=== PATIENT | male | born 1965 | race Hispanic/Latino ===

== ENCOUNTER 2016-11-08 12:32 | Emergency (ER) | payer OTHER ==
[~2016-11-08] VITALS: Ht 167.6 cm; Wt 117.9 kg
[~2016-11-08 12:32] MED LIST: GUAIFENESIN-COD10 ML PO; MEDROL4 M2 PO; PERCOCET 5-3251 EACH PO; TESSALON PERLE100 M1 PO; VENTOLIN HFA18 GM INH; ZITHROMAX500 M2 PO
[2016-11-08 13:07] VITALS: BP 185/110
--- NOTE | 2016-11-08 15:05 | ED NECK/BACK PAIN COMPLAINT ---
History of Present Illness General Chief Complaint: Low Back Pain/Injury Stated Complaint: LOW BACK PAIN Source: patient, family, old records Exam Limitations: no limitations Vital Signs & Intake/Output Vital Signs & Intake/Output Vital Signs Date Time Temp Pulse Resp B/P Pulse O2 O2 Flow FiO2 Ox Delivery Rate 11/08 1307 97.4 96 18 185/110 96 Room Air Allergies Coded Allergies: latex (BLISTERS 09/14/16) Reconcile Medications Albuterol Sulfate (Ventolin Hfa) 90 MCG HFA.AER.AD 2 PUF INH Q4-6 PRN PRN SHORNTESS OF BREATH Oxycodone HCl/Acetaminophen (Percocet 5-325 MG Tablet) 5 MG-325 MG TABLET 1 TAB PO Q6 PRN PAIN Triage Note: STATES THAT HE HAS HERNIATED DISK AND HE IS HAVING BACK PAIN, ALSO STATES THAT HE WAS IN THE HOSPITAL IN SEPTEMBER AND THAT HE HAD A COATES AND SINCE HE IS HAVING A LOT OF PENILE PAIN AND IT HURTS WHEN HE URINATES Triage Nurses Notes Reviewed? yes Onset: Abrupt Duration: week(s):, constant Timing: recent history Quality/Severity: moderate Location: lumbar spine Radiation: buttocks Method of Injury: unknown Loss of Consciousness: no loss of consciousness Modifying Factors: movement (CHANGE IN POSITION) Associated Symptoms: DYSURIA X 1 YEAR S/P COATES CATH PLACEMENT HPI: 51-year-old male with history of hypertension presents to emergency room complaining of bilateral lower back pain for the past 2 weeks. He denies any known specific injury or trauma hours states he's been told in the past that he is herniated disks. Pain intermittently radiates into his buttocks. He denies any numbness or tingling urinary or bowel incontinence abdominal pain hematuria fever chills. The patient is also complaining of a one year history of dysuria urgency frequency with urination after he had a Coates catheter placed at [facility] due to dysuria hematuria. He has not sought care for the symptoms until today. He has not been taking anything for his back pain there's been no recent trauma or fall. He denies any penile discharge or scrotal pain (CAROLANN HAYES) Past History Travel History Traveled to [place] past 21 day No Medical History Any Pertinent Medical History? see below for history Neurological: CVA EENT: NONE Cardiovascular: myocardial infarction Respiratory: NONE Gastrointestinal: NONE Hepatic: NONE Renal: NONE Musculoskeletal: NONE Psychiatric: NONE Endocrine: NONE Blood Disorders: NONE Cancer(s): NONE VIDEO SYSTEM REPAIRER/Reproductive: NONE History of CDIFF: No Surgical History Surgical History: non-contributory Psychosocial History What is your primary language Estonian Tobacco Use: Never used ETOH Use: denies use Illicit Drug Use: denies illicit drug use Family History Hx Contributory? No (CAROLANN HAYES) Review of Systems Review of Systems Constitutional: Reports: see HPI. All Other Systems: Reviewed and Negative Comments Review of systems: See HPI, All other systems negative. Constitutional, no chills no fever, no malaise HEENT: no sore throat no congestion, no ear pain Cardiovascular: No chest pain , no palpitation Skin, no jaundice no rashes, no change in skin Respiratory: No dyspnea no cough no sputum GI: No nausea no vomiting, no diarrhea, : dysuria No hematuria, frequency, no discharge Muscle skeletal: No joint pain, no back pain, no neck pain, Neurologic: No numbness no headache Psych: No stress . Heme/endocrine: No bruising no bleeding Immunology: No lymphadenopathy (CAROLANN HAYES) Physical Exam Physical Exam General Appearance: well developed/nourished, alert, awake Neck: normal inspection, supple, full range of motion, normal alignment Comments: Well-developed well-nourished person in no acute distress HEENT: Normal EENT exam; PERRL, EOMI. HEAD is atraumatic. moist mucous membranes. Neck: Supple, no lymphadenopathy, normal range of motion Back: Bilateral paralumbar muscle tenderness palpation no midline tenderness, no CVA tenderness. Full range of motion Cardiovascular: Regular rate and rhythms no murmurs rubs Respiratory: Chest nontender.There were no bony deformities, no asymmetry. No respiratory distress. Patient speaking in full complete sentences. Breath sounds clear to auscultation bilaterally: NO W/R/R Abdomen: Soft, nontender nondistended Extremity: No edema, straight-leg raise bilaterally full range of motion of extremities, normal and equal pulses bilaterally, 5 out of 5 strength noted to bilateral upper and lower extremities Neuro: Alert oriented x3, motor sensory normal, There were no obvious focal neurologic abnormalities. Skin: No appreciable rash on exposed skin, skin is warm and dry. Psych: Mood and affect is normal, memory and judgment is normal. (CAROLANN HAYES) Progress Differential Diagnosis: cauda equina syn, herniated disc, myofascial strain, pyelo/UTI, sciatica, spinal cord inj, thoracic outlet syn, T/L spine injury, ureterolithiasis Plan of Care: Orders Procedure Date/time Status Add-on Test (ER Only) 11/08 1414 Active CULTURE,URINE 11/08 1313 Active URINALYSIS 11/08 1312 Complete Laboratory Tests 11/08/16 1313: Urine Color YEL, Urine Clarity HAZY H, Urine pH 6.0, Ur Specific [place] >= 1.030, Urine Protein 100 H, Urine Ketones 15 H, Urine Nitrite NEG, Urine Bilirubin NEG@ICTO, Urine Urobilinogen 1.0, Ur Leukocyte Esterase NEG, Ur Microscopic SEDIMENT EXAMINED, Urine WBC 1-3 H, Ur Epithelial Cells FEW, Urine Mucus MANY H, Urine Hemoglobin NEG, Urine Glucose NEG Microbiology 11/08 1313 URINE ROUT: Urine Culture - RECD I discussed with the patient his urinalysis results NEED for close follow-up with urology regarding his dysuria that he has had for the past 1 year urine culture was sent. Patient denies any fall or recent trauma. Patient clinically looks well. Patient has no evidence of radiculopathy. No urinary bowel dysfunction. No numbness in the genital area. Strength intact. Gross sensation intact. Patient resting comfortably and in no apparent distress. Pain is worse with range of motion. Pain is reproducible IN back with no bruising or ecchymosis noted. . Patient is to follow-up with primary care doctor. May need MRI of the lower back at some point time. No concerns for cauda equina at this point time. I considered this diagnosis but patient does not have any symptoms consistent with cauda equina. Patient has no secondary causes of back pain. No cardiac, pulmonary, or abdominal complaints. No abdominal pain on exam. Cardiac pulmonary exam within normal limits. No rashes, afebrile, denies recent weight loss, dizziness, lightheadedness. Patient is ambulatory with steady gait clear for discharge (CAROLANN HAYES) Departure Departure Time of Disposition: 1518 Disposition: HOME OR SELF CARE Condition: Stable Clinical Impression Primary Impression: Acute exacerbation of chronic low back pain Secondary Impressions: Dysuria Referrals: GEE JUNIOR MD UNKNOWN (PCP/Family) Additional Instructions: rest, ice, ibuprofen 800mg every 8 hours for pain. percocet for right through pain use caution as this is a narcotic and will make you drowsy. No driving or drinking alcohol while taking Medrol Dosepak as directed. Follow-up with urologist Dr. Junior These prescriptions were sent to [facility] Departure Forms: Customer Survey General Discharge Information (JUSTIN REGAN,CAROLANN) PA/WIND TURBINE BLADE REPAIR TECHNICIAN Co-Sign Statement Statement: ED Attending supervision documentation- [] I saw and evaluated the patient. I have also reviewed all the pertinent lab results and diagnostic results. I agree with the findings and the plan of care as documented in the PA's/WIND TURBINE BLADE REPAIR TECHNICIAN's documentation. [X] I have reviewed the ED Record and agree with the PA's/WIND TURBINE BLADE REPAIR TECHNICIAN's documentation. [] Additions or exceptions (if any) to the PAs/WIND TURBINE BLADE REPAIR TECHNICIAN's note and plan are summarized below: [] (MAYNOR TEMPLE DO
[2016-11-08] MEDS ORDERED: IBUPROFEN800 M1 PO (15:21)
[2016-11-08] MEDS ORDERED: MEDROL4 M2 PO (15:21)
[2016-11-08] MEDS ORDERED: PERCOCET 5-3251 EACH PO (15:21)
== END 2016-11-08 15:25 ==
LOC: ERH 12:32
DX: M54.5 Low back pain (principal); R30.0 Dysuria
CPT/HCPCS: 81001; 87086

== ENCOUNTER 2016-11-25 08:11 | Emergency (ER) | payer OTHER ==
[~2016-11-25] VITALS: Ht 167.6 cm; Wt 117.9 kg
[~2016-11-25 08:11] MED LIST changes: +IBUPROFEN800 M1 PO
[2016-11-25 08:50] LABS: ABSOLUTE BASOPHIL COUNT 0 /CUMM (0.0-0.2); ABSOLUTE EOSINOPHIL COUNT 0.2 /CUMM (0.0-0.7); ABSOLUTE GRANULOCYTE CT 7.9 /CUMM (1.4-6.5); ABSOLUTE LYMPH COUNT 2.3 /CUMM (1.2-3.4); ABSOLUTE MONOCYTE COUNT 0.6 /CUMM (0.10-0.60); BASOPHIL % 0.4 % (0.0-2.0); EOSINOPHIL % 1.7 % (0-5); GRANULOCYTE % 72.1 % (42.2-75.2); MEAN CORPUSCULAR HGB 31.5 PG (27.0-31.0); MEAN CORPUSCULAR HGB CONC 34.4 G/DL (33.0-37.0); MEAN CORPUSCULAR VOLUME 91.6 FL (80.0-94.0); MEAN PLATELET VOLUME 8.8 FL (7.4-10.4); PLATELET COUNT 280 /CUMM (130-400); RBC DISTRIBUTION WIDTH 14.3 % (11.5-14.5); RED BLOOD CELL CT 5.13 /CUMM (4.70-6.10); WHITE BLOOD CELL COUNT 10.9 /CUMM (4.8-10.8)
--- NOTE | 2016-11-25 08:57 | ED GENERAL ADULT ---
History of Present Illness General Chief Complaint: Abdominal Pain/Flank Pain Stated Complaint: BIBA, ABD PAIN Source: patient, old records Exam Limitations: no limitations Allergies Coded Allergies: latex (BLISTERS 09/14/16) Reconcile Medications Cholesterol Control,High & Low (Accutrend Cholesterol Control) 1 EACH EACH CHOLESTEROL (Reported) UNKNOWN NAME OF MED/DOSE Ibuprofen 800 MG TABLET 1 TAB PO TID PAIN Metoprolol Succ XL (Toprol XL) 25 MG TAB HTN (Reported) PT UNSURE OF DOSE Ondansetron HCl (Zofran) 4 MG TABLET 1 TAB PO Q6 NAUSEA Triage Note: PT BIBA FROM HOME FOR C/O ABD PAIN AND PRE-SYNCOPE THIS AM. PT WAS AWAKENED BY EPIGASTRIC PAIN. PT AMBULATED TO BATHROOM, FELT NAUSEOUS AND LIKE HE WAS GOING TO PASS OUT. PT DID NOT PASS OUT. DENIES SOB, C/P. ARRIVES HYPERTENSIVE AT 218/118. PT IS COMPLIANT WITH [facility]. H/O MA LAST YEAR. DR CORCORAN IN FOR EVAL. Triage Nurses Notes Reviewed? yes HPI: 51-year-old man seen for evaluation of low back pain, abdominal pain, nausea, and dizziness. He reports waking up at 6 AM this morning and feeling very dizzy when he went to stand up and felt "not right". He sat on the bed feeling nauseated with associated abdominal pain and called his sister whom then subsequently called emergency medical services. He is currently complaining of lightheadedness, chills, dizziness, chest pain, shortness of breath, abdominal pain, low back pain, nausea and denies any blurred/double vision, confusion, fever, vomiting, numbness/tingling. His blood pressure was reportedly markedly elevated in the field and he reports taking his blood pressure medication last night and this morning. (JEWELL CATALAN,KARENA) Vital Signs & Intake/Output Vital Signs & Intake/Output Vital Signs Date Time Temp Pulse Resp B/P Pulse O2 O2 Flow FiO2 Ox Delivery Rate 11/25 1211 97.4 82 18 152/100 95 Room Air 11/25 1106 92 Room Air 11/25 1025 98.9 79 20 150/100 94 Room Air 11/25 0924 85 20 160/100 93 Room Air 11/25 0900 98 Nasal 2.0L Cannula 11/25 0821 100 20 96 Nasal 2.0L Cannula 11/25 0817 99.0 99 20 218/118 89 Room Air Past History Travel History Traveled to [place] past 21 day No Medical History Any Pertinent Medical History? see below for history Neurological: CVA EENT: NONE Cardiovascular: myocardial infarction Respiratory: NONE Gastrointestinal: NONE Hepatic: NONE Renal: NONE Musculoskeletal: NONE Psychiatric: NONE Endocrine: NONE Blood Disorders: NONE Cancer(s): NONE HEALTHCARE SCIENCE SPECIALIST/Reproductive: NONE History of CDIFF: No Surgical History Surgical History: non-contributory Psychosocial History What is your primary language Arabic Tobacco Use: Current Not Daily ETOH Use: denies use Illicit Drug Use: denies illicit drug use Family History Hx Contributory? No (KARENA CORCORAN MD) Review of Systems Review of Systems Constitutional: Reports: see HPI. (KARENA CORCORAN MD) Physical Exam Physical Exam General Appearance: well developed/nourished, mild distress Comments: General -well-developed, obese man in mild distress HEENT - NCAT, PERRL, EOMI, anicteric sclera Cardio - S1, S2 w/o murmurs/gallops/rubs Resp -bibasilar wheezing without any obvious crackles GI - soft, epigastric tenderness without guarding or rigidity, nondistended, bowel sounds present Neuro - Awake and alert, CN II - XII grossly intact Extremities - no edema, pulses intact Core Measures ACS in differential dx? No CVA/TIA Diagnosis: No Severe Sepsis Present: No Septic Shock Present: No (KARENA CORCORAN MD) Progress Differential Diagnoses I considered the following diagnoses in my evaluation of the patient: Gastroenteritis, influenza, pancreatitis Initial ED EKG: normal p-waves, normal sinus rhythm, abnormal Q waves, poor R- wave progression Comments: Given the acute onset of patient's complaints multiple lab studies were ordered to rule out diagnoses such as pancreatitis, infection, or cardiac issues. Complete blood count was within normal limits. Compensative metabolic panel demonstrated glucose of 294 with a normal lipase. Rapid flu was negative. Patient was given intravenous normal saline, Zofran, acetaminophen, and Percocet for pain. EKG was unremarkable demonstrating only old Q waves. Blood/urine cultures were obtained. Urinalysis was unremarkable. Patient was ordered a regular diet for lunch which he tolerated well. Patient is to be discharged to home with a prescription for Zofran and ibuprofen for pain with instruction to follow-up with his primary care provider for further evaluation. (KARENA CORCORAN MD) Plan of Care: Orders Procedure Date/time Status Regular Diet 11/25 L Active RAPID VIRAL INFLUENZA A 11/25 834 Complete CULTURE,URINE 11/25 834 Active BLOOD CULTURE 11/25 834 Active URINALYSIS 11/25 834 Complete LIPASE 11/25 834 Complete COMPREHENSIVE METABOLIC PANEL 11/25 834 Complete CBC WITHOUT DIFFERENTIAL 11/25 834 Complete EKG 11/25 821 Active Laboratory Tests 11/25/16 1030: Urinalysis LIGHT H, Urine Color YEL, Urine Clarity HAZY H, Urine pH 6.0, Ur Specific [place] 1.025, Urine Protein TRACE H, Urine Ketones NEG, Urine Nitrite NEG, Urine Bilirubin NEG, Urine Urobilinogen 0.2, Ur Leukocyte Esterase NEG, Ur Microscopic SEDIMENT EXAMINED, Urine RBC 1-3, Urine WBC 1-3 H, Ur Epithelial Cells MOD H, Hyaline Casts FEW H, Urine Mucus MANY H, Urine Hemoglobin NEG, Urine Glucose >=1000 H 11/25/16 0912: Anion Gap 8, Estimated GFR > 60, BUN/Creatinine Ratio 15.0, Glucose 294 H, Calcium 8.6, Total Bilirubin 0.4, AST 24, ALT 57, Alkaline Phosphatase 104, Total Protein 5.3 L, Albumin 3.1 L, Globulin 2.2, Albumin/Globulin Ratio 1.4, Lipase 73 11/25/16 0840: CBC w Diff NO MAN DIFF REQ, RBC 5.13, MCV 91.6, MCH 31.5 H, RDW 14.3, MPV 8.8, Gran % 72.1, Lymphocytes % 20.7, Monocytes % 5.1, Eosinophils % 1.7, Basophils % 0.4, Absolute Granulocytes 7.9 H, Absolute Lymphocytes 2.3, Absolute Monocytes 0.6, Absolute Eosinophils 0.2, Absolute Basophils 0, PUBS MCHC 34.4 Microbiology 11/25 1030 URINE ROUT: Urine Culture - RECD 11/25 911 BLOOD: Blood Culture - RECD 11/25 911 BLOOD: Blood Culture - RECD Departure Departure Disposition: HOME OR SELF CARE Condition: Stable Clinical Impression Primary Impression: Viral gastroenteritis Referrals: UNKNOWN Additional Instructions: Take Zofran and ibuprofen as directed for your symptoms of pain and nausea. Follow-up with your primary care provider after discharge. Call 911 or return to the ED should your symptoms worsen. Departure Forms: Customer Survey General Discharge Information Prescriptions: Current Visit Scripts Ondansetron HCl (Zofran) 1 TAB PO Q6 #20 TAB Ibuprofen 1 TAB PO TID #30 TAB (KARENA CORCORAN MD) Resident Co-Sign Statement Statement: ED Attending supervision documentation- [x] I saw and evaluated the patient. I have also reviewed all the pertinent lab results and diagnostic results. I agree with the findings and the plan of care as documented in the Resident's documentation. [] I have reviewed the ED Record and agree with the Resident's documentation. [] Additions or exceptions (if any) to the Resident's note and plan are summarized below: [] (LUCY CATALAN,MAYNOR Berry) Critical Care Note Critical Care Note Critical Care Time: non-applicable (KARENA CORCORAN MD)
[2016-11-25] MEDS ORDERED: ACCUTREND CHOL1 EAC1 (09:02)
[2016-11-25] MEDS ORDERED: TOPROL XL25 M1 PO (09:02)
--- NOTE | 2016-11-25 09:11 | RADIOLOGY REPORT ---
EXAMINATION: XR PORTABLE CHEST CLINICAL INFORMATION: Pneumonia COMPARISON: None TECHNIQUE: Portable AP semiupright 55 degrees view of the chest was obtained. FINDINGS: Lung volumes are low likely due to suboptimal inspiration. Minimal linear opacity at the left base likely discoid atelectasis. Lungs otherwise clear. The cardiac silhouette mediastinum and pulmonary vascularity are normal. IMPRESSION: Low lung volumes likely due to suboptimal inspiration. Minimal linear opacity at the left base likely discoid atelectasis No radiographic signs specific or suggestive of pneumonia
[2016-11-25] MEDS ORDERED: ZOFRAN4 M2 PO (12:03)
[2016-11-25] MEDS ORDERED: IBUPROFEN800 M1 PO (12:03)
[2016-11-25 12:11] VITALS: BP 152/100
== END 2016-11-25 12:39 ==
LOC: ERH 08:11
PROVIDERS: Emergency Medicine
DX: A08.4 Viral intestinal infection, unspecified (principal); R42 Dizziness and giddiness; R07.9 Chest pain, unspecified; R06.02 Shortness of breath; M54.5 Low back pain
CPT/HCPCS: 81001; 87040; 87086; 87804; 87804-59; 93005; 93010; 96361; 96374; 96375; J0131; J2405

== ENCOUNTER 2017-01-05 17:41 | Observation (INO) | payer OTHER ==
[~2017-01-05] VITALS: Ht 167.6 cm; Wt 117.9 kg
[~2017-01-05 17:41] MED LIST changes: +ACCUTREND CHOL1 EAC1; +TOPROL XL25 M1 PO; +ZOFRAN4 M2 PO
--- NOTE | 2017-01-05 17:45 | NUR ---
PT STATES HE HAD A STROKE AND AN ME LAST YEAR. PT STATES LAST NIGHT HE WAS ASLEEP AND HAD TO GO TO THE BATHROOM AND STATES HE HAD A DIFFICULTY GETTING OUT OF BED SO HE TOOK A NITRO PILL. PT STATES TODAY HIS IS HAVING NUMBNESS AND PAIN IN THE RIGHT SIDE OF HIS HEAD.
--- NOTE | 2017-01-05 19:59 | NUR ---
PT TO ROOM 7, AMB WITH NO DIFFICULTY, AWAITING EVAL AT THIS TIME
--- NOTE | 2017-01-05 20:16 | ED NEURO DEFICIT/STROKE ---
History of Present Illness General Chief Complaint: General Adult Stated Complaint: FACIAL PAIN/NUMB SHOULDER Source: patient, old records Exam Limitations: no limitations Vital Signs & Intake/Output Vital Signs & Intake/Output Vital Signs Date Time Temp Pulse Resp B/P Pulse O2 O2 Flow FiO2 Ox Delivery Rate 01/05 2206 99 Room Air 01/05 2041 151/84 01/05 1744 97.7 114 16 167/109 98 Room Air Allergies Coded Allergies: latex (BLISTERS 09/14/16) Reconcile Medications Cholesterol Control,High & Low (Accutrend Cholesterol Control) 1 EACH EACH CHOLESTEROL (Reported) UNKNOWN NAME OF MED/DOSE Ibuprofen 800 MG TABLET 1 TAB PO TID PAIN Metoprolol Succ XL (Toprol XL) 25 MG TAB HTN (Reported) PT UNSURE OF DOSE Ondansetron HCl (Zofran) 4 MG TABLET 1 TAB PO Q6 NAUSEA Triage Note: PT STATES HE HAD A STROKE AND AN [place] LAST YEAR. PT STATES LAST NIGHT HE WAS ASLEEP AND HAD TO GO TO THE BATHROOM AND STATES HE HAD A DIFFICULTY GETTING OUT OF BED SO HE TOOK A NITRO PILL. PT STATES TODAY HIS IS HAVING NUMBNESS AND PAIN IN THE RIGHT SIDE OF HIS HEAD. Triage Nurses Notes Reviewed? yes Onset: Abrupt Duration: day(s): (5), constant, continues in ED Timing: recent history Severity: moderate, severe Altered Sensations: RUE, RLE, right facial Glaucoma? No HPI: [id number] male comes in to emergency room complaining of right-sided numbness through his entire body. Patient reports that he feels like his eye is out of the right side. Patient has been experiencing pain in the right side of his face. Denies any slurred speech. Denies any vomiting or vision loss. Patient reports that he has a history of previous stroke and heart attack. He has a history of hypertension as well. Denies any anticoagulants. Symptoms began about 5 days ago on Tuesday. Patient reports he does not know why he took so long to come in. (AYANNA VAZQUEZ) Past History Travel History Traveled to [place] past 21 day No Medical History Any Pertinent Medical History? 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 No (AYANNA VAZQUEZ) Review of Systems Review of Systems Constitutional: Reports: no symptoms. EENTM: Reports: no symptoms. Respiratory: Reports: no symptoms. Cardiovascular: Reports: no symptoms. GI: Reports: no symptoms. Genitourinary: Reports: no symptoms. Musculoskeletal: Reports: no symptoms. Skin: Reports: no symptoms. Neurological/Psychological: Reports: see HPI. Hematologic/Endocrine: Reports: no symptoms. Immunologic/Allergic: Reports: no symptoms. All Other Systems: Reviewed and Negative (AYANNA VAZQUEZ) Physical Exam Physical Exam General Appearance: well developed/nourished, no apparent distress, alert Head: atraumatic, normal appearance Eyes: Bilateral: normal appearance, PERRL, EOMI. Ears, Nose, Throat: normal ENT inspection, moist mucous membrane Neck: normal inspection, supple, full range of motion Respiratory: normal breath sounds, no respiratory distress Cardiovascular: regular rate/rhythm Gastrointestinal: soft Back: normal inspection Extremities: normal range of motion Psychiatric: awake, alert, oriented x 3 Cranial Nerves: normal hearing, normal speech, PERRL Coordination/Gait: normal gait Motor/Sensory: no motor/sensory deficits, decreased sensation right side of body Skin: intact, normal color Core Measures CVA/TIA Diagnosis: Yes Severe Sepsis Present: No Septic Shock Present: No (AYANNA VAZQUEZ) Progress Differential Diagnosis: acute glaucoma, Berg's Palsy, drug intoxication, electrolyte imbalance, encephalitis, hypoglycemia, intracranial Hem., intracranial mass/tumor, meningitis, migraine STEVEN, seizure disorder, stroke, subarachnoid Hem., vertebrobasilar insuff. Plan of Care: Orders Procedure Date/time Status Patient Data 01/[address] in observation 01/05 2154 Active TROPONIN LEVEL 01/06 2016 Complete COMPREHENSIVE METABOLIC PANEL 01/06 2016 Complete CBC WITHOUT DIFFERENTIAL 01/06 2016 Complete EKG 01/06 2016 Active Laboratory Tests 01/05/172027: Anion Gap 6, Estimated GFR > 60, BUN/Creatinine Ratio 25.0, Glucose 299 H, Calcium 9.3, Total Bilirubin 0.4, AST 22, ALT 52, Alkaline Phosphatase 143 H, Troponin I < 0.01, Total Protein 5.8 L, Albumin 3.5, Globulin 2.3, Albumin/ Globulin Ratio 1.5, CBC w Diff NO MAN DIFF REQ, RBC 5.01, MCV 91.8, MCH 30.9, RDW 14.0, MPV 8.1, Gran % 70.5, Lymphocytes % 21.8, Monocytes % 5.7, Eosinophils % 1.6, Basophils % 0.4, Absolute Granulocytes 9.2 H, Absolute Lymphocytes 2.8, Absolute Monocytes 0.7 H, Absolute Eosinophils 0.2, Absolute Basophils 0.1, PUBS MCHC 33.7 Diagnostic Imaging: Viewed by Me: CT Scan. Discussed w/RAD: CT Scan. Radiology Impression: EXAM TYPE: CAT - CT HEAD WO IV CONTRAST EXAMINATION: CT HEAD WITHOUT CONTRAST CLINICAL INFORMATION: 51-year-old man with right sided numbness. COMPARISON: None TECHNIQUE: Contiguous axial imaging was performed from the skull base to vertex without intravenous administration of contrast. DLP: 601 mGy-cm FINDINGS: There is no evidence of acute intracranial hemorrhage or territorial infarction. No abnormal mass effect or midline shift is seen. Spears to white matter differentiation is well preserved. No extra-axial fluid collections are identified. The ventricles are normal in size. There is no abnormal attenuation within the brain parenchyma. The osseous structures and soft tissues are normal. The mastoid air cells and visualized portions of the paranasal sinuses are well aerated. IMPRESSION: No acute intracranial pathology. DICTATED BY: BEATA VILLALBA MD DATE/TIME DICTATED:01/05/172053 POINTER HELPER: JONATHAN DATE/TIME TRANSCRIBED:01/05/172053 Initial ED EKG: normal intervals, normal p-waves, normal QRS complex, normal sinus rhythm, rate (95) Prior EKG: unchanged (AYANNA VAZQUEZ) Departure Departure Disposition: STILL A PATIENT Condition: Stable Clinical Impression Primary Impression: Lacunar infarct, acute Referrals: HAVEN CATALAN,DAISY Fowler (PCP/Family) Departure Forms: Customer Survey General Discharge Information Observation Note Spoke With: TANISHA HENDRICKSON MD Physician Advisor Notified: RICHARD CATALAN,CORTEZ [address] Patient In: Non-ED OBS Care Area Rationale for Observation: My rational for observation is as follows . Patient will require neurology consultation. MRI. Carotid artery Dopplers. Echocardiogram. Blood pressure management. (RANDOLPH REGAN,AYANNA) PA/OFFICE ADMINISTRATOR Co-Sign Statement Statement: ED Attending supervision documentation- [] I saw and evaluated the patient. I have also reviewed all the pertinent lab results and diagnostic results. I agree with the findings and the plan of care as documented in the PA's/OFFICE ADMINISTRATOR's documentation. [X] I have reviewed the ED Record and agree with the PA's/OFFICE ADMINISTRATOR's documentation. [] Additions or exceptions (if any) to the PAs/OFFICE ADMINISTRATOR's note and plan are summarized below: [] (RICHARD CATALAN,CORTEZ [place])
[2017-01-05 20:45] LABS: ABSOLUTE BASOPHIL COUNT 0.1 /CUMM (0.0-0.2); ABSOLUTE EOSINOPHIL COUNT 0.2 /CUMM (0.0-0.7); ABSOLUTE GRANULOCYTE CT 9.2 /CUMM (1.4-6.5); ABSOLUTE LYMPH COUNT 2.8 /CUMM (1.2-3.4); ABSOLUTE MONOCYTE COUNT 0.7 /CUMM (0.10-0.60); BASOPHIL % 0.4 % (0.0-2.0); EOSINOPHIL % 1.6 % (0-5); GRANULOCYTE % 70.5 % (42.2-75.2); MEAN CORPUSCULAR HGB 30.9 PG (27.0-31.0); MEAN CORPUSCULAR HGB CONC 33.7 G/DL (33.0-37.0); MEAN CORPUSCULAR VOLUME 91.8 FL (80.0-94.0); MEAN PLATELET VOLUME 8.1 FL (7.4-10.4); PLATELET COUNT 297 /CUMM (130-400); RED BLOOD CELL CT 5.01 /CUMM (4.70-6.10); WHITE BLOOD CELL COUNT 13.1 /CUMM (4.8-10.8)
--- NOTE | 2017-01-05 20:49 | NUR ---
PT C/O "A REALLY BAD HEADACHE" AND REQUESTING THIS RN TO TURN VOLUME ON TV UP, WILL NOTIFY PROVIDER.
--- NOTE | 2017-01-05 21:02 | CT SCAN REPORT ---
EXAMINATION: CT HEAD WITHOUT CONTRAST CLINICAL INFORMATION: 51-year-old man with right sided numbness. COMPARISON: None TECHNIQUE: Contiguous axial imaging was performed from the skull base to vertex without intravenous administration of contrast. DLP: 601 mGy-cm FINDINGS: There is no evidence of acute intracranial hemorrhage or territorial infarction. No abnormal mass effect or midline shift is seen. Spears to white matter differentiation is well preserved. No extra-axial fluid collections are identified. The ventricles are normal in size. There is no abnormal attenuation within the brain parenchyma. The osseous structures and soft tissues are normal. The mastoid air cells and visualized portions of the paranasal sinuses are well aerated. IMPRESSION: No acute intracranial pathology.
--- NOTE | 2017-01-05 22:04 | NUR ---
IV ESTABLISHED, PT CONTINUES TO COMPLAIN OF SEVERE R SIDED HEAD PAIN, REPORTING NO RELIEF WITH PERCOCET, MEDICATED WITH ASA PER EMAR. ALL NEUROS GROSSLY IN CHECK, REQUESTING TV VOLUME TURNED UP AND TEXTING ON CELL PHONE.
--- NOTE | 2017-01-05 22:12 | NUR ---
PLEASE CALL SON WITH ANY QUESTIONS OR CONCERNS: NIGHAT MAIN [phone]
--- NOTE | 2017-01-05 22:34 | NUR ---
PT MEDICATED WITH MORPHINE PER EMAR
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
--- NOTE | 2017-01-05 23:04 | NUR ---
HOUSE STAFF TO BEDSIDE
[2017-01-05] MEDS ORDERED: ATORVASTATIN CA40 M1 PO (23:11)
--- NOTE | 2017-01-05 23:48 | NUR ---
PT GOING TO ROOM 179-2
--- NOTE | 2017-01-05 23:59 | NUR ---
MEDICATED WITH TYLENOL FOR C/O HEADACHE
[2017-01-06 01:34] VITALS: BP 150/80
--- NOTE | 2017-01-06 03:35 | NUR ---
PT ARRIVED TO FLOOR APPX 0130 WITH MONITOR AND ER NURSE AND MST. PT CALM AND COOPERATIVE, A&0 X 3, NSR ON MONITOR, 94% ON RA, ABDOMEN DISTENDED MILDLY FIRM, BOWEL SOUNDS POSITIVE, 10/10 PAIN HEADACHE. LUNG SOUNDS CLEAR. PT REQUESTED FOOD AND WAS GIVEN CEREAL AND MILK. PAIN MEDICATION ADMINISTERED APPX 0300, PT RESTING COMFORTABLY. WILL CONTINUE TO MONITOR
[2017-01-06 08:04] VITALS: BP 152/82
[2017-01-06 08:32] LABS: ABSOLUTE BASOPHIL COUNT 0 /CUMM (0.0-0.2); ABSOLUTE EOSINOPHIL COUNT 0.3 /CUMM (0.0-0.7); ABSOLUTE GRANULOCYTE CT 6.1 /CUMM (1.4-6.5); ABSOLUTE LYMPH COUNT 3.4 /CUMM (1.2-3.4); ABSOLUTE MONOCYTE COUNT 0.8 /CUMM (0.10-0.60); BASOPHIL % 0.4 % (0.0-2.0); EOSINOPHIL % 2.6 % (0-5); GRANULOCYTE % 57.7 % (42.2-75.2); HEMATOCRIT 48.8 % (42-52); MEAN CORPUSCULAR HGB 31.1 PG (27.0-31.0); MEAN CORPUSCULAR HGB CONC 33.5 G/DL (33.0-37.0); MEAN CORPUSCULAR VOLUME 92.8 FL (80.0-94.0); MEAN PLATELET VOLUME 8.2 FL (7.4-10.4); PLATELET COUNT 291 /CUMM (130-400); RBC DISTRIBUTION WIDTH 14.3 % (11.5-14.5); RED BLOOD CELL CT 5.26 /CUMM (4.70-6.10); WHITE BLOOD CELL COUNT 10.6 /CUMM (4.8-10.8)
--- NOTE | 2017-01-06 08:54 | PN- Housestaff ---
JUNAID DORSEY 01/06/17 0854: Subjective Follow-up For: Right-sided numbness, speech difficulty Right-sided headache Complaints: no complaints Tele-Events Since Last Visit: Normal sinus rhythm, heart rate 70-84. No overnight events. Subjective: Patient was comfortable this morning. Did not have any complaints. Took a detailed history, and examining him. As per the patient, he has been compliant with his medications. As per patient, he had similar complaints in the past with tingling numbness sensation in right upper and lower extremities. He also had numbness on the same side of the face, and tremors on the right side of right upper extremity. Did not have any loss of bladder/bowel function. No clear history of seizures. Current smoker, and has not been adherent with good dietary habits. Seemed concerned about his elevated HbA1c. Discussed with him about weight loss, and adherence to medications. Review of Systems Constitutional: Reports: see HPI. Objective Last 24 Hrs of Vital Signs/I&O Vital Signs Date Time Temp Pulse Resp B/P Pulse O2 O2 Flow FiO2 Ox Delivery Rate 01/06 0804 97.9 88 20 152/82 93 Room Air 01/06 0134 97.5 86 20 150/80 94 Room Air 01/05 2253 98.3 84 14 155/94 100 Room Air 01/05 2206 99 Room Air 01/05 2041 151/84 01/05 1744 97.7 114 16 167/109 98 Room Air Intake & Output 01/06 1600 01/06 0800 01/06 0000 Intake Total 370 Output Total 300 Balance 70 Intake, IV 50 Intake, Oral 320 Output, Urine 300 Patient 260 lb 260 lb Weight Physical Exam General Appearance: No Acute Distress Other Physical Findings: General Exam: AAOx3, No acute distress, Skin: No rashes, no breakdown HEENT: PERRLA, EOMI Neck: Supple, No JVD No cervical lymphadenopathy CVS: Reg Rate, Normal S1,S2, No MGR Resp: Normal air entry, no ronchi/rales Abdomen: Soft, No tenderness, Normal Bowel Sounds Neuro: Normal Speech, Strength 5/5 b/l x 4 extremities, Sensation intact, CN III -XII NL, Reflexes 2+, no focal neurological deficits noted. Extremities: No cyanosis, pedal edema, tremors on the right upper extremity ( intentional) Current Medications: Current Medications Sig/Glenda Start time Last Medication Dose Route Stop Time Status Admin Acetaminophen 0 .STK-MED ONE 01/057 DC PO Acetaminophen 650 MG Q6P PRN 01/05 2315 AC 01/06 PO 0000 Aspirin 81 MG ONCE ONE 01/05 2200 DC 01/05 PO 01/05 Aspirin 0 .STK-MED ONE 01/05 2159 DC PO Aspirin Buffered 81 MG DAILY 01/06 1000 AC PO Atorvastatin Calcium 40 MG 1700 01/06 170 AC PO Enoxaparin Sodium 40 MG DAILY 01/06 1000 AC SC Ibuprofen 600 MG Q6P PRN 01/05 2315 AC PO Morphine Sulfate 0 .STK-MED ONE 01/05 2226 DC .ROUTE Morphine Sulfate 4 MG ONCE ONE 01/05 2200 DC 01/05 IV 01/05 Oxycodone/ 2 TAB Q6P PRN 01/05 2315 AC 01/06 Acetaminophen PO 0703 Oxycodone/ 1 TAB ONCE ONE 01/05 2200 DC 01/05 Acetaminophen PO 01/05 Oxycodone/ 0 .STK-MED ONE 01/05 2117 DC Acetaminophen PO Last 24 Hrs of Lab/Jose Results Last 24 Hrs of Labs/Mics: Laboratory Tests 01/06/17 0635: Anion Gap 8, Estimated GFR Pending, BUN/Creatinine Ratio 26.7 H, Triglycerides 118, Cholesterol 144, LDL Cholesterol, Calc 69, HDL Cholesterol 52, Cholesterol/ HDL Ratio 3, CBC w Diff NO MAN DIFF REQ, RBC 5.26, MCV 92.8, MCH 31.1 H, RDW 14.3, MPV 8.2, Gran % 57.7, Lymphocytes % 32.0, Monocytes % 7.3, Eosinophils % 2.6, Basophils % 0.4, Absolute Granulocytes 6.1, Absolute Lymphocytes 3.4, Absolute Monocytes 0.8 H, Absolute Eosinophils 0.3, Absolute Basophils 0, PUBS MCHC 33.5 01/05/172027: Anion Gap 6, Estimated GFR > 60, BUN/Creatinine Ratio 25.0, Glucose 299 H, Hemoglobin A1c Pending, Calcium 9.3, Total Bilirubin 0.4, AST 22, ALT 52, Alkaline Phosphatase 143 H, Troponin I < 0.01, Total Protein 5.8 L, Albumin 3.5, Globulin 2.3, Albumin/Globulin Ratio 1.5, TSH 0.906, Free T4 1.21, CBC w Diff NO MAN DIFF REQ, RBC 5.01, MCV 91.8, MCH 30.9, RDW 14.0, MPV 8.1, Gran % 70.5, Lymphocytes % 21.8, Monocytes % 5.7, Eosinophils % 1.6, Basophils % 0.4, Absolute Granulocytes 9.2 H, Absolute Lymphocytes 2.8, Absolute Monocytes 0.7 H, Absolute Eosinophils 0.2, Absolute Basophils 0.1, PUBS MCHC 33.7 Assessment/Plan Assessment: Mr. Haq is a 51-year-old man with a past history of hypertension, hyperlipidemia, coronary artery disease, history of DVT (prolonged), previous symptoms of neurological deficits is being evaluated for right-sided facial and upper and lower extremity numbness/pain in sensation 3 days. At the time of admission, vitals-temperature 97.7, pulse rate 84, respiration 16 , blood pressure 155/94, pulse ox 99% on room air. Findings indicated WBC 13.1, hemoglobin 15.5, platelets 297, sodium 132, potassium 4.3, BUN 15, serum creatinine 0.6. Alkaline phosphatase 143, with normal AST and ALT. Cardiac enzymes-negative. Neurological findings-CT head did not reveal any acute process. Admission diagnosis: #1 to rule out CVA #2 seizure #3 conversion disorder Below is the problem list and plan: #1 tingling, numbness sensation on the right side of the body-likely due to CVA. CT head was unremarkable for any acute intracranial bleed/infarct. Patient declines MRI, for further evaluation. Reports claustrophobia. TSH within normal limits. Seizure precaution. Neuro checks. Permissive hypertension at least for the next 24 hours. Resume antihypertensives in the a.m. Aspirin and high-dose statin. #2 hypertension-continue antihypertensives, at home dose. Start in a.m. Start lisinopril 10 mg by mouth daily. Shown to have beneficial effects CVA. #3 diabetes-HbA1c 9.9. Insulin sliding scale low-dose. Start long-acting insulin in the a.m. May benefit from DPP 4 inhibitor. #4 pain management-currently on oxycodone. Start gabapentin for neuropathic pain, has these symptoms could likely be from complications of diabetes. #5 DVT prophylaxis-mechanical. May start heparin subcutaneous in a.m. given history of strokes. Continue to monitor on telemetry for any arrhythmias. Problem List: 1. HLD (hyperlipidemia) 2. HTN (hypertension) 3. History of DC (myocardial infarction) 4. Acute exacerbation of chronic low back pain Pain Ratin Pain Location: Low back Pain Goal: Pain 4 or less Pain Plan: Oxycodone Ibuprofen Tomorrow's Labs & Rationales: No labs necessary. Current labs stable. TIESHA HAIDER MD 01/06/17 1143: Attending MD Review Statement Attending Statement Attending MD Statement: examined this patient, discuss w/resident/PA/JACQUARD LACE WEAVER, agreed w/resident/PA/JACQUARD LACE WEAVER, reviewed EMR data (avail) Attending Assessment/Plan: Patient with right sided tingling and mild weakness. CT head negative. No telemetry events. Labs reviewed. Will obtain MRI head, neurology consult, echocardiogram. Endocrine consult for HbA1c 9.9%, currently on sliding scale. Anticipated discharge later today or tomorrow morning pending further workup. Will continue ASA and high dose statin for now, PT evaluation. Passed swallow eval.
--- NOTE | 2017-01-06 10:23 | ULTRASOUND REPORT ---
EXAMINATION: US DUPLEX CAROTID AND VERTEBRAL CLINICAL INFORMATION: 51-year-old male with TIA/CVA, weakness and headache. COMPARISON: None TECHNIQUE: Real-time ultrasound and Doppler techniques (integrating B-mode 2D vascular images, Doppler spectral analysis and color flow Doppler imaging) were utilized to interrogate the extracranial carotid and vertebral arteries bilaterally. The degree of stenosis determined by criteria similar to NASCET. FINDINGS: Patient's body habitus and respirations limits the exam quality. 1. On the right: No plaque is present at the carotid bifurcation and all velocity measurements are normal and do not suggest a stenosis of greater than 50% diameter reduction in the right ICA. The vertebral artery is patent demonstrating antegrade flow. The common carotid artery velocity is 67 cm/s. The internal carotid artery velocities are 61 cm/s systolic and 30 cm/s diastolic. The external carotid artery velocity is 93 cm/s. 2. On the left: Small amount of calcified plaque is present at the carotid bifurcation but velocity measurements are normal and do not suggest a stenosis of greater than 50% diameter reduction in the left ICA. The vertebral artery is patent demonstrating antegrade flow. The common carotid artery velocity is 87 cm/s. The internal carotid artery velocities are 78 cm/s systolic and 34 cm/s diastolic. The external carotid artery velocity is 93 cm/s. IMPRESSION: There is a small amount of calcified plaque present in the left internal carotid artery with normal velocities consistent with a minimal 0-49% stenosis. The right side is normal with no plaque seen.
--- NOTE | 2017-01-06 13:13 | NUR ---
PHYSICAL THERAPY. RECEIVED PT CONSULT AND REVIEWED Pt'S CHART. PT OBSERVED Pt AMBULATING AROUND ROOM INDEPENDENTLY AND W/O DIFFICULTY. Pt REPORTS 2 PHIL HOME. Pt STATES THAT HE IS CONFIDENT IN HIS ABILITY TO PERFORM STAIRS. NO FURTHER SKILLED PT INDICATED AT THIS TIME.
[2017-01-06 16:40] VITALS: BP 126/84
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
[2017-01-06 22:00] VITALS: BP 148/80
--- NOTE | 2017-01-07 05:49 | PN- Housestaff ---
JUNAID DORSEY 01/07/17 0548: Subjective Follow-up For: Stroke New onset diabetes Complaints: no complaints Tele-Events Since Last Visit: Normal sinus rhythm, heart rate 67-91. Subjective: The patient was comfortable this morning. Did not have any complaints. He feels improved compared to yesterday. Review of Systems Constitutional: Reports: see HPI. Objective Last 24 Hrs of Vital Signs/I&O Vital Signs Date Time Temp Pulse Resp B/P Pulse O2 O2 Flow FiO2 Ox Delivery Rate 01/06 1640 98.4 76 20 126/84 95 Room Air 01/06 1048 Room Air 01/06 0804 97.9 88 20 152/82 93 Room Air Intake & Output 01/07 0800 01/07 0000 01/06 1600 Intake Total 600 Output Total Balance 600 Intake, Oral 600 Physical Exam General Appearance: No Acute Distress Other Physical Findings: General Exam: AAOx3, No acute distress, Skin: No rashes, no breakdown HEENT: PERRLA, EOMI Neck: Supple, No JVD No cervical lymphadenopathy CVS: Reg Rate, Normal S1,S2, No MGR Resp: Normal air entry, no ronchi/rales Abdomen: Soft, No tenderness, Normal Bowel Sounds Neuro: Normal Speech, Strength 5/5 b/l x 4 extremities, Sensation intact, CN III -XII NL, Reflexes 2+ Extremities: No cyanosis, pedal edema Current Medications: Current Medications Sig/Glenda Start time Last Medication Dose Route Stop Time Status Admin Acetaminophen 650 MG Q6P PRN 01/05 2315 AC 01/06 PO 0000 Aspirin Buffered 81 MG DAILY 01/06 1000 DC 01/06 PO 0915 Atorvastatin Calcium 80 MG 1700 01/07 1700 AC PO Atorvastatin Calcium 40 MG 1700 01/06 1700 DC 01/06 PO 1702 Clopidogrel Bisulfate 75 MG DAILY 01/07 1000 AC PO Enoxaparin Sodium 40 MG DAILY 01/06 1000 AC 01/06 SC 0916 Gabapentin 300 MG Q8 01/06 2200 AC 01/07 PO 0523 Ibuprofen 600 MG Q6P PRN 01/05 2315 AC PO Insulin Aspart 0 TIDAC 01/06 1200 AC 01/06 SC 1702 Lisinopril 10 MG DAILY 01/07 1000 AC PO Lorazepam 0.25 MG ONE ONE 01/06 1930 DC 01/06 PO 03/30 1931 2133 Metformin HCl 500 MG 0800,1700 01/07 0800 AC PO Oxycodone/ 2 TAB Q6P PRN 01/05 2315 AC 01/07 Acetaminophen PO 0212 Patient Medication 1 ED .STK-MED ONE 01/06 1356 CO Teaching ED 01/06 1357 Sitagliptin Phosphate 100 MG DAILY 01/06 2200 AC 01/06 PO 2300 Last 24 Hrs of Lab/Jose Results Last 24 Hrs of Labs/Mics: Laboratory Tests 01/06/17 0635: Anion Gap 8, Estimated GFR > 60, BUN/Creatinine Ratio 26.7 H, Triglycerides 118 , Cholesterol 144, LDL Cholesterol, Calc 69, HDL Cholesterol 52, Cholesterol/HDL Ratio 3, CBC w Diff NO MAN DIFF REQ, RBC 5.26, MCV 92.8, MCH 31.1 H, RDW 14.3, MPV 8.2, Gran % 57.7, Lymphocytes % 32.0, Monocytes % 7.3, Eosinophils % 2.6, Basophils % 0.4, Absolute Granulocytes 6.1, Absolute Lymphocytes 3.4, Absolute Monocytes 0.8 H, Absolute Eosinophils 0.3, Absolute Basophils 0, PUBS MCHC 33.5 Assessment/Plan Assessment: Mr. Haq is a 51-year-old man with a past history of hypertension, hyperlipidemia, coronary artery disease, history of DVT (prolonged), previous symptoms of neurological deficits is being evaluated for right-sided facial and upper and lower extremity numbness/pain in sensation 3 days. Neurological findings-CT head did not reveal any acute process. Admission diagnosis: #1 to rule out CVA #2 seizure #3 conversion disorder Below is the problem list and plan: #1 tingling, numbness sensation on the right side of the body-likely due to CVA. CT head was unremarkable for any acute intracranial bleed/infarct. Patient declines MRI, for further evaluation. Reports claustrophobia. TSH within normal limits. Seizure precaution. Neuro checks. Aspirin and high-dose statin. #2 hypertension-continue antihypertensives, at home dose. Start lisinopril 10 mg by mouth daily. Shown to have beneficial effects CVA. #3 diabetes-HbA1c 9.9. Insulin sliding scale low-dose. Start metformin and Januvia. #4 pain management-currently on oxycodone. Start gabapentin for neuropathic pain, has these symptoms could likely be from complications of diabetes. #5 DVT prophylaxis-mechanical. Problem List: 1. HLD (hyperlipidemia) 2. HTN (hypertension) 3. History of [place] (myocardial infarction) 4. Lacunar infarct, acute Pain Ratin Pain Location: Back pain Pain Goal: Pain 4 or less Pain Plan: Tylenol when necessary Tomorrow's Labs & Rationales: No labs necessary, patient discharged. TIESHA HAIDER MD 01/07/17 1209: Attending MD Review Statement Attending Statement Attending MD Statement: examined this patient, discuss w/resident/PA/[employer], agreed w/resident/PA/[employer], reviewed EMR data (avail) Attending Assessment/Plan: Symptoms improved today. Patient revealed he has a history of stroke s/p tPA several years ago. Patient was unable to tolerate MRI due to claustrophobia. Plan - Stable for discharge home - Discontinue ASA, start Plavix - Continue high dose statin - Start Metformin and Januvia per endocrine recommendations - Outpatient neurology and endocrine referrals - Continue home medications - Encourage weight loss - Diabetic diet education
--- NOTE | 2017-01-07 07:47 | PN- Diabetes ---
Assessment/Plan Assessment: This patient has type 2 diabetes mellitus associated with morbid obesity. He states he was not aware that he had diabetes prior to admission. The patient states he feels improved. His speech is normal and he has no further numbness The patient's blood sugar is not yet done this morning. He will begin metformin today along with Januvia. Plan: Suggest begin metformin and Januvia today as previously recommended. The patient needs to be instructed on a diabetic diet by the dietitian before he leaves the hospital. He must lose weight. As an outpatient we can use other medications such as a GLP-1 analogue. Subjective Subjective: Feels improved Review of Systems Constitutional: Denies: chills, fever. Cardiovascular: Denies: chest pain. Respiratory: Denies: cough, short of breath. Gastrointestinal: Denies: abdominal pain. Skin: Reports: no symptoms. Objective Last 24 Hrs of Vital Signs/I&O Vital Signs Date Time Temp Pulse Resp B/P Pulse O2 O2 Flow FiO2 Ox Delivery Rate 01/06 1640 98.4 76 20 126/84 95 Room Air 01/06 1048 Room Air 01/06 0804 97.9 88 20 152/82 93 Room Air Intake & Output 01/07 0800 01/07 0000 01/06 1600 Intake Total 600 Output Total Balance 600 Intake, Oral 600 Vital Signs Date Time Temp Pulse Resp B/P Pulse O2 O2 Flow FiO2 Ox Delivery Rate 01/06 1640 98.4 76 20 126/84 95 Room Air 01/06 1048 Room Air 01/06 0804 97.9 88 20 152/82 93 Room Air Intake & Output 01/07 0800 01/07 0000 01/06 1600 Intake Total 600 Output Total Balance 600 Intake, Oral 600 Physical Exam General Appearance: alert, awake, comfortable, obese Head: normal appearance Respiratory: normal breath sounds Cardiovascular: regular rate/rhythm Abdomen: normal bowel sounds, obese Extremities: normal inspection Skin: intact Current Medications: Current Medications Sig/Glenda Start time Last Medication Dose Route Stop Time Status Admin Acetaminophen 650 MG Q6P PRN 01/05 2315 AC 01/06 PO 0000 Aspirin Buffered 81 MG DAILY 01/06 1000 DC 01/06 PO 0915 Atorvastatin Calcium 80 MG 1700 01/07 1700 AC PO Atorvastatin Calcium 40 MG 1700 01/06 1700 DC 01/06 PO 1702 Clopidogrel Bisulfate 75 MG DAILY 01/07 1000 AC PO Enoxaparin Sodium 40 MG DAILY 01/06 1000 AC 01/06 SC 0916 Gabapentin 300 MG Q8 01/06 2200 AC 01/07 PO 0523 Ibuprofen 600 MG Q6P PRN 01/05 2315 AC PO Insulin Aspart 0 TIDAC 01/06 1200 AC 01/06 SC 1702 Lisinopril 10 MG DAILY 01/07 1000 AC PO Lorazepam 0.25 MG ONE ONE 01/06 1930 DC 01/06 PO 01/06 1931 2133 Metformin HCl 500 MG 0800,1700 01/07 0800 AC PO Oxycodone/ 2 TAB Q6P PRN 01/05 2315 AC 01/07 Acetaminophen PO 0212 Patient Medication 1 ED .STK-MED ONE 01/06 1356 DC Teaching ED 01/06 1357 Sitagliptin Phosphate 100 MG DAILY 01/060 AC 01/06 PO 2300
[2017-01-07] MEDS ORDERED: PLAVIX75 M1 PO (09:09)
[2017-01-07 09:13] VITALS: BP 128/84
[2017-01-07] MEDS ORDERED: LISINOPRIL10 M1 PO (09:13)
[2017-01-07] MEDS ORDERED: GABAPENTIN300 M2 PO (09:15)
[2017-01-07] MEDS ORDERED: JANUVIA100 M1 PO (09:16)
[2017-01-07] MEDS ORDERED: GLUCOPHAGE500 M1 PO (09:16)
--- NOTE | 2017-01-07 09:21 | Patient Discharge Instructions ---
Discharge Instructions General Discharge Information You were seen/treated for: Stroke Diabetes Watch for these problems: #1 chest pain, shortness of breath #2 weakness, tingling numbness sensation, slurred speech . Special Instructions: #1 please follow-up with your primary care doctor within 1-2 weeks of discharge. #2 please follow-up with your neurologist within 1-2 weeks of discharge. #3 please take your medications as prescribed. Diet Continue normal diet: No Recommended Diet: Diabetic Activity Full Activity/No Limits: Yes Activity Self Limited: No Acute Coronary Syndrome Inclusion Criteria At DC or during hospital stay patient has or had the following: ACS DIAGNOSIS No Discharge Core Measures Meds if any: Prescribed or Continued at Discharge Meds if any: NOT Prescribed or Continued at Discharge Congestive Heart Failure Inclusion Criteria At DC or during hospital stay patient has or had the following: CHF DIAGNOSIS No Discharge Core Measures Meds if any: Prescribed or Continued at Discharge Meds if any: NOT Prescribed or Continued at Discharge Cerebrovascular accident Inclusion Criteria At DC or during hospital stay patient has or had the following: CVA/TIA Diagnosis Yes Discharge Core Measures Meds if any: Prescribed or Continued at Discharge Antithrombotic No Statin (required if LDL =>70) No Anticoagulant No (pt started on antiplatelet) Meds if any: NOT Prescribed or Continued at Discharge Venous thromboembolism Inclusion Criteria VTE Diagnosis No VTE Type NONE VTE Confirmed by (Test) NONE Discharge Core Measures - Per Current guidelines, there needs to be overlap - treatment for the first 5 days of Warfarin therapy. - If discharged on Warfarin prior to 5 days of - overlap therapy, the patient will need to be - assessed for post discharge needs including - *Post discharge parental anticoagulation - *Warfarin and/or parental anticoagulation education - *Follow up date to check INR post discharge At least 5 days overlap therapy as Inpatient No Meds if any: Prescribed or Continued at Discharge Note: Overlap Therapy is Warfarin and Anticoagulant Meds if any: NOT Prescribed or Continued at Discharge
[2017-01-07 09:44] VITALS: BP 128/84
[2017-01-07] MEDS ORDERED: ATORVASTATIN CA80 M1 PO (11:29)
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
--- NOTE | 2017-01-07 13:49 | ECHOCARDIOGRAM REPORT ---
ERIKA KATE Age: 51 : 1965 Gender: M Exam Date: 01/06/2017 19:59 Exam Location: [address] Ht (in): 66 Wt (lb): 260 BSA: 2.40 BP: 152 / 82 Ordering Physician: LAILA ZUNIGA MD Referring Physician: LAILA ZUNIGA MD Technologist: Tiara Daniel [facility] Room Number: 179-02 Indications: TIA Rhythm: Sinus Technical Quality: Fair FINDINGS Left Ventricle Normal size left ventricle. Severe concentric left ventricular hypertrophy. No obvious regional wall motion abnormalities. Normal left ventricular ejection fraction visually estimated at >65%. Left ventricle not well visualized. "pseudonormal" filling pattern of the left ventricle for age (stage 2 diastolic dysfunction). Right Ventricle Normal right ventricular size and function. Right Atrium Normal right atrial size. Left Atrium Normal left atrial size. Mitral Valve Structurally normal mitral valve. Trace mitral regurgitation. Aortic Valve Structurally normal trileaflet aortic valve. No aortic valve stenosis or regurgitation. Tricuspid Valve Structurally normal tricuspid valve. No tricuspid regurgitation. Unable to estimate the right ventricular systolic pressure. Pulmonic Valve Pulmonic valve not well visualized. No pulmonic regurgitation. Pericardium No pericardial effusion. Great Vessels Normal size aortic root. CONCLUSIONS Normal size left ventricle. Severe concentric left ventricular hypertrophy. No obvious regional wall motion abnormalities. Normal left ventricular ejection fraction visually estimated at > 65%. "pseudonormal" filling pattern of the left ventricle for age (stage 2 diastolic dysfunction). Normal right ventricular size and function. Normal atrial size. Trace mitral regurgitation. Nico Allen M.D. (Electronically Signed) Final Date: 07 January 2017 13:48 MEASUREMENTS (Male / Female) Normal Values 2D ECHO LV Diastolic Diameter PLAX 4.6 cm 4.2 - 5.9 / 3.9 - 5.3 cm LV Systolic Diameter PLAX 2.6 cm 2.1 - 4.0 cm LV Fractional Shortening PLAX 43.5 % 25 - 46 % LV Ejection Fraction 2D Teich 74.7 % IVS Diastolic Thickness 2.0 cm LVPW Diastolic Thickness 1.8 cm LV Relative Wall Thickness 0.8 RV Internal Dim ED PLAX 2.8 cm 1.9 - 3.8 cm LVOT Diameter 2.2 cm Aortic Root Diameter 3.0 cm LA Systolic Diameter LX 3.8 cm 3.0 - 4.0 / 2.7 - 3.8 cm LA Volume 47.0 cm 18 - 58 / 22 - 52 cm Ascending Aorta Diameter 3.2 cm DOPPLER AV Peak Velocity 159.0 cm/s AV Peak Gradient 10.1 mmHg AV Mean Velocity 115.0 cm/s AV Mean Gradient 6.0 mmHg AV Velocity Time Integral 33.9 cm LVOT Peak Velocity 125.0 cm/s LVOT Peak Gradient 6.3 mmHg LVOT Mean Velocity 77.8 cm/s LVOT Mean Gradient 3.0 mmHg LVOT Velocity Time Integral 25.7 cm LVOT Stroke Volume 97.7 cm AV Area Cont Eq vti 2.9 cm AV Area Cont Eq pk 3.0 cm MV Peak Velocity 99.2 cm/s MV Peak Gradient 3.9 mmHg MV Mean Velocity 69.1 cm/s MV Mean Gradient 2.0 mmHg Mitral E Point Velocity 107.0 cm/s Mitral A Point Velocity 105.0 cm/s Mitral E to A Ratio 1.0 MV PHT Velocity 109.0 cm/s MV Deceleration Charles Mix 469.0 cm/s MV Pressure Half Time 69.7 ms MV Area PHT 3.2 cm MV Deceleration Time 224.0 ms PV Peak Velocity 100.0 cm/s PV Peak Gradient 4.0 mmHg PV Mean Velocity 65.6 cm/s PV Mean Gradient 2.0 mmHg PV Velocity Time Integral 16.9 cm LV E' Lateral Velocity 8.9 cm/s Mitral E to LV E' Lateral Ratio 12.0 LV E' Septal Velocity 6.5 cm/s Mitral E to LV E' Septal Ratio 16.4
--- NOTE | 2017-01-07 16:13 | Discharge Summary ---
Hospital Course Allergies: Coded Allergies: latex (BLISTERS 09/14/16) Discharge Instructions Medications at Discharge Discharge Medications: Stop taking the following medications: Cholesterol Control,High & Low (Accutrend Cholesterol Control) 1 EACH EACH Ibuprofen (Ibuprofen) 800 MG TABLET ORAL THREE TIMES DAILY Qty = 30 Atorvastatin Calcium (Atorvastatin Calcium) 40 MG TABLET ORAL DAILY Days = 30 Continue taking these medications: Metoprolol Succ XL (Toprol XL) 25 MG TAB 1 Tablet ORAL DAILY Instructions: PT UNSURE OF DOSE Comments: NOT GIVEN IN HOSPITAL Ondansetron HCl (Zofran) 4 MG TABLET 1 Tablet ORAL EVERY SIX HOURS Qty = 20 Comments: NOT GIVEN IN HOSPITAL Start taking the following new medications: Gabapentin (Gabapentin) 300 MG CAPSULE 300 Milligram ORAL EVERY 8 HOURS Qty = 30 No Refills Comments: Last Taken: 01/07/17 Time: 5:30 AM Metformin Hydochloride (Glucophage) 500 MG TABLET 500 Milligram ORAL 0800,1700 Qty = 30 Refills = 1 Comments: Last Taken: 01/07/17 Time: 8:30 AM Sitagliptin Phosphate (Januvia) 100 MG TABLET 100 Milligram ORAL DAILY Qty = 30 No Refills Comments: Last Taken: 01/07/17 Time: 9:45 AM Atorvastatin Calcium (Atorvastatin Calcium) 80 MG TABLET 80 Milligram ORAL 5 PM Qty = 30 No Refills Comments: Last Taken: 01/06/17 Time: 5:00 PM 40 MG GIVEN Clopidogrel Bisulfate (Plavix) 75 MG TABLET 1 Tablet ORAL DAILY Qty = 30 No Refills Comments: Last Taken: 01/07/17 Time: 9:45 AM Lisinopril (Lisinopril) 10 MG TABLET 1 Tablet ORAL DAILY Qty = 30 No Refills Comments: Last Taken: 01/07/17 Time: 9:45 AM
--- NOTE | 2017-01-13 18:54 | Discharge Summary ---
Visit Information Visit Dates Admission Date: 01/05/17 Discharge Date: 01/07/17 Hospital Course Course Attending Physician: TIESHA HAIDER MD Primary Care Physician: HAVEN CATALAN,DAISY Fowler Hospital Course: Mr. Haq is a 51-year-old man with multiple cardiovascuar risk factors , hypertension, hyperlipidemia, smoking, and history of coronary artery disease( catheterization w/ no stents ), history of DVT (provoked), previous symptoms of neurological deficits( stroke requring tpa at [facility]), was evaluated for right-sided facial and upper and lower extremity numbness/pain in sensation 3 days prior to admission. At the time of admission, vitals-temperature 97.7, pulse rate 84, respiration 16 , blood pressure 155/94, pulse ox 99% on room air. Findings indicated WBC 13.1, hemoglobin 15.5, platelets 297, sodium 132, potassium 4.3, BUN 15, serum creatinine 0.6. Alkaline phosphatase 143, with normal AST and ALT. Cardiac enzymes-negative. HbA1c 9.9. No telemetry events were noted. Neurological findings-CT head did not reveal any acute process. Differential diagnosis: #1 CVA #2 New onset Diabetes Below is the problem list and plan: #1 tingling, numbness sensation on the right side of the body-likely due to CVA. CT head was unremarkable for any acute intracranial bleed/infarct. Patient declined MRI, for further neurological evaluation. Reported claustrophobia. TSH within normal limits. Unsure of the previous post-stroke medication compliance, changed aspirin to plavix, changed to a high dose statin, and received lisionopril( studies show synergistic beneficial effects in the context of stroke, as per the neurologist ). Discussed about post-stroke care. Dr Cassidy was consuted for advice. #2 hypertension-continued on antihypertensives, at home dose. BP was adequatedly controlled. #3 diabetes-HbA1c 9.9. Discussed about weight loss, adherence to medication, lifestyle changes that would affect the group home complicaitons of diabetes. Discharged the pt on Metformin and sitagliptin. Dr. Reynolds was consuted for advice. #4 pain management-Started the pt on gabapentin for neuropathic pain, has these symptoms could likely be from complications of diabetes. Allergies: Coded Allergies: latex (BLISTERS 09/14/16) Pertinent Lab Results: CT head: There is no evidence of acute intracranial hemorrhage or territorial infarction. No abnormal mass effect or midline shift is seen. Spears to white matter differentiation is well preserved. No extra-axial fluid collections are identified. The ventricles are normal in size. There is no abnormal attenuation within the brain parenchyma. The osseous structures and soft tissues are normal. The mastoid air cells and visualized portions of the paranasal sinuses are well aerated. IMPRESSION: No acute intracranial pathology. US - [id number] DOPPLER There is a small amount of calcified plaque present in the left internal carotid artery with normal velocities consistent with a minimal 0-49% stenosis. The right side is normal with no plaque seen. ECHOCARDIOGRAM Normal size left ventricle. Severe concentric left ventricular hypertrophy. No obvious regional wall motion abnormalities. Normal left ventricular ejection fraction visually estimated at > 65%. "pseudonormal" filling pattern of the left ventricle for age (stage 2 diastolic dysfunction). Normal right ventricular size and function. Normal atrial size. Trace mitral regurgitation. Disposition Summary Disposition Principal Diagnosis: stroke, cva Additional Diagnosis: New onset diabetes Discharge Disposition: home or self care Discharge Instructions General Discharge Information Code Status: Full Code Patient's Diet: diabetic diet Patient's Activity: as tolerated Follow-Up Instructions/Appts: #1 please follow-up with your primary care doctor within 1-2 weeks of discharge. #2 please follow-up with your neurologist within 1-2 weeks of discharge. #3 please take your medications as prescribed. Medications at Discharge Discharge Medications: Stop taking the following medications: Cholesterol Control,High & Low (Accutrend Cholesterol Control) 1 EACH EACH Ibuprofen (Ibuprofen) 800 MG TABLET ORAL THREE TIMES DAILY Qty = 30 Atorvastatin Calcium (Atorvastatin Calcium) 40 MG TABLET ORAL DAILY Days = 30 Continue taking these medications: Metoprolol Succ XL (Toprol XL) 25 MG TAB 1 Tablet ORAL DAILY Instructions: PT UNSURE OF DOSE Comments: NOT GIVEN IN HOSPITAL Ondansetron HCl (Zofran) 4 MG TABLET 1 Tablet ORAL EVERY SIX HOURS Qty = 20 Comments: NOT GIVEN IN HOSPITAL Start taking the following new medications: Gabapentin (Gabapentin) 300 MG CAPSULE 300 Milligram ORAL EVERY 8 HOURS Qty = 30 No Refills Comments: Last Taken: 01/07/17 Time: 5:30 AM Metformin Hydochloride (Glucophage) 500 MG TABLET 500 Milligram ORAL 0800,1700 Qty = 30 Refills = 1 Comments: Last Taken: 01/07/17 Time: 8:30 AM Sitagliptin Phosphate (Januvia) 100 MG TABLET 100 Milligram ORAL DAILY Qty = 30 No Refills Comments: Last Taken: 01/07/17 Time: 9:45 AM Atorvastatin Calcium (Atorvastatin Calcium) 80 MG TABLET 80 Milligram ORAL 5 PM Qty = 30 No Refills Comments: Last Taken: 01/06/17 Time: 5:00 PM 40 MG GIVEN Clopidogrel Bisulfate (Plavix) 75 MG TABLET 1 Tablet ORAL DAILY Qty = 30 No Refills Comments: Last Taken: 01/07/17 Time: 9:45 AM Lisinopril (Lisinopril) 10 MG TABLET 1 Tablet ORAL DAILY Qty = 30 No Refills Comments: Last Taken: 01/07/17 Time: 9:45 AM Copies To: HAVEN CATALAN,DAISY Barrett MD Review Statement Documenting Attending: TIESHA HAIDER MD
== END 2017-01-07 12:55 ==
LOC: ENRESERVTM → ENRESERVDT → ERH 17:41 → ERHI 21:54 → 1NO 21:54 → ENPENDDIS 21:54 → 1NO 01-06 01:28
PROVIDERS: Internal Medicine Hematology & Oncology; Physician Assistant Medical; ADMIT Internal Medicine
DX: I63.9 Cerebral infarction, unspecified (principal); I10 Essential (primary) hypertension; E78.5 Hyperlipidemia, unspecified; I25.10 Atherosclerotic heart disease of native coronary artery without angina pectoris; Z86.718 Personal history of other venous thrombosis and embolism; I25.2 Old myocardial infarction; E66.01 Morbid (severe) obesity due to excess calories; Z86.73 Personal history of transient ischemic attack (TIA), and cerebral infarction without residual deficits; F17.200 Nicotine dependence, unspecified, uncomplicated; E11.65 Type 2 diabetes mellitus with hyperglycemia
CPT/HCPCS: 36415; 82436; 93005; 93010; 93306; 96372; 96374; 99232; G0378; J1650; J3490

== ENCOUNTER 2017-02-16 12:33 | Emergency (ER) | payer OTHER ==
[~2017-02-16] VITALS: Ht 167.6 cm; Wt 120.2 kg
[~2017-02-16 12:33] MED LIST changes: +ATORVASTATIN CA40 M1 PO; +ATORVASTATIN CA80 M1 PO; +GABAPENTIN300 M2 PO; +GLUCOPHAGE500 M1 PO; +JANUVIA100 M1 PO; +LISINOPRIL10 M1 PO; +PLAVIX75 M1 PO
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
[2017-02-16 13:36] LABS: ABSOLUTE BASOPHIL COUNT 0 /CUMM (0.0-0.2); ABSOLUTE EOSINOPHIL COUNT 0 /CUMM (0.0-0.7); ABSOLUTE GRANULOCYTE CT 11.4 /CUMM (1.4-6.5); ABSOLUTE LYMPH COUNT 1.2 /CUMM (1.2-3.4); ABSOLUTE MONOCYTE COUNT 0.1 /CUMM (0.10-0.60); BASOPHIL % 0 % (0.0-2.0); EOSINOPHIL % 0.1 % (0-5); HEMATOCRIT 44.7 % (42-52); MEAN CORPUSCULAR HGB 31.4 PG (27.0-31.0); MEAN CORPUSCULAR HGB CONC 34.5 G/DL (33.0-37.0); MEAN PLATELET VOLUME 8.1 FL (7.4-10.4); PLATELET COUNT 303 /CUMM (130-400); RBC DISTRIBUTION WIDTH 13.9 % (11.5-14.5); RED BLOOD CELL CT 4.91 /CUMM (4.70-6.10); WHITE BLOOD CELL COUNT 12.7 /CUMM (4.8-10.8)
[2017-02-16 13:42] LABS: GRANULOCYTE % 89.3 % (42.2-75.2)
--- NOTE | 2017-02-16 14:06 | RADIOLOGY REPORT ---
EXAMINATION: CHEST 2 VIEWS CLINICAL INFORMATION: Cough, weakness. COMPARISON: 11/25/2016. TECHNIQUE: PA and lateral views of the chest were obtained. FINDINGS: The cardiac silhouette is not enlarged. The mediastinal and hilar contours are unremarkable. There are neither pleural effusions nor pneumothoraces. There are no consolidations. The osseous structures are unremarkable. IMPRESSION: No evidence for acute disease.
--- NOTE | 2017-02-16 14:08 | CT SCAN REPORT ---
EXAMINATION: CT HEAD WITHOUT CONTRAST CLINICAL INFORMATION: Right-sided numbness and weakness. COMPARISON: 01/05/2017. TECHNIQUE: Contiguous axial images of the brain were obtained without IV contrast. DLP: 620 mGy-cm. FINDINGS: There are no pathologic extra-axial fluid collections. The lateral, third, fourth ventricles are nondilated and concordant with the appearance of the sulci. There is no evidence for acute intraparenchymal hemorrhage or infarct. There is neither mass nor mass effect. There is no shift of midline structures. The paranasal sinuses and mastoid air cells are clear. There are no osseous lesions. IMPRESSION: No evidence for acute intracranial injury.
[2017-02-16] MEDS ORDERED: PROAIR HFA8.5 GM INH (14:51)
[2017-02-16] MEDS ORDERED: ASPIRIN325 M2 PO (14:51)
[2017-02-16] MEDS ORDERED: ZITHROMAX250 M2 PO (14:51)
[2017-02-16] MEDS ORDERED: TESSALON PERLE100 M1 PO (14:51)
[2017-02-16 15:11] VITALS: BP 162/90
== END 2017-02-16 15:12 ==
LOC: ERH 12:33
PROVIDERS: Emergency Medicine
DX: G45.9 Transient cerebral ischemic attack, unspecified (principal); J40 Bronchitis, not specified as acute or chronic; F17.210 Nicotine dependence, cigarettes, uncomplicated
CPT/HCPCS: 1263; 93005; 93010; 96374; J0131

== ENCOUNTER 2017-03-01 07:59 | Emergency (ER) | payer OTHER ==
[~2017-03-01] VITALS: Ht 167.6 cm; Wt 98.0 kg
[~2017-03-01 07:59] MED LIST changes: +ASPIRIN325 M2 PO; +PROAIR HFA8.5 GM INH; +ZITHROMAX250 M2 PO
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
[2017-03-01 08:23] LABS: ABSOLUTE BASOPHIL COUNT 0.1 /CUMM (0.0-0.2); ABSOLUTE EOSINOPHIL COUNT 0.2 /CUMM (0.0-0.7); ABSOLUTE GRANULOCYTE CT 6.8 /CUMM (1.4-6.5); ABSOLUTE LYMPH COUNT 2.6 /CUMM (1.2-3.4); ABSOLUTE MONOCYTE COUNT 0.6 /CUMM (0.10-0.60); BASOPHIL % 0.6 % (0.0-2.0); EOSINOPHIL % 1.9 % (0-5); GRANULOCYTE % 66.2 % (42.2-75.2); HEMATOCRIT 44.2 % (42-52); MEAN CORPUSCULAR HGB 31.2 PG (27.0-31.0); MEAN CORPUSCULAR HGB CONC 34.6 G/DL (33.0-37.0); MEAN CORPUSCULAR VOLUME 90.2 FL (80.0-94.0); MEAN PLATELET VOLUME 8.6 FL (7.4-10.4); PLATELET COUNT 266 /CUMM (130-400); WHITE BLOOD CELL COUNT 10.3 /CUMM (4.8-10.8)
[2017-03-01] MEDS ORDERED: LITE COAT ASPI325 MG PO (08:36)
[2017-03-01] MEDS ORDERED: ATORVASTATIN CA40 M1 PO (08:37)
[2017-03-01] MEDS ORDERED: AZOR 5-40 MG T1 EACH PO (08:38)
--- NOTE | 2017-03-01 08:45 | RADIOLOGY REPORT ---
EXAMINATION: XR PORTABLE CHEST CLINICAL INFORMATION: 51-year-old male patient with wheezing and chest pain. COMPARISON: PA and lateral erect views of the chest on 02/16/2017. (No acute). TECHNIQUE: Portable AP semierect view of the chest was obtained. FINDINGS: The heart remains normal in size. The lungs are clear. Hazy opacity in the lower left hemithorax is attributed to overlying soft tissues. There is no focal air trapping. Pulmonary vascularity is normal. IMPRESSION: No evidence of pneumonia or edema.
[2017-03-01 08:53] LABS: PT 9.4 SEC (9.4-12.5); PTT 30 SEC (25-37)
[2017-03-01 12:37] VITALS: BP 168/82
[2017-03-01] MEDS ORDERED: PERCOCET 5-3251 EACH PO (12:46)
== END 2017-03-01 12:57 ==
LOC: ERH 07:59
PROVIDERS: Emergency Medicine
DX: R07.9 Chest pain, unspecified (principal); I10 Essential (primary) hypertension; Z72.0 Tobacco use
CPT/HCPCS: 93005; 93010; 96374; 96375; J0131

== ENCOUNTER 2017-03-10 19:58 | Emergency (ER) | payer OTHER ==
[~2017-03-10 19:58] MED LIST changes: +AZOR 5-40 MG T1 EACH PO; +LITE COAT ASPI325 MG PO
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
--- NOTE | 2017-03-10 21:55 | RADIOLOGY REPORT ---
EXAMINATION: XR HAND, RIGHT CLINICAL INFORMATION: Pain. Sprain. COMPARISON: None TECHNIQUE: AP, lateral, and oblique views of the right hand. FINDINGS: No fracture. No dislocation. No acute abnormality of the bone or joint. Joint spaces are maintained. No significant arthropathy. IMPRESSION: Normal right hand.
[2017-03-10] MEDS ORDERED: PERCOCET 5-3251 EACH PO (22:02)
[2017-03-10 22:21] VITALS: BP 128/76
== END 2017-03-10 22:23 ==
LOC: ERH 19:58
DX: S60.021A Contusion of right index finger without damage to nail, initial encounter (principal); S60.031A Contusion of right middle finger without damage to nail, initial encounter; S60.041A Contusion of right ring finger without damage to nail, initial encounter; S60.051A Contusion of right little finger without damage to nail, initial encounter; W23.0XXA Caught, crushed, jammed, or pinched between moving objects, initial encounter
CPT/HCPCS: 73130-RT

== ENCOUNTER 2017-03-16 20:24 | Observation (INO) | payer OTHER ==
[~2017-03-16] VITALS: Ht 167.6 cm; Wt 117.9 kg
--- NOTE | 2017-03-16 20:42 | NUR ---
ATTEMPTED TO DO EKG. PT NOT IN WAITING ROOM
--- NOTE | 2017-03-16 20:54 | NUR ---
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 REPORTS HX MS W/ CARDIAC CATH, NO STENTS. PATIENT REPORTS PAIN 05/19 1/ INTERMITTENT SOB, SPEECH CLEAR. PATIENT REPORTING PAIN TO R SIDE HEAD, "MY R SIDE HEAD FEELS NUMB." NEUROS INTACT, ALERT AND ORIENTED X3.
[2017-03-16 21:04] LABS: ABSOLUTE BASOPHIL COUNT 0 /CUMM (0.0-0.2); ABSOLUTE EOSINOPHIL COUNT 0.1 /CUMM (0.0-0.7); ABSOLUTE GRANULOCYTE CT 9.2 /CUMM (1.4-6.5); ABSOLUTE LYMPH COUNT 1.6 /CUMM (1.2-3.4); ABSOLUTE MONOCYTE COUNT 0.7 /CUMM (0.10-0.60); BASOPHIL % 0.1 % (0.0-2.0); EOSINOPHIL % 0.5 % (0-5); GRANULOCYTE % 79.1 % (42.2-75.2); HEMATOCRIT 43.6 % (42-52); MEAN CORPUSCULAR HGB 30.9 PG (27.0-31.0); MEAN CORPUSCULAR HGB CONC 33.9 G/DL (33.0-37.0); MEAN CORPUSCULAR VOLUME 91.2 FL (80.0-94.0); PLATELET COUNT 269 /CUMM (130-400); RBC DISTRIBUTION WIDTH 14.4 % (11.5-14.5); RED BLOOD CELL CT 4.78 /CUMM (4.70-6.10); WHITE BLOOD CELL COUNT 11.6 /CUMM (4.8-10.8)
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
[2017-03-16] MEDS ORDERED: PROAIR HFA8.5 GM INH (22:41)
--- NOTE | 2017-03-16 23:07 | RADIOLOGY REPORT ---
EXAMINATION: XR PORTABLE CHEST CLINICAL INFORMATION: Chest pain. COMPARISON: Portable chest x-ray 03/01/2017. TECHNIQUE: Portable frontal view of the chest was obtained. FINDINGS: Significantly limited exam secondary to patient body habitus and low lung volumes. There are subtle patchy infiltrates within the left lung base, which are entirely nonspecific and may reflect atelectasis although superimposed infection cannot be excluded. The right lung appears to be grossly clear. Cardiomediastinal contours are stable. No pleural effusions or pneumothoraces are identified. Soft tissues appear unremarkable. No acute osseous abnormality. IMPRESSION: Significantly limited exam secondary to patient body habitus and low lung volumes. Subtle patchy airspace opacities within the left lung base. This is entirely nonspecific and may reflect atelectasis given low lung volumes. Superimposed infection or aspiration pneumonitis cannot be excluded in the appropriate clinical setting.
--- NOTE | 2017-03-16 23:12 | CT SCAN REPORT ---
EXAMINATION: CT HEAD WITHOUT CONTRAST CLINICAL INFORMATION: Right-sided weakness, now resolved. COMPARISON: Noncontrast head CT 02/16/2017. TECHNIQUE: Contiguous axial imaging was performed from the skull base to vertex without intravenous administration of contrast. DLP: 622 mGy-cm FINDINGS: No acute intracranial abnormality. No acute intracranial hemorrhage, mass or mass effect or abnormal extra-axial fluid collections. The density within the dural venous sinuses is within normal limits. The ventricles are normal in size, without hydrocephalus. There are no focal areas of hypoattenuation within a vascular distribution to suggest acute transcortical ischemia. The basilar cisterns are patent. No acute calvarial abnormality is identified. Soft tissues appear unremarkable. The imaged paranasal sinuses and mastoid air cells are well aerated. IMPRESSION: No acute intracranial pathology.
--- NOTE | 2017-03-16 23:54 | NUR ---
CONT TO COUGH, NONSTOP, WHICH INCREASES PAIN IN CHEST, NO SPUTUM PRODUCTION, PLACED ON MONITOR, SINUS RATE 70'S. ALSO SIGNIFICANT NASAL CONGESTION, REQUESTS FOOD AND NARCOTIC PAIN RELIEVER. PT PER DR. DHILLON AWAITS HOUSESTAFF.
--- NOTE | 2017-03-17 01:30 | NUR ---
PT HAD BEEN SETTLED TO SLEEP, 2ND GROUP OF HOUSESTAFF IN TO SEE PT. PT COUGH MUCH LESS SINCE RESP RX. SLEEPING IN SHORT NAPS MONITOR SINUS NO ECTOPY
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
--- NOTE | 2017-03-17 02:45 | NUR ---
LOU PAGED 072 PT REQUESTS PERCOCET FOR CHRONIC BACK PAIN
--- NOTE | 2017-03-17 03:44 | NUR ---
PATIENT SLEEPING, HR: 74 ON MONITOR, NSR W/ NO ECTOPY. REGULAR RESPIRATIONS NOTED. AWAITING AM LABS/ EKG.
--- NOTE | 2017-03-17 04:58 | NUR ---
AWOKE PATIENT FROM SLEEP TO OBTAIN VS, AM LABS AND EKG. PATIENT DENIES ANY CP/ SOB. NS INITIATED AT 75ML/HR PER EMAR. TOLERATING WELL. FINGERSTICK:216.
--- NOTE | 2017-03-17 05:16 | NUR ---
BLOODWORK OBTAINED AND SENT TO LAB (LAV, SST X2, BLUE). PATIENT REQUESTING FOOD; SETSWANA TOAST AND HAM OMLETTE. PATIENT INFORMED OF DIET ORDER FOR DIABETIC DIET, REQUESTING DEBBY CRACKERS AND COFFEE AT THIS TIME. PATIENT ALSO REPORTS "I FEEL LIKE I NEED ANOTHER PERCOCET FOR MY BACK PAIN. CAN YOU CALL THE DOCTORS AND ASK THEM FOR ONE?"
[2017-03-17 05:29] LABS: ABSOLUTE BASOPHIL COUNT 0 /CUMM (0.0-0.2); ABSOLUTE EOSINOPHIL COUNT 0 /CUMM (0.0-0.7); ABSOLUTE GRANULOCYTE CT 7.9 /CUMM (1.4-6.5); ABSOLUTE LYMPH COUNT 1.7 /CUMM (1.2-3.4); ABSOLUTE MONOCYTE COUNT 0.6 /CUMM (0.10-0.60); BASOPHIL % 0.3 % (0.0-2.0); EOSINOPHIL % 0.1 % (0-5); GRANULOCYTE % 77.3 % (42.2-75.2); HEMATOCRIT 42.5 % (42-52); MEAN CORPUSCULAR HGB 30.9 PG (27.0-31.0); MEAN CORPUSCULAR HGB CONC 33.4 G/DL (33.0-37.0); MEAN CORPUSCULAR VOLUME 92.4 FL (80.0-94.0); MEAN PLATELET VOLUME 8.1 FL (7.4-10.4); PLATELET COUNT 268 /CUMM (130-400); RBC DISTRIBUTION WIDTH 14.3 % (11.5-14.5); WHITE BLOOD CELL COUNT 10.2 /CUMM (4.8-10.8)
--- NOTE | 2017-03-17 06:00 | NUR ---
AWOKE PATIENT FROM SLEEP TO PROVIDE COFFEE AND DEBBY CRACKERS PER REQUEST, PATIENT REQUESTING "I NEED PERCOCET FOR MY BACK PAIN I THINK, I KNOW I'LL BE GETTING TESTS AND STUFF TODAY AND IT WILL TAKE ALOT OF ME." PATIENT NOTED W/ EXERTIONAL SOB, OFFERED PRN BREATHING TX AND PATIENT DECLINES. PATIENT STATES "I'LL TELL YOU WHEN I FEEL LIKE I NEED THE BREATHING TX."
--- NOTE | 2017-03-17 06:10 | NUR ---
PATIENT SLEEPING AT THIS TIME, SNORING. PATIENT COFFEE AND DEBBY CRACKERS PROVIDED AND PLACED ON BEDSIDE TABLE IN REACH. REMAINS ON SOLAR SYSTEM DESIGNER, NSR.
--- NOTE | 2017-03-17 06:15 | NUR ---
IPOC CONTINUED AND UTD.
--- NOTE | 2017-03-17 06:40 | NUR ---
PATIENT NOW AWAKE, PRESSED CALL AYALA. THIS RN TO BEDSIDE, PATIENT NOW YELLING AT RN STATING "I JUST CALLED MY DOCTOR AT HOME AND TOLD HIM HOW I AM BEING MISTREATED HERE AND HAVEN'T EATEN IN 2 DAYS AND THAT I HAVE BEEN HERE ON THIS ER STRETCHER FOR 3 DAYS NOW. I TOLD HIM THAT YOU GUYS HAVN'T GIVEN ME ANYTHING FOR PAIN IN 2 DAYS." PATIENT REMOVED SELF FROM ASSEMBLER ARRANGER, BP CUFF, O2 PROBE, AND REMOVED HIS OWN IV TUBING, THREW AT NURSING STAFF. PATIENT THEN WALKED OUT OF ROOM AND INTO BATHROOM REQUESTING TO SIGN OUT AMA. PATIENT INFORMED HAS BEEN IN A HOSPITAL BED OVERNIGHT, NOT AN ER STRETCHER. ALSO INFORMED SIGNED IN TO ER LAST NIGHT, HAS NOT BEEN HERE FOR 3 DAYS. PATIENT INFORMED THAT HE WAS PROVIDED COFFEE AND DEBBY CRACKERS REQUESTED AND INFORMED WAITING FOR BREAKFAST TRAY THAT WAS ORDERED FOR PATIENT AT 0600. PATIENT INFORMED WAS MEDICATED W/ PERCOCET LAST NIGHT AND MEDICATED W/ GABAPENTIN THIS AM. HOUSE STAFF PAGED TO COME TO BEDSIDE AT THIS TIME AND SPEAK W/ PATIENT, AWARE OF CURRENT AGITATION AND CONDITION WELL REQUEST TO SIGN OUT AMA.
--- NOTE | 2017-03-17 07:01 | NUR ---
HOUSE STAFF SPOKE W/ PATIENT AND ORDERED PERCOCET PER PATIENT DEMANDS. PATIENT MEDICATED W/ PERCOCET PER EMAR. TOLERATED WELL. PATIENT NOW APOLOGETIC TO RN S/P MED ADMINISTRATION.
--- NOTE | 2017-03-17 07:14 | NUR ---
PT READY FOR MRI, PT REPORTS HE TOLD HOUSESTAFF HE IS CLAUSTROPHBIC AND NEEDS SOMETHING, BEEPER 072 PAGED. RETURNED CALL WILL PLACE ORDER.
--- NOTE | 2017-03-17 07:28 | NUR ---
TO MRI VIA WHEEL CHAIR.
--- NOTE | 2017-03-17 08:05 | NUR ---
PT RETURNED FROM MRI, UNABLE OT COMPLETE TEST.
--- NOTE | 2017-03-17 08:17 | NUR ---
DR. NOLAN CALLED ABOUT MRI, XOCHITL RESIDENT RETURNED HIS PAGE AWARE OF SAME.
--- NOTE | 2017-03-17 09:54 | NUR ---
DR. NAVARRO AND TEAM IN TO REASSESSPT.
--- NOTE | 2017-03-17 10:13 | PN- Student ---
Subjective Subjective: Source: Patient, Self CC: "I blacked out." HPI Pt is a 51 yo male current smoker with hypertension, hyperlipidemia, DM, history of CAD, DVT, and head trauma as an adolescent requiring 2 mo hospitalization, who presents to the ER with two episodes of "blacking out." Pt reports that on Tuesday he was in the kitchen when he started shaking all over and lost consciousness. His son rushed over and also noticed that his eyes rolled back. When the pt regained consciousness he experienced some confusion and retrograde amnesia. He denies any preceding aura or urinary/bowel incontinence. Yesterday, the pt reports another episode of "blacking out" as he was walking down the stairs to grab dinner. He states that he fell down and "blacked out" for an undetermined amount of time and was confused once he regained consciousness. He also reports feeling substernal chest pain, but denies shortness of breath, nausea, or palpitations. His family found him down and was able to help him to the hospital. Pt was recently seen at [facility] 2 mo ago for complaints of right-sided upper and lower extremity weakness, numbness, and pain which was thought to be due to a left hemispheric stroke. He was also diagnosed with DM at the time and reports being compliant with his hypoglycemic medications. Today he was premedicated for MRI but could not complete imaging due to claustrophobia. Family History Mother - myocardial infarction Sister - stroke Social History Pt reports sleeping well and denies nighttime awakenings, snoring, or morning headaches. He reports walking everyday for exercise and eating home-cooked meals. He smokes 3/4 ppd and drinks rarely. Review of Systems Constitutional: Denies fever, chills, unintentional weight loss/gain, or diaphoresis HEENT: Reports history of head trauma. Reports URI symptoms for the past week including nasal congestion and sore throat. Denies changes in vision or hearing. Neuro: Reports headache, loss of consciousness, and poor memory. Denies dizziness. Cardiac: Reports substernal chest pain with his second episode of loss of consciousness. Denies palpitations, lower extremity swelling, orthopnea, or shortness of breath. Pulm: Reports productive cough with white sputum. Denies wheezing or pleuritic pain. GI: Reports nausea with oral hypoglycemic medication. Denies vomitting, diarrhea , or other changes in bowel movements. MSK: Reports lower back pain. Denies joint pain or muscle ache. Objective Objective: Current Medications Sig/Glenda Start time Last Medication Dose Route Stop Time Status Admin Albuterol Sulfate 2 PUF Q4-6 PRN PRN 03/17 1000 AC INH Albuterol Sulfate 3 ML ONCE ONE 03/16 2345 DC 03/17 INH 03/16 2346 0019 Amlodipine Besylate 5 MG DAILY 03/17 1000 AC 03/17 PO 1032 Aspirin 81 MG DAILY 03/17 1000 AC 03/17 PO 1032 Aspirin 325 MG DAILY PRN 03/17 0245 DC PO Aspirin 0 .STK-MED ONE 03/16 2231 DC PO Aspirin 325 MG ONCE ONE 03/16 2230 DC 03/16 PO 03/16 2231 2228 Atorvastatin Calcium 40 MG DAILY 03/17 1000 AC 03/17 PO 1032 Clopidogrel Bisulfate 75 MG DAILY 03/17 1000 AC 03/17 PO 1032 Cyclobenzaprine HCl 0 .STK-MED ONE 03/17 1405 DC PO Cyclobenzaprine HCl 5 MG TID 03/17 1133 AC 03/17 PO 1357 Diazepam 2 MG ONCE ONE 03/17 0730 DC / PO 03/17 0731 0719 Diazepam 0 .STK-MED ONE 03/17 0723 DC PO Diphenhydramine HCl 25 MG Q6P PRN 03/17 0245 AC PO Enoxaparin Sodium 40 MG DAILY 03/17 1000 AC 03/17 SC 1032 Gabapentin 0 .STK-MED ONE 03/17 0608 DC PO Gabapentin 300 MG Q8 03/17 0600 AC 03/17 PO 1405 Guaifenesin/ 10 ML Q6P PRN 03/17 0245 AC Dextromethorphan PO Ibuprofen 600 MG Q6P PRN 03/17 0245 AC PO Insulin Aspart 0 TIDAC 03/17 0800 AC 03/17 SC 0808 Ipratropium [place] 2.5 ML ONCE ONE 03/16 2345 DC 03/17 INH 03/16 2346 0018 Ketorolac 30 MG .[NOW]] PRN 03/17 1100 AC 03/17 Tromethamine IV 1058 Ketorolac 0 .STK-MED ONE 03/17 1100 DC Tromethamine .ROUTE Ketorolac 15 MG BID PRN 03/17 1000 DC Tromethamine IV Lisinopril 10 MG DAILY 03/17 1000 CAN PO Losartan Potassium 50 MG DAILY 03/17 1000 AC 03/17 PO 1032 Metformin HCl 500 MG 0800,1700 08 0800 CAN PO Metoprolol Succinate 25 MG DAILY 03/17 1000 AC 03/17 PO 1032 Oxycodone/ 1 TAB ONCE ONE 03/17 0700 DC 03/17 Acetaminophen PO 03/17 0701 0701 Oxycodone/ 0 .STK-MED ONE 03/17 0700 DC Acetaminophen PO Oxycodone/ 1 TAB ONCE ONE 03/17 0300 DC 03/17 Acetaminophen PO 03/17 0301 0250 Oxycodone/ 0 .STK-MED ONE 03/17 0253 DC Acetaminophen PO Sitagliptin Phosphate 100 MG DAILY 03/17 1000 CAN PO Sodium Chloride 1,000 ML Q13H 03/17 0245 AC 03/17 IV 03/17 1544 0458 Vital Signs Date Time Temp Pulse Resp B/P B/P Pulse O2 O2 Flow FiO2 Mean Ox Delivery Rate 03/17 1425 98.4 84 20 151/94 95 Room Air 03/17 1034 97.7 83 20 160/100 97 Room Air 03/17 1032 97.7 83 20 160/100 03/17 1032 97.7 83 20 160/100 / 1032 97.7 83 20 160/100 / 0508 152/98 03/17 0503 97.4 70 18 167/106 92 Room Air /08 0019 94 03/16 2057 95.5 85 18 162/108 94 Room Air Last 24 Hours I&Os 03/17 1600 08 0800 03/17 0000 Intake Total Output Total 380 Balance -380 Output, Urine 380 Patient 260 lb 260 lb Weight Weight Reported by Patient Measurement Method Physical Exam General: Obese and lying in bed. Appeared to be uncomfortable due to back pain. HEENT: NCAT. Clear conjunctiva. Gross hearing intact. Nasal passages clear. Mild pharyngeal erythema. Large neck and lymphadenopathy difficult to assess. Neuro: A&Ox4. Immediate and delayed recall intact. Eyelids were drooping during exam. PERRLA and EOMI. CN II-XII intact. Decreased sensation to light touch on the right side. 5/5 strength on left upper/lower extremities and 4/5 strength on the right. 1+ reflexes. No facial droop or slurring of speech. [place]: Distant heart sounds. Normal S1S2. No mrg. No JVD/HJR. 1+DP/PT pulses. No carotid bruits. Pulm: Wheezing across all lung herrera. Poor chest expansion. Abd: NABS. No ttp, rebound, or guarding. Extremities: No peripheral edema. No clubbing or cyanosis. Results Results: Laboratory Tests 03/17/17 1110: Troponin I < 0.01 03/17/17 0514: Troponin I < 0.01 03/17/17 0514: Anion Gap 7, Estimated GFR > 60, BUN/Creatinine Ratio 24.0, Triglycerides 97, Cholesterol 161, LDL Cholesterol, Calc 82, HDL Cholesterol 60, Cholesterol/HDL Ratio 3, CBC w Diff NO MAN DIFF REQ, RBC 4.60 L, MCV 92.4, MCH 30.9, RDW 14.3, MPV 8.1, Gran % 77.3 H, Lymphocytes % 16.2 L, Monocytes % 6.1, Eosinophils % 0.1, Basophils % 0.3, Absolute Granulocytes 7.9 H, Absolute Lymphocytes 1.7, Absolute Monocytes 0.6, Absolute Eosinophils 0, Absolute Basophils 0, PUBS MCHC 33.4 03/16/177: Anion Gap 10, Estimated GFR > 60, BUN/Creatinine Ratio 20.0, Glucose 285 H, Calcium 9.3, Total Bilirubin 0.3, AST 25, ALT 50, Alkaline Phosphatase 137 H, Troponin I 0.01, Total Protein 5.8 L, Albumin 3.5, Globulin 2.3, Albumin/ Globulin Ratio 1.5, Prolactin 9.0, D-Dimer High Sensitivty < 200, CBC w Diff NO MAN DIFF REQ, RBC 4.78, MCV 91.2, MCH 30.9, RDW 14.4, MPV 8.0, Gran % 79.1 H, Lymphocytes % 14.1 L, Monocytes % 6.2, Eosinophils % 0.5, Basophils % 0.1, Absolute Granulocytes 9.2 H, Absolute Lymphocytes 1.6, Absolute Monocytes 0.7 H, Absolute Eosinophils 0.1, Absolute Basophils 0, PUBS MCHC 33.9 Assessment/Plan Assessment: Vitals stable except hypertension troponins: negative D-dimer: negative EKG: NSR CXR: Limited exam due to body habitus but nonspecific patchy opacities in the lower left lobe. Head CT: No acute intracranial damage. Lumbar Spine XR: severe osteoarthritis of the right hip MRI: cancelled due to pt claustrophobia Assessment Pt is a 51 yo male with hypertension, hyperlipidemia, DM, history of CAD, DVT, childhood head trauma, presenting to the ER with 2 separate episodes of loss of consciousness the past week in the setting of symptoms of a URI. He reported associated substernal chest pain during his most recent "blackout" but EKG showed NSR and initial troponins and d-dimers were negative making ACS less likely. He reported generalized weakness and the absence of urinary/bowel incontinence, preceding aura, or jerky movements suggesting a syncopal episode over a seizure. Pt has right-sighted weakness on exam but it is hard to say whether this is a new presentation or residual weakness from his prior stroke. MRI could not be performed to help rule out TIA/stroke, but there was no evidence of intracranial bleed on Head CT. Plan: #1 loss of consciousness Pt's most recent "blackout" presented with generalized weakness in the absence of preceding aura, urinary/bowel incontinence, or jerky movments which is more suggestive of a syncopal episode over a seizure. However, seizure is still in the differential considering pt's significant head trauma as a child and recent history of stroke. -EEG results pending -check orthostats -UTox #2 right-sided weakness Pt's right-sided weakness is concerning for a TIA/stroke. Head CT did not show any evidence of intracranial hemorrhage but MRI is more sensitive for detecting infarcts. Unfortuneately pt could not complete MRI today due to anxiety despite premedication with valium. -attempt MRI with premedication -neurology consult appreciated #3 substernal chest pain ACS unlikey given normal EKGs, stable vitals, and negative troponins. -serial troponins and EKGs -continue plavix, statin, and ASA -smoking cessation counseling #4 DM Blood glucose is 285 and DM not well controlled. Pt reports nausea on one of his oral hypoglycemics. -confirm medication compliance and follow up with career development counselor -maintain diabetic diet -recommend good foot hygeine and care -continue antihypertensive medications -continue monitoring BUN/Cr -smoking cessation counseling #5 lower back pain severe osteoarthritis found in the right hip. Pt reports ongoing back pain not well controlled with percocet. He reported anxiety with administration of ketorolac. -continue percocet and muscle relaxant -assess for pain regularly #6 productive cough Pt presents with URI symptoms of productive cough and congestion, but no fever. Granulocytosis was noted on labs. CXR showed nonspecific opacities which could be suggestive of consolidation. Recent course of Zpak completed. -continue DXM -if fever presents, manage with tylenol -sputum culture if symptoms persist
--- NOTE | 2017-03-17 10:45 | NUR ---
PHARMACY CONTACTED ABOUT PLAVIX, ASA AND LOVENOX ORDERS PER SHAINA MACARIO TO GIVE. PT DOES NOT WANT TORADOL REPORTS IT DOES NOT WORK, DR. GRIMALDO CALLED "WILL LOOK INTO IT" NO CURRENT PERCOCET ORDER.
--- NOTE | 2017-03-17 10:56 | RADIOLOGY REPORT ---
EXAMINATION: XR LUMBOSACRAL SPINE CLINICAL INFORMATION: Low back pain. COMPARISON: None TECHNIQUE: Lumbosacral spine, 4 views FINDINGS: There is transitional lumbosacral anatomy with Castellvi type 2a configuration on the left and diffusely narrowed disc space at the lumbosacral junction. The lumbar vertebra have normal height and alignment. No evidence of vertebral compression fracture, spondylolysis or spondylolisthesis. Mild disc space narrowing and osteophyte formation is seen throughout the lower thoracic and lumbar spine. No focal lytic or osteoblastic lesions. There is mild osteoarthritis of the sacroiliac joints. Severe osteoarthritis of the right hip as manifest by marked loss of superolateral joint space, subarticular sclerosis and osteophyte formation. The visualized components of the left hip arthroplasty are intact. IMPRESSION: 1. No evidence of fracture or malalignment within the mildly degenerated lumbar spine. 2. Transitional lumbosacral anatomy. 3. Severe osteoarthritis of the right hip.
--- NOTE | 2017-03-17 10:57 | NUR ---
DR. GRIMALDO DOWN TO SEE PT. WILL TRY 1 TIME ORDER OF TORADOL.
--- NOTE | 2017-03-17 10:58 | NUR ---
PT CONT TO DENY EVER STRIKING HEAD WITH FALL.
--- NOTE | 2017-03-17 11:14 | NUR ---
REPEAT TROP DRAWN AND SENT TO THE LAB
--- NOTE | 2017-03-17 11:22 | PN- Att Addend ---
Attending Addendum Attending Brief Note Patient seen and examined. Sleepy but arousable. Denies chest pain or shortness of breath. Denies palpitations. Admits to daytime somnolence. Complains of low back pain following fall several days ago. Denies cough or shortness of breath at present. Vital Signs Date Time Temp Pulse Resp B/P B/P Pulse O2 O2 Flow FiO2 Mean Ox Delivery Rate 03/17 1034 97.7 83 20 160/100 97 Room Air 03/17 1032 97.7 83 20 160/100 /08 1032 97.7 83 20 160/100 /08 1032 97.7 83 20 160/100 /08 0508 152/98 / 0503 97.4 70 18 167/106 92 Room Air 03/17 0019 94 03/16 2057 95.5 85 18 162/108 94 Room Air Gen. appearance: Obese, not in acute distress Heart: S1-S2 regular Lungs: Good entry bilaterally, clear to auscultation Abdomen: Soft, nontender with normal bowel sounds Extremities: No edema Skin: Intact with no rashes. Laboratory Tests 03/17/17 1110: Troponin I Pending 03/17/1714: Troponin I < 0.01 03/17/17 0514: Anion Gap 7, Estimated GFR > 60, BUN/Creatinine Ratio 24.0, Triglycerides 97, Cholesterol 161, LDL Cholesterol, Calc 82, HDL Cholesterol 60, Cholesterol/HDL Ratio 3, CBC w Diff NO MAN DIFF REQ, RBC 4.60 L, MCV 92.4, MCH 30.9, RDW 14.3, MPV 8.1, Gran % 77.3 H, Lymphocytes % 16.2 L, Monocytes % 6.1, Eosinophils % 0.1, Basophils % 0.3, Absolute Granulocytes 7.9 H, Absolute Lymphocytes 1.7, Absolute Monocytes 0.6, Absolute Eosinophils 0, Absolute Basophils 0, PUBS MCHC 33.4 03/16/172056: Anion Gap 10, Estimated GFR > 60, BUN/Creatinine Ratio 20.0, Glucose 285 H, Calcium 9.3, Total Bilirubin 0.3, AST 25, ALT 50, Alkaline Phosphatase 137 H, Troponin I 0.01, Total Protein 5.8 L, Albumin 3.5, Globulin 2.3, Albumin/ Globulin Ratio 1.5, Prolactin 9.0, D-Dimer High Sensitivty < 200, CBC w Diff NO MAN DIFF REQ, RBC 4.78, MCV 91.2, MCH 30.9, RDW 14.4, MPV 8.0, Gran % 79.1 H, Lymphocytes % 14.1 L, Monocytes % 6.2, Eosinophils % 0.5, Basophils % 0.1, Absolute Granulocytes 9.2 H, Absolute Lymphocytes 1.6, Absolute Monocytes 0.7 H, Absolute Eosinophils 0.1, Absolute Basophils 0, PUBS MCHC 33.9 Problems: 1. Rule out seizure. 2. High risk for obstructive sleep apnea. 3. Coronary artery disease. Plan: -Obtain EEG. Continue neuro checks. Follow-up neurology consultation. -Upon discharge refer patient to the sleep center for sleep study. -X-ray shows no acute fracture. She was extensive osteoarthritis right hip. -Pain management with Toradol, muscle relaxant therapy with flexaril. Avoid sedating medications.
--- NOTE | 2017-03-17 11:33 | NUR ---
ASSUMED CARE OF PT, PT CURRENTLY LAYING IN BED SLEEPING/SNORING. NO ACUTE DISTRESS NOTED, SR ON MONITOR.
--- NOTE | 2017-03-17 11:47 | NUR ---
PER PT, THE"MEDICATION THEY GAVE ME THROUGH THE IV HAS GIVEN ME ANXIETY, I'M NOT GONNA TAKE IT ANYMORE". BEEPED THE RESIDENT AT 211 AND RELAYED THE INFO, RESIDENT AWARE [facility] WILL REVIEW LABS PRIOR TO ANY MEDICATION CHANGES. CALLED TURF KEEPER FOR TRAY AND WAS TOLD THAT THE ROOM SHOWS UP EMPTY, RE-REQUESTED A TRAY. INFORMED PT.
--- NOTE | 2017-03-17 12:51 | NUR ---
PT TO EEG
--- NOTE | 2017-03-17 13:09 | NUR ---
PT ADMITTED TO ROOM 185-2
--- NOTE | 2017-03-17 13:52 | NUR ---
PT RETURNED FROM EEG
--- NOTE | 2017-03-17 14:09 | NUR ---
REPORT CALLED TO FLOOR.
--- NOTE | 2017-03-17 14:51 | NUR ---
Physical Therapy: Consult received and chart reviewed. Per ED nursing notes, pt ambulating to and from bathroom I. At this time acute skilled PT is not indicated. Thank you.
[2017-03-17 15:00] VITALS: BP 170/102
--- NOTE | 2017-03-17 15:30 | NUR ---
PATIENT ARRIVED TO UNIT VIA STRETCHER FROM ER. ADMITTED WITH TIA. S/P SYNCOPAL EPISODE AND FELL AT HOME. PATIENT ALERT AND ORIENTATED X3. DENIES DIZZINESS. DENIES HEADACHE. AUDIBLE INSPIRATORY AND EXPIRATORY WHEEZES HEARD THROUGHOUT ALL LUNG NAZARIO. SOB WITH EXERTION. TELE MONITOR APPLIED TO CHEST. NSR NOTED. PATINT C/O LOWER BACK PAIN FROM HX OF HERNIATED DISC. PERCACET ORDERED. ORIENTATED TO ROOM AND CALL LIGHT. WILL FOLLOW PLAN OF CARE.
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
--- NOTE | 2017-03-17 16:44 | ELECTROENCEPHALOGRAM REPORT ---
Electroencephalogram Report Electroencephalogram Results Date of service: 03/17/17 Attending MD: JAIR NAVARRO M.D Aircraft Electronics Technical Officer: Rosanna Moore EEG Number: [id number] Test Utilizes: 10-20 system, 21 lead 18 channel digital recording Pertinent Hx/Physical/Neuro Findings/Clin Diagnosis: syncope r/o seizure Inpatient Medications: Current Medications Sig/Glenda Start time Last Medication Dose Route Stop Time Status Admin Albuterol Sulfate 2 PUF Q4-6 PRN PRN 03/17 1000 AC INH Albuterol Sulfate 3 ML ONCE ONE 03/16 2345 DC 03/17 INH 03/16 2346 0019 Amlodipine Besylate 5 MG DAILY 03/17 1000 AC 03/17 PO 1032 Aspirin 81 MG DAILY 03/17 1000 AC 03/17 PO 1032 Aspirin 325 MG DAILY PRN 03/17 0245 DC PO Aspirin 0 .STK-MED ONE 03/16 2231 DC PO Aspirin 325 MG ONCE ONE 03/16 2230 DC 03/16 PO 03/16 2231 2228 Atorvastatin Calcium 40 MG DAILY 03/17 1000 AC 03/17 PO 1032 Clopidogrel Bisulfate 75 MG DAILY 03/17 1000 AC 03/17 PO 1032 Cyclobenzaprine HCl 0 .STK-MED ONE 03/17 1405 DC PO Cyclobenzaprine HCl 5 MG TID 03/17 1133 AC 03/17 PO 1628 Diazepam 2 MG ONCE ONE 03/17 0730 DC 03/17 PO 03/17 0731 0719 Diazepam 0 .STK-MED ONE 03/17 0723 DC PO Diphenhydramine HCl 25 MG Q6P PRN 03/17 0245 AC PO Enoxaparin Sodium 40 MG DAILY 03/17 1000 AC 03/17 SC 1032 Gabapentin 0 .STK-MED ONE 03/17 0608 DC PO Gabapentin 300 MG Q8 03/17 0600 AC 03/17 PO 1405 Guaifenesin/ 10 ML Q6P PRN 03/17 0245 AC Dextromethorphan PO Ibuprofen 600 MG Q6P PRN 03/17 0245 AC PO Insulin Aspart 0 TIDAC 03/17 0800 AC 03/17 SC 0808 Ipratropium [place] 2.5 ML ONCE ONE 03/16 2345 DC 03/17 INH 03/16 2346 0018 Ketorolac 30 MG .[NOW]] PRN 03/17 1100 AC 03/17 Tromethamine IV 1058 Ketorolac 0 .STK-MED ONE 03/17 1100 DC Tromethamine .ROUTE Ketorolac 15 MG BID PRN 03/17 1000 DC Tromethamine IV Lisinopril 10 MG DAILY 03/17 1000 CAN PO Losartan Potassium 50 MG DAILY 03/17 1000 AC 03/17 PO 1032 Metformin HCl 500 MG 0800,1700 08 0800 CAN PO Metoprolol Succinate 25 MG DAILY 03/17 1000 AC 03/17 PO 1032 Oxycodone/ 1 TAB Q8P PRN 03/17 1545 AC 03/17 Acetaminophen PO 1628 Oxycodone/ 1 TAB ONCE ONE 03/17 0700 DC 03/17 Acetaminophen PO 03/17 0701 0701 Oxycodone/ 0 .STK-MED ONE 03/17 0700 DC Acetaminophen PO Oxycodone/ 1 TAB ONCE ONE 03/17 0300 DC 03/17 Acetaminophen PO 03/17 0301 0250 Oxycodone/ 0 .STK-MED ONE 03/17 0253 DC Acetaminophen PO Sitagliptin Phosphate 100 MG DAILY 03/17 1000 CAN PO Sodium Chloride 1,000 ML Q13H 03/17 0245 DC 03/17 IV 03/17 1544 0458 Interpretation: This EEG is obtained in the awake and drowsy states During wakefulness background is medium voltage 8-9 activity In drowsiness the back was also medium voltage 5-7 cps activity No focal or epileptiform activities are seen throughout the recording Photic stimulation induced no abnormalities Impression: Normal EEG in awake and drowsy states
[2017-03-18 01:07] VITALS: BP 168/100
--- NOTE | 2017-03-18 07:08 | PN- Housestaff ---
KARENA CORCORAN MD 03/18/17 0708: Subjective Follow-up For: Syncope Tele-Events Since Last Visit: NSR/SB 40s-60's Subjective: Patient seen and examined. He is seen sitting upright in his chair at bedside resting comfortably. He appears to be in no acute distress. He reports feeling tired, stating that he did not sleep well last night. Otherwise he denies any further episodes of lightheadedness/dizziness or losing consciousness. Additionally he denies any blurred/double vision, headache, fever, chills, chest pain, palpitations, shortness of breath, nausea, vomiting, diarrhea. No overnight events reported. Review of Systems Constitutional: Reports: see HPI. Objective Last 24 Hrs of Vital Signs/I&O Vital Signs Date Time Temp Pulse Resp B/P B/P Pulse O2 O2 Flow FiO2 Mean Ox Delivery Rate 03/18 1514 178/100 03/18 1407 79 160/88 03/18 1407 98.1 79 24 160/88 03/18 1246 98.1 79 24 168/98 93 Room Air 03/18 1038 94 Room Air 03/18 0920 98.7 69 18 180/90 03/18 0920 98.7 69 18 180/90 03/18 0920 69 180/90 03/18 0800 95 Room Air Room Air 03/18 0200 96 Nasal 3.0L Cannula 03/18 0107 98.7 69 18 168/100 03/18 0000 97 Nasal 3.0L Cannula Intake & Output 03/18 1600 03/18 0800 03/18 0000 Intake Total 500 100 200 Output Total Balance 500 100 200 Intake, Oral 500 100 200 Physical Exam General Appearance: Alert, Oriented X3, Cooperative, No Acute Distress Other Physical Findings: General- well developed, well nourished moribdly obese middled aged man appearing tired, but in no acute distress HEENT- NCAT, PERRL, EOMI, anicteric sclera, moust mucous membranes Chest- S1, S2 w/o m/g/r Lung- CTA bilaterally, decreased bibasillar airflow Abdomen- soft, nontender, nondistended, bowel sounds intact Neuro- Awake but somnolent, CN II - XII grossly intact Ext- normal pulses, no cyanosis/clubbing/edema Current Medications: Current Medications Sig/Glenda Start time Last Medication Dose Route Stop Time Status Admin Albuterol Sulfate 3 ML TID 03/17 2200 DCD 03/18 INH 1324 Albuterol Sulfate 2 PUF Q4-6 PRN PRN 03/17 1000 DCD INH Amlodipine Besylate 10 MG DAILY 03/18 1000 DCD 03/18 PO 0920 Amlodipine Besylate 5 MG DAILY 03/17 1000 DC 03/17 PO 1032 Aspirin 81 MG DAILY 03/17 1000 DCD 03/18 PO 0920 Atorvastatin Calcium 40 MG DAILY 03/17 1000 DCD 03/18 PO 0920 Clopidogrel Bisulfate 75 MG DAILY 03/17 1000 DCD 03/18 PO 0920 Cyclobenzaprine HCl 5 MG TID 03/17 1133 DCD 03/18 PO 0920 Diphenhydramine HCl 25 MG Q6P PRN 03/17 0245 DCD PO Enoxaparin Sodium 40 MG DAILY 03/17 1000 DCD 03/18 SC 0920 Gabapentin 300 MG Q8 03/17 0600 DCD 03/18 PO 1407 Guaifenesin 10 ML .STK-MED ONE 03/18 0822 DC PO 03/18 0823 Guaifenesin/ 10 ML Q6P PRN 03/17 0245 DCD Dextromethorphan PO Ibuprofen 600 MG Q6P PRN 03/17 0245 DCD PO Insulin Aspart 0 TIDAC 03/17 0800 DCD 03/18 SC 1230 Ketorolac 30 MG .[NOW]] PRN 03/17 1100 DCD 03/17 Tromethamine IV 1058 Lisinopril 10 MG ONCE ONE 03/18 1245 DC 03/18 PO 03/18 1246 1407 Losartan Potassium 50 MG ONCE ONE 03/18 1245 DC 03/18 PO 03/18 1246 1407 Losartan Potassium 50 MG DAILY 03/17 1000 DCD 03/18 PO 0920 Metoprolol Succinate 25 MG DAILY 03/17 1000 DCD 03/18 PO 0920 Oxycodone/ 1 TAB Q8P PRN 03/17 1545 DCD 03/18 Acetaminophen PO 0823 Patient Medication 1 ED .STK-MED ONE 03/18 1424 DC Teaching ED 03/18 1425 Assessment/Plan Assessment: Patient was seen and evaluation by neurology yesterday whom felt patients drop attacks may have been due to a cardiac arrhythmia, orthostatic hypotension, or seizure. EEG was obtianed and was unremarkable. Patient was unable to tolerate the MRI examination despite being premedicated, so it was deferred. Orthostatic vitals were negative. Patient was complaining of low back pain, which is reportedly baseline for which a lumbar film was obtained that identified severe osteoarthritis of the right hip. He is to be provided with a short prescription for percocet on discharge with instruction to follow up with his PCP for further management, CT FINANCE CLERK checked. Patients symptoms seem to be due to his weight, and apparent undiagnosed sleep apnea. He is to followup with his primary care provider for further evaluation of this. Problem List: -Drop attacks -Back/hip pain/Severe osteoarthritis -Hypertension -Probable sleep apnea Plan: -DC to home -10 tablets of percocet for pain provided, CT FINANCE CLERK checked -Continue all other home medications -Outpatient sleep study Problem List: 1. Syncope Pain Ratin Pain Location: Low back Pain Goal: Pain 4 or less Pain Plan: See assessment Tomorrow's Labs & Rationales: None JAIR NAVARRO MD 03/18/17 1200: Attending MD Review Statement Attending Statement Attending MD Statement: examined this patient, discuss w/resident/PA/GLUTEN SETTLING TENDER, agreed w/resident/PA/GLUTEN SETTLING TENDER, reviewed EMR data (avail), discussed with nursing, discussed with case mgmt, amended to note Attending Assessment/Plan: Patient seen and examined. Resting comfortably and not in any acute distress. No events overnight on telemetry. Alert and oriented 3. Reports similar feeling of tremulousness this morning after immediately waking up on his way to the bathroom. Reports that episode resolved after sitting down. He remains without any focal neurologic deficits. Neurology consultation appreciated. Outpatient tilt table test recommended. It is possible that his symptoms may be secondary to transient cerebral hypoxia brought up by sleep apnea. He is willing to undergo a sleep study as an outpatient. EEG showed no evidence of seizures. Problems: -Drop attacks. -Hypertension -Patient syndrome; secondary to osteoarthritis. Recommendations: -Patient doesn't have orthostatic blood pressure changes. -His blood pressure has been on the high side. At-home patient is on Dominga ( Amlodipine/Olesartan), Toprol Xl and Lisinopril. He was started on amlodipine, Losartan, Toprol-XL but not lisinopril. Due to his elevated blood pressure he was given a dose of lisinopril, he also received an additional dose of losartan in order to match his home dose of Olesartan. His blood pressure did improve but became elevated again when rechecked. Patient is very anxious about going home. He reports his blood pressure is controlled at home, he reports checking his blood pressure regularly. He has been advised to resume his home regimen at home and to follow-up with his primary care provider next week. I have also advised him to maintain a log of his blood pressure at home. -After this he may be discharged home with referral for tilt table testing and sleep study. -Provided with a 3 day supply of Percocet for pain control after which he is to follow-up with his primary care provider
--- NOTE | 2017-03-18 08:33 | Patient Discharge Instructions ---
Discharge Instructions General Discharge Information Special Instructions: Continue all your previous home medicaitons, dose not miss a dose. Speak to your primary care provider about obtaining a sleep study for evaluation of sleep apnea. Schedule an appointment with Dr. Allred for further evaluation of your ' Syncope'. Acute Coronary Syndrome Inclusion Criteria At DC or during hospital stay patient has or had the following: ACS DIAGNOSIS No Discharge Core Measures Meds if any: Prescribed or Continued at Discharge Meds if any: NOT Prescribed or Continued at Discharge Congestive Heart Failure Inclusion Criteria At DC or during hospital stay patient has or had the following: CHF DIAGNOSIS No Discharge Core Measures Meds if any: Prescribed or Continued at Discharge Meds if any: NOT Prescribed or Continued at Discharge Cerebrovascular accident Inclusion Criteria At DC or during hospital stay patient has or had the following: CVA/TIA Diagnosis No Discharge Core Measures Meds if any: Prescribed or Continued at Discharge Meds if any: NOT Prescribed or Continued at Discharge Venous thromboembolism Inclusion Criteria VTE Diagnosis No VTE Type NONE VTE Confirmed by (Test) NONE Discharge Core Measures - Per Current guidelines, there needs to be overlap - treatment for the first 5 days of Warfarin therapy. - If discharged on Warfarin prior to 5 days of - overlap therapy, the patient will need to be - assessed for post discharge needs including - *Post discharge parental anticoagulation - *Warfarin and/or parental anticoagulation education - *Follow up date to check INR post discharge At least 5 days overlap therapy as Inpatient No Meds if any: Prescribed or Continued at Discharge Note: Overlap Therapy is Warfarin and Anticoagulant Meds if any: NOT Prescribed or Continued at Discharge
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
[2017-03-18 12:46] VITALS: BP 168/98
[2017-03-18] MEDS ORDERED: PERCOCET 5-3251 EACH PO (14:47)
--- NOTE | 2017-03-18 15:00 | NUR ---
PATIENT BLOOD PRESSURE ELEVATED. RESULT DOCUMENTED IN IPOC. DR NAVARRO AWARE. PATIENT GIVEN ADDITIONAL DOSE OF 50MG PO LOSARTAN AND LISINOPRIL 10MG BY MOUTH. REASSEMENT OF BLOOD PRESSURE NOTED TO BE 178/100. DR NAVARRO AWARE AND WENT TO DISCUSS RESULT WITH PATIENT. PATIENT WANTED TO BE DISCHARGE REGARDLESS AND TO FOLLOWUP WITH PRIMARY CARE PROVIDER AND NEUROLOGIST. DISCHARGE INSTRUCTIONS REVIEWED WITH PATIENT WITH EMPHASIS PLACE ON HE FOLLOWUP WITH HIS DOCTOR. PATIENT VERBALIZED UNDERSTANDING AND STATED HE WILL FOLLOWUP RECCOMMENDED. PATIENT LEFT HOSPITAL ALERT AND ORIENTATED AND ASYMPTOMATIC.
[2017-03-18 15:14] VITALS: BP 178/100
== END 2017-03-18 15:30 ==
LOC: ERH 20:24 → ERHI 03-17 00:53 → 1NO 03-17 00:53 → ERHI 03-17 00:53 → EDBEDREQ 03-17 01:26 → ENRESERV 03-17 02:34 → ERHI 03-17 07:11 → ENRESERV 03-17 13:09 → ENTRNSPT 03-17 14:59 → EDTRNSPT 03-17 15:03 → EDTRNSPTTYP 03-17 15:03 → CMPTRNSPT 03-17 15:11 → 1NO 03-17 15:12 → ERHI 03-17 15:22 → 1NO 03-17 15:23 → ENPENDDIS 03-18 11:37 → 1NO 03-18 15:30
PROVIDERS: Emergency Medicine; Internal Medicine Hematology & Oncology; ADMIT Student in an Organized Health Care Education/Training Program
DX: R55 Syncope and collapse (principal); I10 Essential (primary) hypertension; E78.5 Hyperlipidemia, unspecified; I25.10 Atherosclerotic heart disease of native coronary artery without angina pectoris; Z86.718 Personal history of other venous thrombosis and embolism; E11.8 Type 2 diabetes mellitus with unspecified complications; Z79.84 Long term (current) use of oral hypoglycemic drugs; E66.01 Morbid (severe) obesity due to excess calories; Z68.41 Body mass index [BMI] 40.0-44.9, adult; M19.90 Unspecified osteoarthritis, unspecified site; I25.2 Old myocardial infarction; I69.351 Hemiplegia and hemiparesis following cerebral infarction affecting right dominant side; F17.200 Nicotine dependence, unspecified, uncomplicated
CPT/HCPCS: 1255; 1263; 1328; 1395; 1748; 72110; 80307; 82436; 93005; 93010; 95816; 96372; 96374; G0378; J1650; J1885; J3490

== ENCOUNTER 2017-04-02 20:01 | Emergency (ER) | payer OTHER ==
[~2017-04-02] VITALS: Ht 167.6 cm; Wt 117.9 kg
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
--- NOTE | 2017-04-02 21:47 | CT SCAN REPORT ---
EXAMINATIONS: CT HEAD WITHOUT CONTRAST AND CT CERVICAL SPINE WITHOUT CONTRAST CLINICAL INFORMATION: Status post fall, head injury, on Plavix. Neck pain. COMPARISON: CT of the head 03/16/2017 TECHNIQUE: Contiguous helical images of the brain were obtained without IV contrast. Contiguous helical images of the cervical spine were obtained without IV contrast. Multiplanar reconstructions were performed. DLP: 1070.9 mGy-cm FINDINGS: There are no pathologic extra-axial fluid collections. The lateral, third, fourth ventricles are nondilated and concordant with the appearance of the sulci. There is no evidence for acute intraparenchymal hemorrhage or infarct. There is neither mass nor mass effect. There is no shift of midline structures. The paranasal sinuses and mastoid air cells are clear. Right frontal sinus is not pneumatized. There are no osseous lesions. There is no prevertebral soft tissue swelling. There is near fusion of the C2 and C3 vertebral body with near complete loss of intervertebral disc space. The vertebral body heights of the cervical spine are maintained. The remaining intervertebral disc spaces are within normal range aside from minimal narrowing at the C7-T1 level. Images are of the lower cervical spine are somewhat limited secondary to artifact related to the patient's shoulders. No definite fracture is visualized. There is reversal of the normal cervical lordosis. The relationship between the lateral masses of C1 and the odontoid process of C2 are maintained. The visualized lung apices are clear. IMPRESSION: 1. No acute intracranial hemorrhage. 2. Mildly limited evaluation of the inferior cervical spine secondary to artifact as described. No convincing evidence for acute fracture or subluxation of the cervical spine. 3. Bony fusion of the C2-C3 level. Mild multilevel spondylosis. 4. Reversal of the normal cervical lordosis is most likely positional or related to underlying muscle spasm.
--- NOTE | 2017-04-02 22:34 | RADIOLOGY REPORT ---
EXAMINATION: XR HIP, LEFT XR ANKLE, RIGHT CLINICAL INFORMATION: Left hip and right ankle pain following a fall. COMPARISON: Left hip radiographs dated 06/10/2013. TECHNIQUE: AP and frog-leg lateral views of the left hip as well as AP, mortise, and lateral views of the left ankle were obtained. FINDINGS: LEFT HIP: Total left hip arthroplasty in unchanged position. No perihardware lucency to suggest loosening or infection. No acute osseous or hardware fracture. RIGHT ANKLE: No fracture. The ankle mortise is well-maintained. Small tibiotalar marginal osteophytes. No osseous erosion. Dorsal calcaneal spur. Mild circumferential soft tissue swelling. IMPRESSION: LEFT HIP: Total left hip arthroplasty without evidence of complication. RIGHT ANKLE: Mild tibiotalar osteoarthritis. Mild circumferential soft tissue swelling.
[2017-04-02] MEDS ORDERED: PERCOCET 5-3251 EACH PO (22:39)
[2017-04-02 22:47] VITALS: BP 166/78
== END 2017-04-02 22:47 ==
LOC: ERH 20:01
DX: S93.401A Sprain of unspecified ligament of right ankle, initial encounter (principal); S70.02XA Contusion of left hip, initial encounter; S09.90XA Unspecified injury of head, initial encounter; W10.9XXA Fall (on) (from) unspecified stairs and steps, initial encounter; Y92.9 Unspecified place or not applicable; Y93.9 Activity, unspecified
CPT/HCPCS: 73502-LT; 73610-RT

== ENCOUNTER 2017-04-13 15:59 | Emergency (ER) | payer OTHER ==
[~2017-04-13] VITALS: Ht 167.6 cm; Wt 117.9 kg
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
[2017-04-13] MEDS ORDERED: KEFLEX500 M1 PO (17:48)
[2017-04-13] MEDS ORDERED: BACTRIM DS TAB1 EACH PO (17:48)
[2017-04-13] MEDS ORDERED: PERCOCET 5-3251 EACH PO (17:48)
[2017-04-13 17:59] VITALS: BP 142/80
== END 2017-04-13 18:00 ==
LOC: ERH 15:59
DX: L02.412 Cutaneous abscess of left axilla (principal)
CPT/HCPCS: 87184; 87070; 87147

== ENCOUNTER 2017-11-30 09:49 | Emergency (ER) | payer OTHER ==
[~2017-11-30] VITALS: Ht 167.6 cm; Wt 117.9 kg
[~2017-11-30 09:49] MED LIST changes: +AMOX-CLAV 875-1 EACH PO; +AMOXICILLIN875 M1 PO; +AUGMENTIN 875-1 EACH PO; +AZITHROMYCIN250 M1 PO; +BACTRIM DS TAB1 EACH PO; +BENZONATATE200 M1 PO; +CIPRO500 M1 PO; +CLOTRIMAZOLE15 GM TOP; +FAMOTIDINE40 M1 PO; +GUAIFENESIN ER600 MG PO; +HYDRALAZINE HCL10 M1 PO; +KEFLEX500 M1 PO; +LASIX20 M1 PO; +LASIX40 M1 PO; +LEVAQUIN500 M1 PO; +LEVAQUIN750 M1 PO; +METOPROLOL TART50 M1 PO; +MOBIC15 M1 PO; +NOVOLOG100 UNIT/2 SC; +NYSTATIN100000 UNI PO; +NYSTATIN15 G1 TOP; +OMEPRAZOLE40 M1 PO; +PREDNISONE20 M1 PO; +PROVENTIL HFA6.7 GM INH; +ZOFRAN ODT4 M1 SL
[2017-11-30 10:23] VITALS: BP 144/90
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
[2017-11-30 11:05] LABS: ABSOLUTE BASOPHIL COUNT 0.1 /CUMM (0.0-0.2); ABSOLUTE EOSINOPHIL COUNT 0.2 /CUMM (0.0-0.7); ABSOLUTE GRANULOCYTE CT 7.3 /CUMM (1.4-6.5); ABSOLUTE LYMPH COUNT 2.9 /CUMM (1.2-3.4); ABSOLUTE MONOCYTE COUNT 0.7 /CUMM (0.10-0.60); BASOPHIL % 0.7 % (0.0-2.0); EOSINOPHIL % 1.9 % (0-5); GRANULOCYTE % 64.8 % (42.2-75.2); HEMATOCRIT 43.6 % (42-52); MEAN CORPUSCULAR HGB 31.4 PG (27.0-31.0); MEAN CORPUSCULAR HGB CONC 34.7 G/DL (33.0-37.0); MEAN CORPUSCULAR VOLUME 90.7 FL (80.0-94.0); MEAN PLATELET VOLUME 8.1 FL (7.4-10.4); PLATELET COUNT 303 /CUMM (130-400); RBC DISTRIBUTION WIDTH 13.8 % (11.5-14.5); RED BLOOD CELL CT 4.81 /CUMM (4.70-6.10); WHITE BLOOD CELL COUNT 11.3 /CUMM (4.8-10.8)
--- NOTE | 2017-11-30 11:39 | CT SCAN REPORT ---
EXAMINATION: CT HEAD WITHOUT CONTRAST CLINICAL INFORMATION: Right leg weakness. COMPARISON: Head CT 11/18/2017. TECHNIQUE: Contiguous axial imaging was performed from the skull base to vertex without intravenous administration of contrast. DLP: 689 mGy-cm. FINDINGS: There is no intracranial hemorrhage, large infarction, or mass lesion. There is no extra-axial collection. There is redemonstration of a chronic lacunar infarct within the right caudate head. There is mild scattered hypoattenuation in the bilateral cerebral white matter, which is nonspecific but likely reflects small vessel disease. The ventricles are normal in size without evidence of hydrocephalus. The paranasal sinuses are clear. There is chronic deformity of the nasal septum which is deviated to the left. The mastoids and middle ear cavities are clear. IMPRESSION: No acute intracranial abnormality identified.
== END 2017-11-30 12:21 ==
LOC: ERH 09:49
PROVIDERS: Emergency Medicine
DX: R51 Headache (principal); R07.9 Chest pain, unspecified
CPT/HCPCS: 80307; 93005; 93010; 96374; J1885

== ENCOUNTER 2018-01-13 20:47 | Inpatient (IN) | payer OTHER ==
[~2018-01-13] VITALS: Ht 167.6 cm; Wt 120.3 kg
[~2018-01-13 20:47] MED LIST changes: +LEVSIN-SL0.125 MG SL
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
--- NOTE | 2018-01-13 21:40 | RADIOLOGY REPORT ---
EXAMINATION: XR CHEST CLINICAL INFORMATION: Dyspnea COMPARISON: 10/29/2017 TECHNIQUE: 2 views of the chest were obtained. FINDINGS: The lungs are well expanded. There is no focal consolidation, edema, or effusion. Mild bronchial wall thickening noted. No pneumothorax. The cardiomediastinal silhouette is within normal limits. No acute osseous abnormality. IMPRESSION: No consolidation. Bronchial wall thickening can be seen with a small airways process such as asthma or atypical/viral infection.
--- NOTE | 2018-01-13 21:58 | CT SCAN REPORT ---
EXAMINATION: CT HEAD WITHOUT CONTRAST CLINICAL INFORMATION: Headache. COMPARISON: 11/30/2017 TECHNIQUE: Contiguous axial imaging was performed from the skull base to vertex without intravenous administration of contrast. DLP: 619 mGy-cm FINDINGS: There is no evidence of acute intracranial hemorrhage or territorial infarction. No abnormal mass effect or midline shift is seen. Spears to white matter differentiation is well preserved. No extra-axial fluid collections are identified. The ventricles, sulci, and extra-axial series of spaces are normal in caliber and configuration. There is a tiny cavum septum pellucidum, unchanged. Faint hypoattenuation in the bifrontal white matter is stable. A punctate chronic lacunar infarct is visualized in the right caudate head, unchanged. Otherwise attenuation within the brain is unremarkable. No acute osseous abnormality. There is a tiny osteoma measuring 5 mm arising off of the right parietal outer table, unchanged. The imaged paranasal sinuses are clear apart from mild mucosal thickening and small retention cysts in the maxillary sinuses. The mastoid air cells and middle ear cavities are clear. No acute osseous abnormality. IMPRESSION: No acute intracranial pathology.
[2018-01-13 22:21] LABS: ABSOLUTE BASOPHIL COUNT 0.1 /CUMM (0.0-0.2); ABSOLUTE EOSINOPHIL COUNT 0.2 /CUMM (0.0-0.7); ABSOLUTE GRANULOCYTE CT 8.6 /CUMM (1.4-6.5); ABSOLUTE LYMPH COUNT 2.4 /CUMM (1.2-3.4); ABSOLUTE MONOCYTE COUNT 0.8 /CUMM (0.10-0.60); BASOPHIL % 0.5 % (0.0-2.0); EOSINOPHIL % 1.8 % (0-5); GRANULOCYTE % 71.3 % (42.2-75.2); MEAN CORPUSCULAR HGB 30.5 PG (27.0-31.0); MEAN CORPUSCULAR HGB CONC 33.8 G/DL (33.0-37.0); MEAN CORPUSCULAR VOLUME 90.3 FL (80.0-94.0); MEAN PLATELET VOLUME 8.6 FL (7.4-10.4); PLATELET COUNT 296 /CUMM (130-400); RBC DISTRIBUTION WIDTH 14.1 % (11.5-14.5); RED BLOOD CELL CT 4.87 /CUMM (4.70-6.10); WHITE BLOOD CELL COUNT 12.1 /CUMM (4.8-10.8)
[2018-01-13 22:31] LABS: PT 9.5 SEC (9.4-12.5); PTT 26 SEC (25-37)
[2018-01-13] MEDS ORDERED: NOVOLOG100 UNIT/2 SC (22:52)
[2018-01-13] MEDS ORDERED: HUMULIN 70100 UNIT/1 SC (22:53)
[2018-01-13] MEDS ORDERED: NICOTINE PATCH1 EAC2 TOP (22:53)
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
[2018-01-14 03:14] VITALS: BP 146/86
[2018-01-14 06:52] VITALS: BP 142/70
--- NOTE | 2018-01-14 07:08 | Admission Certification ---
Admission Certification Certification Statement - As attending physician, I certify that at the time of - admission, based on clinical presentation, severity of - symptoms, need for further diagnostic testing and - therapeutic interventions, and risk of adverse outcomes - without in-hospital treatment, in my clinical assessment, - this patient requires an acute hospital stay for a minimum - of two nights or longer. I have also considered psychsocial - factors such as support system, advanced age, financial - issues, cognitive issues, and failed out-patient treatments, - past re-admission history, safety of patient, and lack of - compliance as applicable. Specific rationale supporting this admission is: Chest pain rule out ACS, bronchitis
--- NOTE | 2018-01-14 08:43 | PN- Housestaff ---
SeamusKalyani Wilbur Figueroa 01/14/18 0843: Subjective Follow-up For: Per Problem list in AP Tele-Events Since Last Visit: NSR 70-80s Subjective: no overnight event. Patient was ambulating in room. He said he felt some cold and headache and would request some tylenol. No CP/SOB/Ab pain overnight since admission. No other specific complaint. Review of Systems Constitutional: Reports: see HPI. Objective Last 24 Hrs of Vital Signs/I&O Vital Signs Date Time Temp Pulse Resp B/P B/P Pulse O2 O2 Flow FiO2 Mean Ox Delivery Rate 01/15 652 98.3 82 20 142/70 91 Room Air 01/14 0314 97.9 74 20 146/86 93 Room Air 01/14 0215 85 18 153/77 97 Room Air 01/14 0050 81 18 159/74 96 Room Air 01/13 2327 88 18 164/77 95 Room Air 01/13 2207 100 18 165/85 100 Room Air 01/13 2112 98.2 96 24 167/95 96 Intake & Output 01/14 1600 01/14 0800 01/14 0000 Intake Total 500 0 Output Total 300 Balance 200 0 Intake, Oral 500 0 Output, Urine 300 Patient 117.934 kg 120.202 kg Weight Weight Reported by Patient Measurement Method Physical Exam General Appearance: Alert, Oriented X3, Cooperative, No Acute Distress Cardiovascular: Regular Rate Lungs: Clear to Auscultation, Normal Air Movement Abdomen: Soft, No Tenderness Neurological: Normal Gait, Normal Speech, Strength at 5/5 X4 Ext Current Medications: Current Medications Sig/Glenda Start time Last Medication Dose Route Stop Time Status Admin Acetaminophen 325 MG Q6P PRN 01/14 0345 AC PO Aspirin 81 MG DAILY 01/14 1000 AC 01/14 PO 0843 Aspirin 325 MG ONCE ONE 01/13 2145 DC 01/13 PO 01/13 Aspirin 0 .STK-MED ONE 01/13 2145 DC PO Atorvastatin Calcium 40 MG DAILY 01/14 1000 AC 01/14 PO 0843 Azithromycin 500 MG 0500 01/14 0315 AC 01/14 Dextrose/Water 250 ML IV 0602 Heparin Sodium 5,000 UNIT Q8 01/14 06 AC 01/14 (Porcine) SC 0526 Insulin Aspart 0 TIDAC 01/14 08 AC 01/14 SC 0843 Insulin Detemir 8 UNITS BID 01/14 2200 [facility] Insulin Detemir 8 UNITS ONCE ONE 01/14 315 DC 01/14 AK 01/15 316 0336 Insulin Human Regular 5 UNITS STAT STA 01/14 50 DC 01/14 AK 01/14 51 010 Nitroglycerin 0 .STK-MED ONE 01/14 54 DC TOP Nitroglycerin 0 .STK-MED ONE 01/14 50 DC TOP Nitroglycerin 1 GM ONCE ONE 01/14 45 DC 01/14 TOP 01/14 46 004 Nitroglycerin 0.4 MG ONCE ONE 01/13 2145 DC 01/13 01/13 Nitroglycerin 0 .STK-MED ONE 01/13 2145 [facility] Oxycodone/ 1 TAB Q6P PRN 01/14 345 AC 01/14 Acetaminophen PO 0858 Oxycodone/ 0 .STK-MED ONE 01/14 50 DC Acetaminophen PO Oxycodone/ 1 TAB ONCE ONE 01/14 45 DC 01/14 Acetaminophen PO 01/14 46 004 Tramadol HCl 50 MG Q6 PRN 01/14 345 AC PO Last 24 Hrs of Lab/Jose Results Last 24 Hrs of Labs/Mics: Laboratory Tests 01/14/18 0555: Troponin I < 0.01, Triglycerides 232 H, Cholesterol 167, LDL Cholesterol, Calc 81, HDL Cholesterol 40, Cholesterol/HDL Ratio 4 01/13/187: Anion Gap 8, Estimated GFR > 60, BUN/Creatinine Ratio 24.0, Glucose 344 H, Hemoglobin A1c Pending, Calcium 8.6, Total Bilirubin 0.4, Direct Bilirubin 0.4, AST 19, ALT 36, Alkaline Phosphatase 151 H, Troponin I < 0.01, Total Protein 5.2 L, Albumin 3.0 L, Amylase < 30 L, Lipase 91 01/13/182199: PT 9.5, INR 0.87 L, APTT 26, D-Dimer High Sensitivty < 200, CBC w Diff NO MAN DIFF REQ, RBC 4.87, MCV 90.3, MCH 30.5, MCHC 33.8, RDW 14.1, MPV 8.6, Gran % 71.3, Lymphocytes % 20.1 L, Monocytes % 6.3, Eosinophils % 1.8, Basophils % 0.5 , Absolute Granulocytes 8.6 H, Absolute Lymphocytes 2.4, Absolute Monocytes 0.8 H, Absolute Eosinophils 0.2, Absolute Basophils 0.1 Microbiology 01/14 030 LOWER RESP: Respiratory Culture - COLB 01/14 309 LOWER RESP: Gram Stain - COLB 01/13 2200 NASOPHARYN: Influenza Virus A & B Rapid Smear - COMP Assessment/Plan Assessment: Mr Haq is a 52 year old man w/ a PMHx of CAD s/p PCI, hypertension, hyperlipidemia, history of myocardial infarction treated at [facility] and underwent catheterization, CVA status post TPA in 2014, unprovoked DVT (5 years ago) came to the hospital with a chief concern of chest pain, severity 7/10, associated with dizziness. He also had a chief concern of cough and 4 days. No fever. Similar symptoms 1 month ago. At the time of qhjponavj-khhpsl-ovafcrqvrzt 98.2, pulse rate 96, respiration 24, blood pressure 167/95, pulse ox 96% on room air. General Exam: AAOx3, No acute distress, Skin: No rashes, no breakdown;HEENT: PERRLA, EOMI;Neck: Supple, No JVD ;No cervical lymphadenopathy;CVS: Reg Rate, Normal S1,S2, No MGR;Resp: Decreased air entry, bilateral rales;Abdomen: Soft, No tenderness, Normal Bowel Sounds;Neuro: Normal Speech, Strength 5/5 b/l x 4 extremities, Sensation intact, CN III-XII NL, Reflexes 2+;Extremities: No cyanosis, no pedal edema. Pertinent Findings: WBC 12.1, hemoglobin 14.8, hematocrit 44.0, MCV 90.3, platelets 296. Sodium 135 , potassium 3.7, BUN 12, creatinine 0.5, glucose 344, liver chemistries-AST 19, ALT 36, alkaline phosphatase 151 (elevated), cardiac enzymes-troponin I-0.01, INR 0.87,INR 0.87, d-dimer less than 200. Chest [id number]-jnr-zwduebmx no consolidation however had bronchial wall thickening likely from viral infection. Head CT revealed no acute intracranial pathology. Echocardiogram done 01/07/2017 revealed Normal size left ventricle. Severe concentric left ventricular hypertrophy. No obvious regional wall motion abnormalities. Normal left ventricular ejection fraction visually estimated at > 65%. "pseudonormal" filling pattern of the left ventricle for age (stage 2 diastolic dysfunction). Normal right ventricular size and function. Normal atrial size. Trace mitral regurgitation. etiology in this case is likely unstable angina w/o elevated cardiac enzymes with positive cardiac risk factors smoking/age > 35/HLD/DM/HTN. Other etiologies such as anxiety,aortic dissection, GERD, coronary artery spasm or PE are to considered as differentials. In regards to his diabetes, he should be started on Levemir, and short-acting insulin. Problem list: #1 unstable angina #2 history of diabetes #3 history of TIA #4 history of hypertension #6 history of DVT Plan: # continue telemetry for cardiac monitoring # continue daily aspirin and statin # serial electrocardiograms, cardiac enzymes every 8 hours had been negative x 2 # sublingual nitroglycerin for pain control(hold for low BP) # metoprolol 25 mg by mouth within the first 24 hoursafter ruling out contraindications such as active cocaine use. # IV heparin after conferring with cardiology, if needed. # Pending cardiology consult # echocardiogram # lipid profile revealed hyperTG # IV azithromycin for the treatment of bronchitis # Endocrinology consult appreciated ,insulin SS adjusted. Housekeeping: #1 DVT prophylaxis-heparin subcutaneous Full code. Problem List: 1. Chest pain Pain Ratin Pain Location: Headache, no cp Pain Goal: Remain pain free Pain Plan: see AP Tomorrow's Labs & Rationales: VANDANA Dotson MD,Serge 01/14/18 1300: Attending MD Review Statement Attending Statement Attending MD Statement: examined this patient, discuss w/resident/PA/SENIOR ACTUARIAL ANALYST, agreed w/resident/PA/SENIOR ACTUARIAL ANALYST, reviewed EMR data (avail) Attending Assessment/Plan: Patient continues to have anterior chest pain but mostly with the taking deep breaths. He has mild cough. Chest exam shows slight scattered wheezing. Patient appears comfortable and is able to ambulate without any difficulty. His vital signs occur in a stable and he is afebrile. Room air saturation 91%. 2 troponins have been negative. Triglyceride level 232. Chest x-ray report shows bronchial wall thickening. Assessment plan Chest pain Suspected acute bronchitis Plan Await cardiology input Following the current recommendations to increase Levemir and adjust sliding scale Complete third troponin Change IV azithromycin to by mouth lorne
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
[2018-01-14 14:24] VITALS: BP 158/84
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
[2018-01-14 22:06] VITALS: BP 182/110
[2018-01-14 23:09] VITALS: BP 160/100
[2018-01-15 07:05] VITALS: BP 160/100
[2018-01-15 07:44] LABS: ABSOLUTE BASOPHIL COUNT 0 /CUMM (0.0-0.2); ABSOLUTE EOSINOPHIL COUNT 0.2 /CUMM (0.0-0.7); ABSOLUTE LYMPH COUNT 3.4 /CUMM (1.2-3.4); ABSOLUTE MONOCYTE COUNT 0.6 /CUMM (0.10-0.60); BASOPHIL % 0.2 % (0.0-2.0); EOSINOPHIL % 2.1 % (0-5); GRANULOCYTE % 54.2 % (42.2-75.2); MEAN CORPUSCULAR HGB 30.8 PG (27.0-31.0); MEAN CORPUSCULAR HGB CONC 33.6 G/DL (33.0-37.0); MEAN CORPUSCULAR VOLUME 91.4 FL (80.0-94.0); MEAN PLATELET VOLUME 8.8 FL (7.4-10.4); PLATELET COUNT 290 /CUMM (130-400); RBC DISTRIBUTION WIDTH 13.7 % (11.5-14.5); RED BLOOD CELL CT 4.82 /CUMM (4.70-6.10); WHITE BLOOD CELL COUNT 9.2 /CUMM (4.8-10.8)
--- NOTE | 2018-01-15 09:32 | PN- Diabetes ---
Assessment/Plan Diabetes Assessment: Patient feels improved. He has had no further chest pain. His breathing is good. His blood sugars are beginning to come down. He is on Levemir 15 units twice a day along with sliding scale NovoLog starting with 6 units for a sugar of 80-150 and 8 units for 151-200. His fingerstick sugar before breakfast this morning is 226. Plan: Suggest continue the present insulin regimen. His sugars are improving gradually. The patient mentioned that he may have a stress test tomorrow. The patient can get his usual dose of Levemir tonight. Tomorrow morning I would hold his Levemir and his NovoLog premeal coverage while n.p.o. If he is n.p.o. after midnight we should place him on D5 half-normal saline at 75 cc/h. In addition we should begin NovoLog coverage every 4 hours for sugar above 150. NovoLog coverage every 4 hours while n.p.o. should be less than 150 give no insulin, 151-200 give 4 units NovoLog, 201-250 give 5 units NovoLog, 251 -300 give 6 units NovoLog, 301-350 give 7 units NovoLog, 351-400 give 8 units NovoLog. Subjective Subjective: Feels improved Review of Systems Constitutional: Denies: chills, fever. Cardiovascular: Denies: chest pain. Respiratory: Denies: cough, short of breath. Gastrointestinal: Denies: abdominal pain. Skin: Reports: no symptoms. Objective Last 24 Hrs of Vital Signs/I&O Vital Signs Date Time Temp Pulse Resp B/P B/P Pulse O2 O2 Flow FiO2 Mean Ox Delivery Rate 01/16 0838 170/110 01/15 0705 98.7 76 20 160/100 93 Room Air 01/14 2309 160/100 01/14 2229 84 182/110 01/14 2206 98.1 74 20 182/110 93 Room Air 01/14 1534 Room Air 01/14 1424 98.4 73 20 158/84 94 Room Air Intake & Output 01/15 1600 01/15 0800 01/15 0000 Intake Total 110 650 Output Total 175 Balance -65 650 Intake, IV 10 Intake, Oral 100 650 Output, Urine 175 Patient 272 lb Weight Weight Bed scale Measurement Method Vital Signs Date Time Temp Pulse Resp B/P B/P Pulse O2 O2 Flow FiO2 Mean Ox Delivery Rate 01/15 0838 170/110 04/08 0705 98.7 76 20 160/100 93 Room Air 01/14 2309 160/100 01/14 2229 84 182/110 01/14 220 98.1 74 20 182/110 93 Room Air 01/14 1534 Room Air 01/14 1424 98.4 73 20 158/84 94 Room Air Intake & Output 01/15 1600 01/15 0800 01/15 0000 Intake Total 110 650 Output Total 175 Balance -65 650 Intake, IV 10 Intake, Oral 100 650 Output, Urine 175 Patient 272 lb Weight Weight Bed scale Measurement Method Physical Exam General Appearance: alert, awake, comfortable Head: normal appearance Neck: normal inspection Cardiovascular: regular rate/rhythm Extremities: normal inspection Current Medications: Current Medications Sig/Glenda Start time Last Medication Dose Route Stop Time Status Admin Acetaminophen 325 MG Q6P PRN 01/14 0345 AC PO Albuterol Sulfate 3 ML ONCE ONE 01/15 0315 DC 01/15 INH 01/15 0316 0314 Aspirin 81 MG DAILY 01/14 1000 AC 01/15 PO 0839 Atorvastatin Calcium 40 MG DAILY 01/14 1000 AC 01/14 PO 0843 Azithromycin 250 MG DAILY 01/15 1000 AC PO 01/18 1001 Azithromycin 500 MG 0500 01/14 0315 DC 01/14 Dextrose/Water 250 ML IV 0602 Glycerin 2 SPRAY Q2P PRN 01/15 0245 AC 01/15 PO 0323 Heparin Sodium 5,000 UNIT Q8 01/14 0600 AC 01/15 (Porcine) SC 0535 Insulin Aspart 0 AT BEDTIME 01/14 2200 01/14 CA 2128 Insulin Aspart 8 UNITS ONCE ONE 01/14 1145 DC 01/14 SC 01/14 1146 1142 Insulin Aspart 0 TIDAC 01/14 0800 AC 01/15 SC 0839 Insulin Detemir 8 UNITS BID 01/14 220 DC CA Insulin Detemir 15 UNITS BID 01/14 2200 AC 01/15 SC 0839 Lisinopril 10 MG DAILY 01/15 1000 AC PO Metoprolol Tartrate 25 MG BID 01/14 2214 AC 01/15 PO 0838 Morphine Sulfate 2 MG ONCE ONE 01/15 0345 DC 01/15 IV 01/15 0346 0404 Oxycodone/ 1 TAB Q6P PRN 01/14 0345 AC 01/15 Acetaminophen PO 0842 Tramadol HCl 50 MG Q6 PRN 01/14 0345 AC 01/14 PO 2133 Findings Pertinent Lab/Jose Results: Laboratory Tests 01/15 01/15 0647 0138 Chemistry Sodium (137 - 145 mmol/L) 137 Potassium (3.5 - 5.1 mmol/L) 4.1 Chloride (98 - 107 mmol/L) 101 Carbon Dioxide (22 - 30 mmol/L) 26 Anion Gap (5 - 16) 10 BUN (9 - 20 mg/dL) 10 Creatinine (0.7 - 1.2 mg/dL) 0.5 L Estimated GFR (>60 ml/min) > 60 BUN/Creatinine Ratio (7 - 25 %) 20.0 Hematology CBC w Diff NO MAN DIFF REQ WBC (4.8 - 10.8 /CUMM) 9.2 RBC (4.70 - 6.10 /CUMM) 4.82 Hgb (14.0 - 18.0 G/DL) 14.8 Hct (42 - 52 %) 44.0 MCV (80.0 - 94.0 FL) 91.4 MCH (27.0 - 31.0 PG) 30.8 MCHC (33.0 - 37.0 G/DL) 33.6 RDW (11.5 - 14.5 %) 13.7 Plt Count (130 - 400 /CUMM) 290 MPV (7.4 - 10.4 FL) 8.8 Gran % (42.2 - 75.2 %) 54.2 Lymphocytes % (20.5 - 51.1 %) 36.8 Monocytes % (1.7 - 9.3 %) 6.7 Eosinophils % (0 - 5 %) 2.1 Basophils % (0.0 - 2.0 %) 0.2 Absolute Granulocytes (1.4 - 6.5 /CUMM) 5.0 Absolute Lymphocytes (1.2 - 3.4 /CUMM) 3.4 Absolute Monocytes (0.10 - 0.60 /CUMM) 0.6 Absolute Eosinophils (0.0 - 0.7 /CUMM) 0.2 Absolute Basophils (0.0 - 0.2 /CUMM) 0 Toxicology Urine Opiates Screen (>2000 NG/ML) < 100 Methadone Screen (>300 NG/ML) < 40 Barbiturate Screen (>200 NG/ML) < 60 Ur Phencyclidine Scrn (>25 NG/ML) < 6.00 Amphetamines Screen (>1000 NG/ML) < 100 U Benzodiazepines Scrn (>200 NG/ML) < 85 Urine Cocaine Screen (>300 NG/ML) < 50 Urine Cannabis Screen (>50 NG/ML) < 5.00 Urines Urine Color (YEL,AMB,STR) YEL Urine Clarity (CLEAR) CLEAR Urine pH (5.0 - 8.0) 6.0 Ur Specific [place] (1.001 - 1.035) 1.015 Urine Protein (NEG,<30 MG/DL) NEG Urine Ketones (NEG) NEG Urine Nitrite (NEG) NEG Urine Bilirubin (NEG) NEG Urine Urobilinogen (0.1 - 1.0 EU/dl) 0.2 Ur Leukocyte Esterase (NEG) NEG Ur Microscopic SEDIMENT EXAMINED Urine RBC (0 - 5 /HPF) 5-10 H Urine WBC (0 - 2 /HPF) 1-3 H Ur Epithelial Cells (NONE,FEW) FEW Urine Bacteria (NEG/NONE) MOD H Urine Hemoglobin (NEG) TRACE-LYSED H Urine Glucose (N MG/DL) >=1000 H 01/14 01/14 01/13 1732 0555 2237 Chemistry Sodium (137 - 145 mmol/L) 135 L Potassium (3.5 - 5.1 mmol/L) 3.7 Chloride (98 - 107 mmol/L) 102 Carbon Dioxide (22 - 30 mmol/L) 25 Anion Gap (5 - 16) 8 BUN (9 - 20 mg/dL) 12 Creatinine (0.7 - 1.2 mg/dL) 0.5 L Estimated GFR (>60 ml/min) > 60 BUN/Creatinine Ratio (7 - 25 %) 24.0 Glucose (65 - 99 mg/dL) 344 H Hemoglobin A1c (4.2 - 5.8 %) Pending Calcium (8.4 - 10.2 mg/dL) 8.6 Total Bilirubin (0.2 - 1.3 mg/dL) 0.4 Direct Bilirubin (< 0.4 mg/dL) 0.4 AST (17 - 59 U/L) 19 ALT (21 - 72 U/L) 36 Alkaline Phosphatase (< 127 U/L) 151 H Troponin I (<0.11 ng/ml) < 0.01 < 0.01 < 0.01 Total Protein (6.3 - 8.2 g/dL) 5.2 L Albumin (3.5 - 5.0 g/dL) 3.0 L Triglycerides (<150 mg/dL) 232 H Cholesterol (< 200 MG/DL) 167 LDL Cholesterol, Calc (65 - 129 mg/dL) 81 HDL Cholesterol (40 - 60 mg/dL) 40 Cholesterol/HDL Ratio (0.00 - 4.88 %) 4 Amylase (30 - 110 U/L) < 30 L Lipase (23 - 300 U/L) 91 TSH (0.270 - 4.200 uIU/mL) 1.480 Thyroxine (T4) (4.5 - 10.9 ug/dL) 9.8 Total T3 (0.97 - 1.69 ng/mL) 1.28 04/06 2200 Coagulation PT (9.4 - 12.5 SEC) 9.5 INR (0.90 - 1.17) 0.87 L APTT (25 - 37 SEC) 26 D-Dimer High Sensitivty (0 - 243 ng/ml) < 200 Hematology CBC w Diff NO MAN DIFF REQ WBC (4.8 - 10.8 /CUMM) 12.1 H RBC (4.70 - 6.10 /CUMM) 4.87 Hgb (14.0 - 18.0 G/DL) 14.8 Hct (42 - 52 %) 44.0 MCV (80.0 - 94.0 FL) 90.3 MCH (27.0 - 31.0 PG) 30.5 MCHC (33.0 - 37.0 G/DL) 33.8 RDW (11.5 - 14.5 %) 14.1 Plt Count (130 - 400 /CUMM) 296 MPV (7.4 - 10.4 FL) 8.6 Gran % (42.2 - 75.2 %) 71.3 Lymphocytes % (20.5 - 51.1 %) 20.1 L Monocytes % (1.7 - 9.3 %) 6.3 Eosinophils % (0 - 5 %) 1.8 Basophils % (0.0 - 2.0 %) 0.5 Absolute Granulocytes (1.4 - 6.5 /CUMM) 8.6 H Absolute Lymphocytes (1.2 - 3.4 /CUMM) 2.4 Absolute Monocytes (0.10 - 0.60 /CUMM) 0.8 H Absolute Eosinophils (0.0 - 0.7 /CUMM) 0.2 Absolute Basophils (0.0 - 0.2 /CUMM) 0.1
--- NOTE | 2018-01-15 10:07 | PN- Cardiology ---
See Addendum Subjective Subjective: The patient noted intermittent mild chest discomfort overnight, and he is now pain-free. No shortness of breath. No palpitations. No diaphoresis. He continues to be unsure what his catheterization showed at [facility] in 2014, however he does not recall being told that a stent was placed. He continues to be a poor historian, and he has poor insight into the need to follow-up for his diabetes mellitus and cardiovascular issues. Objective Vital Signs and I&Os Vital Signs Date Time Temp Pulse Resp B/P B/P Pulse O2 O2 Flow FiO2 Mean Ox Delivery Rate 01/15 838 170/110 01/15 0705 98.7 76 20 160/100 93 Room Air 01/14 2309 160/100 01/14 2229 84 182/110 01/14 2206 98.1 74 20 182/110 93 Room Air 01/14 1534 Room Air 01/14 1424 98.4 73 20 158/84 94 Room Air Intake & Output 01/15 1600 01/15 0000 01/14 1600 01/14 0000 Intake Total 110 650 500 0 Output Total 175 300 Balance -65 650 200 0 Intake, IV 10 Intake, Oral 100 650 500 0 Output, Urine 175 300 Patient 272 lb 260 lb 265 lb Weight Weight Bed scale Reported by Patient Measurement Method Physical Exam: Gen: NAD HEENT: normal Lungs: clear to auscultation, normal resp. effort Heart: RRR, S1, S2, no murmurs Abdomen: Soft, nontender, no masses Extremities: 1+ edema Neuro: Alert and oriented x 3, cranial nerves intact Current Medications: Current Medications Sig/Glenda Start time Last Medication Dose Route Stop Time Status Admin Acetaminophen 325 MG Q6P PRN 01/14 0345 AC PO Albuterol Sulfate 3 ML ONCE ONE 01/15 031 DC 01/15 INH 01/15 031 0314 Aspirin 81 MG DAILY 01/14 1000 AC 01/15 PO 0839 Atorvastatin Calcium 40 MG DAILY 01/14 1000 AC 01/14 PO 0843 Azithromycin 250 MG DAILY 01/15 1000 AC PO 01/18 1001 Azithromycin 500 MG 0500 01/14 0315 DC 01/14 Dextrose/Water 250 ML IV 0602 Glycerin 2 SPRAY Q2P PRN 01/15 0245 AC 01/15 PO 0323 Heparin Sodium 5,000 UNIT Q8 01/14 0600 AC 01/15 (Porcine) [place] 0535 Insulin Aspart 0 AT BEDTIME 01/14 2200 AC 01/14 [place] 2128 Insulin Aspart 8 UNITS ONCE ONE 01/14 1145 DC 01/14 SC 01/14 1146 1142 Insulin Aspart 0 TIDAC 01/14 0800 AC 01/15 [place] 0839 Insulin Detemir 8 UNITS BID 01/14 2200 DC SC Insulin Detemir 15 UNITS BID 01/14 2200 AC 01/15 SC 0839 Lisinopril 10 MG DAILY 01/15 1000 AC PO Metoprolol Tartrate 25 MG BID 01/14 2214 AC 01/15 PO 0838 Morphine Sulfate 2 MG ONCE ONE 01/15 0345 DC 01/15 IV 01/15 0346 0404 Oxycodone/ 1 TAB Q6P PRN 01/14 034 AC 01/15 Acetaminophen PO 0842 Tramadol HCl 50 MG Q6 PRN 01/14 034 AC 01/14 PO 2133 Results Last 48 Hrs of Labs/Mics: Laboratory Tests 01/15/18 0625: Anion Gap 10, Estimated GFR > 60, BUN/Creatinine Ratio 20.0, CBC w Diff NO MAN DIFF REQ, RBC 4.82, MCV 91.4, MCH 30.8, MCHC 33.6, RDW 13.7, MPV 8.8, Gran % 54.2, Lymphocytes % 36.8, Monocytes % 6.7, Eosinophils % 2.1, Basophils % 0.2, Absolute Granulocytes 5.0, Absolute Lymphocytes 3.4, Absolute Monocytes 0.6, Absolute Eosinophils 0.2, Absolute Basophils 0 01/15/18 0135: Urine Opiates Screen < 100, Methadone Screen < 40, Barbiturate Screen < 60, Ur Phencyclidine Scrn < 6.00, Amphetamines Screen < 100, U Benzodiazepines Scrn < 85, Urine Cocaine Screen < 50, Urine Cannabis Screen < 5.00, Urine Color YEL, Urine Clarity CLEAR, Urine pH 6.0, Ur Specific [place] 1.015, Urine Protein NEG, Urine Ketones NEG, Urine Nitrite NEG, Urine Bilirubin NEG, Urine Urobilinogen 0.2, Ur Leukocyte Esterase NEG, Ur Microscopic SEDIMENT EXAMINED, Urine RBC 5-10 H, Urine WBC 1-3 H, Ur Epithelial Cells FEW, Urine Bacteria MOD H, Urine Hemoglobin TRACE-LYSED H, Urine Glucose >=1000 H 01/14/18 1732: Troponin I < 0.01 01/14/18 0555: Troponin I < 0.01, Triglycerides 232 H, Cholesterol 167, LDL Cholesterol, Calc 81, HDL Cholesterol 40, Cholesterol/HDL Ratio 4, TSH 1.480, Thyroxine (T4) 9.8, Total T3 1.28 01/13/18 2237: Anion Gap 8, Estimated GFR > 60, BUN/Creatinine Ratio 24.0, Glucose 344 H, Hemoglobin A1c Pending, Calcium 8.6, Total Bilirubin 0.4, Direct Bilirubin 0.4, AST 19, ALT 36, Alkaline Phosphatase 151 H, Troponin I < 0.01, Total Protein 5.2 L, Albumin 3.0 L, Amylase < 30 L, Lipase 91 01/13/182199: PT 9.5, INR 0.87 L, APTT 26, D-Dimer High Sensitivty < 200, CBC w Diff NO MAN DIFF REQ, RBC 4.87, MCV 90.3, MCH 30.5, MCHC 33.8, RDW 14.1, MPV 8.6, Gran % 71.3, Lymphocytes % 20.1 L, Monocytes % 6.3, Eosinophils % 1.8, Basophils % 0.5 , Absolute Granulocytes 8.6 H, Absolute Lymphocytes 2.4, Absolute Monocytes 0.8 H, Absolute Eosinophils 0.2, Absolute Basophils 0.1 Microbiology 01/13 2200 NASOPHARYN: Influenza Virus A & B Rapid Smear - COMP Assessment/Plan Assessment/Plan Assessment: 1. Diabetes mellitus 2. History of GI 3. History of myocardial 4. History of cardiac catheterization with unknown result. 5. Noncompliance Plan: * Increase lisinopril to 20 mg daily * Continue atorvastatin * Continue metoprolol * Continue aspirin * Please obtain cardiac catheterization results from [facility] * N.p.o. after midnight * Exercise nuclear stress test tomorrow * Echocardiogram pending Continue telemetry? Yes
--- NOTE | 2018-01-15 11:48 | PN- Att Addend ---
Attending Addendum Attending Brief Note Attending MD Statement: examined this patient, discuss w/resident/PA/BILLING SERVICES MANAGER, agreed w/resident/PA/BILLING SERVICES MANAGER, reviewed EMR data (avail) Attending Assessment/Plan: Patient reports that his chest pain is much improved. He continues to have a mild the chest pain. He has mild cough. Chest exam shows slight scattered expiratory wheezing. Patient appears comfortable and is able to ambulate without any difficulty. His vital signs show that his blood pressure was elevated up to 182/110. Otherwise vital signs are stable. Room air saturation 94%. 3 troponins have been negative. Triglyceride level 232. CBC and chemistry labs today are within normal limits. Chest x-ray on admission report shows bronchial wall thickening. Assessment plan Chest pain Suspected acute bronchitis morbid Obesity Plan Plan out of for stress test tomorrow Nothing by mouth post midnight Following the endocrinology recommendations Continue oral azithromycin total of 5 days Check BNP level Continue TRC and nebulizer treatment Patient may need a short course of steroids if wheezing does not improve
[2018-01-15 13:45] VITALS: BP 180/100
[2018-01-15 22:01] VITALS: BP 148/80
[2018-01-16 07:01] VITALS: BP 156/110
--- NOTE | 2018-01-16 07:52 | PN- Housestaff ---
[address] 01/16/18 0752: Subjective Follow-up For: Per problem list in AP Tele-Events Since Last Visit: SB/NSR 46-65 Subjective: No overnight event. Patient was scheduled for stress test this AM, and had been kept NPO overnight. Patient did not sleep well due to his chronic back pain. He requested to increase on pain meds after he's done with stress test today. No other specific complaint. Review of Systems Constitutional: Reports: see HPI. Objective Last 24 Hrs of Vital Signs/I&O Vital Signs Date Time Temp Pulse Resp B/P B/P Pulse O2 O2 Flow FiO2 Mean Ox Delivery Rate 01/16 0701 98.2 66 12 156/110 94 Room Air 01/15 2201 98.0 74 20 148/80 93 Room Air 01/15 2200 91 Room Air 01/15 2127 72 148/80 01/15 1541 180/100 01/15 1345 98.2 66 20 180/100 93 Room Air 01/15 1104 180/104 01/15 1045 94 Room Air 01/15 0838 170/110 Intake & Output 01/16 1600 01/16 0800 01/16 0000 Intake Total 110 680 Output Total Balance 110 680 Intake, IV 10 Intake, Oral 100 680 Patient 120.315 kg Weight Weight Bed scale Measurement Method Physical Exam General Appearance: Alert, Oriented X3, Cooperative, No Acute Distress Cardiovascular: Regular Rate Lungs: Clear to Auscultation, Normal Air Movement Abdomen: Soft, No Tenderness, No Hepatospenomegaly Neurological: Normal Gait, Normal Speech, Strength at 5/5 X4 Ext Extremities: No Edema, Normal Pulses Current Medications: Current Medications Sig/Glenda Start time Last Medication Dose Route Stop Time Status Admin Acetaminophen 325 MG Q6P PRN 01/14 0345 AC PO Albuterol Sulfate 3 ML Q4P PRN 01/15 1130 AC INH Aspirin 81 MG DAILY 01/14 1000 AC 01/15 PO 0839 Atorvastatin Calcium 40 MG DAILY 01/14 1000 AC 01/15 PO 1104 Azithromycin 250 MG DAILY 01/15 1000 AC 01/15 PO 01/18 1001 1104 Dextrose/Sodium 1,000 ML Q13H 01/15 2300 AC 01/15 Chloride IV 01/16 1159 2303 Glycerin 2 SPRAY Q2P PRN 01/15 0245 AC 01/15 PO 0323 Heparin Sodium 5,000 UNIT Q8 01/14 0600 AC 01/16 (Porcine) DE 0553 Insulin Aspart 0 Q4H 01/16 0400 AC 01/16 DE 0419 Insulin Aspart 0 Q4 01/16 0200 [facility] Insulin Aspart 0 EVERY FOUR HOURS 01/15 2200 DC 01/15 DE 2128 Insulin Aspart 0 AT BEDTIME 01/14 2200 DC 01/14 DE 2128 Insulin Aspart 0 TIDAC 01/14 0800 DC 01/15 DE 01/15 2059 1703 Insulin Detemir 15 UNITS BID 01/14 2200 AC 01/15 DE 2127 Insulin Human Regular 0 Q6 01/16 0017 DC 01/16 SC 0026 Lidocaine 1 CINTIA ONCE ONE 01/16 0045 DC 01/16 TOP 01/16 0046 0059 Lisinopril 20 MG DAILY 01/16 1000 AC PO Lisinopril 10 MG ONCE ONE 01/15 1400 DC 01/15 PO 01/15 1401 1541 Lisinopril 10 MG DAILY 01/15 1000 DC 01/15 PO 1104 Metoprolol Tartrate 25 MG BID 01/14 2214 AC 01/15 PO 2127 Oxycodone/ 1 TAB ONCE ONE 01/16 0030 DC 01/16 Acetaminophen PO 01/16 0031 0037 Oxycodone/ 1 TAB Q6P PRN 01/14 0345 AC 01/16 Acetaminophen PO 0419 Tramadol HCl 50 MG Q6 PRN 01/14 0345 AC 01/16 PO 0024 Last 24 Hrs of Lab/Jose Results Last 24 Hrs of Labs/Mics: Laboratory Tests 01/16/18 0720: Sodium Pending, Potassium Pending, Chloride Pending, Carbon Dioxide Pending, Anion Gap Pending, BUN Pending, Creatinine Pending, BUN/Creatinine Ratio Pending 01/16/18 0420: Urine Color YEL, Urine Clarity CLEAR, Urine pH 6.0, Ur Specific [place] >= 1.030 , Urine Protein NEG, Urine Ketones NEG, Urine Nitrite NEG, Urine Bilirubin NEG, Urine Urobilinogen 0.2, Ur Leukocyte Esterase NEG, Ur Microscopic EXAM NOT REQUIRED, Urine Hemoglobin NEG, Urine Glucose >=1000 H Assessment/Plan Assessment: Mr Haq is a 52 year old man w/ a PMHx of CAD s/p PCI, hypertension, hyperlipidemia, history of myocardial infarction treated at [facility] and underwent catheterization, CVA status post TPA in 2014, unprovoked DVT (5 years ago) came to the hospital with a chief concern of chest pain, severity 7/10, associated with dizziness. He also had a chief concern of cough and 4 days. No fever. Similar symptoms 1 month ago. At the time of [id number] 98.2, pulse rate 96, respiration 24, blood pressure 167/95, pulse ox 96% on room air. General Exam: AAOx3, No acute distress, Skin: No rashes, no breakdown;HEENT: PERRLA, EOMI;Neck: Supple, No JVD ;No cervical lymphadenopathy;CVS: Reg Rate, Normal S1,S2, No MGR;Resp: Decreased air entry, bilateral rales;Abdomen: Soft, No tenderness, Normal Bowel Sounds;Neuro: Normal Speech, Strength 5/5 b/l x 4 extremities, Sensation intact, CN III-XII NL, Reflexes 2+;Extremities: No cyanosis, no pedal edema. Pertinent Findings: WBC 12.1, hemoglobin 14.8, hematocrit 44.0, MCV 90.3, platelets 296. Sodium 135 , potassium 3.7, BUN 12, creatinine 0.5, glucose 344, liver chemistries-AST 19, ALT 36, alkaline phosphatase 151 (elevated), cardiac enzymes-troponin I-0.01, INR 0.87,INR 0.87, d-dimer less than 200. Chest r-igr-butmkyst no consolidation however had bronchial wall thickening likely from viral infection. Head CT revealed no acute intracranial pathology. Echocardiogram done 01/07/2017 revealed Normal size left ventricle. Severe concentric left ventricular hypertrophy. No obvious regional wall motion abnormalities. Normal left ventricular ejection fraction visually estimated at > 65%. "pseudonormal" filling pattern of the left ventricle for age (stage 2 diastolic dysfunction). Normal right ventricular size and function. Normal atrial size. Trace mitral regurgitation. etiology in this case is likely unstable angina w/o elevated cardiac enzymes with positive cardiac risk factors smoking/age > 35/HLD/DM/HTN. Other etiologies such as anxiety,aortic dissection, GERD, coronary artery spasm or PE are to considered as differentials. In regards to his diabetes, he should be started on Levemir, and short-acting insulin. Problem list: # unstable angina # history of diabetes # history of TIA # history of hypertension # history of DVT #Hx of Chronic back pain Plan: - continue telemetry for cardiac monitoring - continue daily aspirin and statin - serial electrocardiograms, cardiac enzymes every 8 hours had been negative x 2 - sublingual nitroglycerin for pain control(hold for low BP) - Pending stress test this morning. - metoprolol 25 mg by mouth bid. paitient negative on urine tox for cocaine.. - IV heparin after conferring with cardiology, if needed. - echocardiogram - lipid profile revealed hyperTG - PO azithromycin for the treatment of bronchitis, currently day 2 - Endocrinology consult appreciated ,insulin SS adjusted. - Currently on Percocet 5mg q6PRN and Tramadol 50mg q6PRN for pain control of CBP Housekeeping: #1 DVT prophylaxis-heparin subcutaneous Full code. Problem List: 1. Chest pain Pain Ratin Pain Location: Back pain Pain Goal: Pain 7 or less Pain Plan: see AP Tomorrow's Labs & Rationales: CBC/BEP ChristyMarilia 01/16/18 1020: Attending MD Review Statement Attending Statement Attending MD Statement: examined this patient, discuss w/resident/PA/CELLULAR BIOLOGIST, agreed w/resident/PA/CELLULAR BIOLOGIST, discussed with family, reviewed EMR data (avail), discussed with nursing, discussed with case mgmt, reviewed images, amended to note Attending Assessment/Plan: 52 o/m with atypical chest pain in high risk patient and accelrated hypertension. Patient admitted to telemetry monitoring. Cardiology consulted, plan for stress test as per cardiology. Continue with antiplatelet therapy. statin. gi/dvt prophyalxis full code.
--- NOTE | 2018-01-16 07:55 | PN- Diabetes ---
Assessment/Plan Diabetes Assessment: The patient is n.p.o. after midnight last night in preparation for a stress test this morning. His sugar was 176. He states he wants to eat. Plan: Suggest to hold his morning his Levemir. Also reduce his sliding scale NovoLog every 4 hours while n.p.o. to start with 2 units for his sugar greater than 150. Sliding scale NovoLog every 4 hours while n.p.o. should be less than 150 give no insulin, 151-200 give 2 units NovoLog, 201-250 give 3 units NovoLog, 251-300 give 4 units NovoLog, 301-350 give 5 units NovoLog, 351-400 give 6 units NovoLog Continue to keep glucose in the IV while n.p.o. with D5 half-normal saline at 75 cc/h. When the patient resumes his diet resume his usual insulin Subjective Subjective: Feels hungry Objective Last 24 Hrs of Vital Signs/I&O Vital Signs Date Time Temp Pulse Resp B/P B/P Pulse O2 O2 Flow FiO2 Mean Ox Delivery Rate 01/16 0701 98.2 66 12 156/110 94 Room Air 01/15 2201 98.0 74 20 148/80 93 Room Air 01/15 2200 91 Room Air 01/15 2127 72 148/80 04/08 1541 180/100 04/08 1345 98.2 66 20 180/100 93 Room Air 01/15 1104 180/104 04/08 1045 94 Room Air 01/15 0838 170/110 Intake & Output 01/17 0800 04 0000 01/15 1600 Intake Total 110 680 Output Total Balance 110 680 Intake, IV 10 Intake, Oral 100 680 Patient 265 lb Weight Weight Bed scale Measurement Method Vital Signs Date Time Temp Pulse Resp B/P B/P Pulse O2 O2 Flow FiO2 Mean Ox Delivery Rate 01/16 0701 98.2 66 12 156/110 94 Room Air 01/15 2201 98.0 74 20 148/80 93 Room Air 01/15 2200 91 Room Air 01/157 72 148/80 04/08 1541 180/100 04/08 1345 98.2 66 20 180/100 93 Room Air 04/08 1104 180/104 04/08 1045 94 Room Air 01/15 0838 170/110 Intake & Output 01/16 0800 04/ 0000 04/08 1600 Intake Total 110 680 Output Total Balance 110 680 Intake, IV 10 Intake, Oral 100 680 Patient 265 lb Weight Weight Bed scale Measurement Method Current Medications: Current Medications Sig/Glenda Start time Last Medication Dose Route Stop Time Status Admin Acetaminophen 325 MG Q6P PRN 01/14 0345 AC PO Albuterol Sulfate 3 ML Q4P PRN 01/15 1130 AC INH Aspirin 81 MG DAILY 01/14 1000 AC 01/15 PO 0839 Atorvastatin Calcium 40 MG DAILY 01/14 1000 AC 01/15 PO 1104 Azithromycin 250 MG DAILY 01/15 1000 AC 01/15 PO 01/18 1001 1104 Dextrose/Sodium 1,000 ML Q13H 01/15 2300 AC 01/15 Chloride IV 01/16 1159 2303 Glycerin 2 SPRAY Q2P PRN 01/15 0245 AC 01/15 PO 0323 Heparin Sodium 5,000 UNIT Q8 01/14 0600 01/16 (Porcine) [place] 0553 Insulin Aspart 0 Q4H 01/16 0400 01/16 [place] 0419 Insulin Aspart 0 Q4 01/16 0200 [facility] Insulin Aspart 0 EVERY FOUR HOURS 01/15 2200 [place] 01/15 [place] 2128 Insulin Aspart 0 AT BEDTIME 01/14 2200 [place] 01/14 [place] 2128 Insulin Aspart 0 TIDAC 01/14 0800 MN 01/15 [place] 01/15 2059 1703 Insulin Detemir 15 UNITS BID 01/14 2200 01/15 [place] 2127 Insulin Human Regular 0 Q6 01/16 0017 [place] 01/16 [place] 0026 Lidocaine 1 CINTIA ONCE ONE 01/16 0045 DC 01/16 TOP 01/16 0046 0059 Lisinopril 20 MG DAILY 01/16 1000 AC PO Lisinopril 10 MG ONCE ONE 01/15 1400 DC 01/15 PO 01/15 1401 1541 Lisinopril 10 MG DAILY 01/15 1000 DC 01/15 PO 1104 Metoprolol Tartrate 25 MG BID 01/14 2214 AC 01/15 PO 2127 Oxycodone/ 1 TAB ONCE ONE 01/16 0030 DC 01/16 Acetaminophen PO 01/16 0031 0037 Oxycodone/ 1 TAB Q6P PRN 01/14 0345 AC 01/16 Acetaminophen PO 0419 Tramadol HCl 50 MG Q6 PRN 01/14 0345 AC 01/16 PO 0024 Findings Pertinent Lab/Jose Results: Laboratory Tests 01/16 01/16 0720 5130 Chemistry Sodium Pending Potassium Pending Chloride Pending Carbon Dioxide Pending Anion Gap Pending BUN Pending Creatinine Pending BUN/Creatinine Ratio Pending Urines Urine Color (YEL,AMB,STR) YEL Urine Clarity (CLEAR) CLEAR Urine pH (5.0 - 8.0) 6.0 Ur Specific [place] (1.001 - 1.035) >= 1.030 Urine Protein (NEG,<30 MG/DL) NEG Urine Ketones (NEG) NEG Urine Nitrite (NEG) NEG Urine Bilirubin (NEG) NEG Urine Urobilinogen (0.1 - 1.0 EU/dl) 0.2 Ur Leukocyte Esterase (NEG) NEG Ur Microscopic EXAM NOT REQUIRED Urine Hemoglobin (NEG) NEG Urine Glucose (N MG/DL) >=1000 H 01/15 01/15 0625 0135 Chemistry Sodium (137 - 145 mmol/L) 137 Potassium (3.5 - 5.1 mmol/L) 4.1 Chloride (98 - 107 mmol/L) 101 Carbon Dioxide (22 - 30 mmol/L) 26 Anion Gap (5 - 16) 10 BUN (9 - 20 mg/dL) 10 Creatinine (0.7 - 1.2 mg/dL) 0.5 L Estimated GFR (>60 ml/min) > 60 BUN/Creatinine Ratio (7 - 25 %) 20.0 Hematology CBC w Diff NO MAN DIFF REQ WBC (4.8 - 10.8 /CUMM) 9.2 RBC (4.70 - 6.10 /CUMM) 4.82 Hgb (14.0 - 18.0 G/DL) 14.8 Hct (42 - 52 %) 44.0 MCV (80.0 - 94.0 FL) 91.4 MCH (27.0 - 31.0 PG) 30.8 MCHC (33.0 - 37.0 G/DL) 33.6 RDW (11.5 - 14.5 %) 13.7 Plt Count (130 - 400 /CUMM) 290 MPV (7.4 - 10.4 FL) 8.8 Gran % (42.2 - 75.2 %) 54.2 Lymphocytes % (20.5 - 51.1 %) 36.8 Monocytes % (1.7 - 9.3 %) 6.7 Eosinophils % (0 - 5 %) 2.1 Basophils % (0.0 - 2.0 %) 0.2 Absolute Granulocytes (1.4 - 6.5 /CUMM) 5.0 Absolute Lymphocytes (1.2 - 3.4 /CUMM) 3.4 Absolute Monocytes (0.10 - 0.60 /CUMM) 0.6 Absolute Eosinophils (0.0 - 0.7 /CUMM) 0.2 Absolute Basophils (0.0 - 0.2 /CUMM) 0 Toxicology Urine Opiates Screen (>2000 NG/ML) < 100 Methadone Screen (>300 NG/ML) < 40 Barbiturate Screen (>200 NG/ML) < 60 Ur Phencyclidine Scrn (>25 NG/ML) < 6.00 Amphetamines Screen (>1000 NG/ML) < 100 U Benzodiazepines Scrn (>200 NG/ML) < 85 Urine Cocaine Screen (>300 NG/ML) < 50 Urine Cannabis Screen (>50 NG/ML) < 5.00 Urines Urine Color (YEL,AMB,STR) YEL Urine Clarity (CLEAR) CLEAR Urine pH (5.0 - 8.0) 6.0 Ur Specific [place] (1.001 - 1.035) 1.015 Urine Protein (NEG,<30 MG/DL) NEG Urine Ketones (NEG) NEG Urine Nitrite (NEG) NEG Urine Bilirubin (NEG) NEG Urine Urobilinogen (0.1 - 1.0 EU/dl) 0.2 Ur Leukocyte Esterase (NEG) NEG Ur Microscopic SEDIMENT EXAMINED Urine RBC (0 - 5 /HPF) 5-10 H Urine WBC (0 - 2 /HPF) 1-3 H Ur Epithelial Cells (NONE,FEW) FEW Urine Bacteria (NEG/NONE) MOD H Urine Hemoglobin (NEG) TRACE-LYSED H Urine Glucose (N MG/DL) >=1000 H 01/14 1732 Chemistry Troponin I (<0.11 ng/ml) < 0.01
[2018-01-16 09:05] VITALS: BP 156/110
[2018-01-16] MEDS ORDERED: ASPIRIN81 M4 PO ×2 (10:23→11:15)
--- NOTE | 2018-01-16 10:27 | Patient Discharge Instructions ---
Discharge Instructions General Discharge Information Special Instructions: - Please follow up with your inventory planner Dr. Chavez within a week for your stress test and echocardiography. - Please follow up with your primary care physician within 1-2 weeks of discharge. Inform your primary care physician of this admission to [facility]. - Continue your current medications per discharge instructions. - Please watch for these problems: Fever, Chills, Nausea, Vomiting, Shortness of Breath, Productive Cough, Chest Pain/Discomfort, Abdominal Pain, Active Bleeding or Bloody urine/stool. Diet Continue normal diet: Yes Recommended Diet: Heart Healthy Activity Full Activity/No Limits: Yes Acute Coronary Syndrome Inclusion Criteria At DC or during hospital stay patient has or had the following: ACS DIAGNOSIS No Discharge Core Measures Meds if any: Prescribed or Continued at Discharge Meds if any: NOT Prescribed or Continued at Discharge Congestive Heart Failure Inclusion Criteria At DC or during hospital stay patient has or had the following: CHF DIAGNOSIS No Discharge Core Measures Meds if any: Prescribed or Continued at Discharge Meds if any: NOT Prescribed or Continued at Discharge Cerebrovascular accident Inclusion Criteria At DC or during hospital stay patient has or had the following: CVA/TIA Diagnosis No Discharge Core Measures Meds if any: Prescribed or Continued at Discharge Meds if any: NOT Prescribed or Continued at Discharge Venous thromboembolism Inclusion Criteria VTE Diagnosis No VTE Type NONE VTE Confirmed by (Test) NONE Discharge Core Measures - Per Current guidelines, there needs to be overlap - treatment for the first 5 days of Warfarin therapy. - If discharged on Warfarin prior to 5 days of - overlap therapy, the patient will need to be - assessed for post discharge needs including - *Post discharge parental anticoagulation - *Warfarin and/or parental anticoagulation education - *Follow up date to check INR post discharge At least 5 days overlap therapy as Inpatient No Meds if any: Prescribed or Continued at Discharge Note: Overlap Therapy is Warfarin and Anticoagulant Meds if any: NOT Prescribed or Continued at Discharge
--- NOTE | 2018-01-16 10:29 | Discharge Summary ---
Visit Information Visit Dates Admission Date: 01/14/18 Discharge Date: 01/16/2018 Hospital Course Course Attending Physician: Marilia Harrison MD Primary Care Physician: Erick CATALAN,Brenton Fowler Hospital Course: Mr. Haq is a 52 year old man w/ a PMHx of CAD s/p PCI, hypertension, hyperlipidemia, history of myocardial infarction treated at [facility] and underwent catheterization, CVA status post TPA in 2014, unprovoked DVT (5 years ago) came to the hospital with a chief concern of chest pain, severity 7/10, associated with dizziness. He also had a chief concern of cough and 4 days. No fever. Similar symptoms 1 month ago prior this admission. At the time of admission vitals-temperature 98.2, pulse rate 96, respiration 24, blood pressure 167/95, pulse ox 96% on room air. General Exam: AAOx3, No acute distress, Skin: No rashes, no breakdown;HEENT: PERRLA, EOMI;Neck: Supple, No JVD ;No cervical lymphadenopathy;CVS: Reg Rate, Normal S1,S2, No MGR;Resp: Decreased air entry, bilateral rales;Abdomen: Soft, No tenderness, Normal Bowel Sounds;Neuro: Normal Speech, Strength 5/5 b/l x 4 extremities, Sensation intact, CN III-XII NL, Reflexes 2+;Extremities: No cyanosis, no pedal edema. Pertinent Findings: WBC 12.1, hemoglobin 14.8, hematocrit 44.0, MCV 90.3, platelets 296. Sodium 135 , potassium 3.7, BUN 12, creatinine 0.5, glucose 344, liver chemistries-AST 19, ALT 36, alkaline phosphatase 151 (elevated), cardiac enzymes-troponin I-0.01, INR 0.87,INR 0.87, d-dimer less than 200. Chest [id number] no consolidation however had bronchial wall thickening likely from viral infection. Head CT revealed no acute intracranial pathology. Echocardiogram done 01/07/2017 revealed Normal size left ventricle. Severe concentric left ventricular hypertrophy. No obvious regional wall motion abnormalities. Normal left ventricular ejection fraction visually estimated at > 65%. "pseudonormal" filling pattern of the left ventricle for age (stage 2 diastolic dysfunction). Normal right ventricular size and function. Normal atrial size. Trace mitral regurgitation. etiology in this case is likely unstable angina w/o elevated cardiac enzymes with positive cardiac risk factors smoking/age > 35/HLD/DM/HTN. Other etiologies such as anxiety,aortic dissection, GERD, coronary artery spasm or PE are to considered as differentials. In regards to his diabetes, he should be started on Levemir, and short-acting insulin. Problem list: # unstable angina pending stress test # history of diabetes # history of TIA # history of hypertension # history of DVT # Hx of Chronic back pain Hospital course: On admission, patient was continue on telemetry for cardiac monitoring, serial EKG/troponin have been negative 3. The patient was provided with daily aspirin , statins, and sublingual nitroglycerin for pain control. Patient was also restarted on metoprolol 25 mg by mouth twice daily after being found negative a urine tox for cocaine. Patient's lipid profile revealed hypertriglyceridemia, however no abnormal LDL was found. Patient's chest pain could be multifactorial, in addition to his underlying bronchitis, patient with possibly high risk cardiac patient due to his past medical history of being cardiac catheterized at [place] in 2014, however no stent was placed, and also his history of TIA in the past. Patient's diabetes mellitus will also put patient high risk for cardiac consideration. Stress test was scheduled for outpatient, and echo would also be needed as well. Patient was treated with azithromycin for bronchitis for total of 5 days ( including 2 more days after discharge). We have discussed with Dr. Cloud, patient's PCP, about his antiplatelet medications. As per Dr. Cloud, patient was on dual antiplatelet therapy for indication of recurrent TIAs, with "multiple hospitalization". However the pharmacy patient's 1 for prescription refill has no aspirin on file. Patient was advised to continue taking aspirin 81 mg daily in addition to his Plavix 75 mg daily after being seen by PCP/manager sound. Patient was kept on NovoLog sliding scale/Accu-Chek for his diabetes, including diabetic diet. DVT prophylaxis-heparin subcutaneous Full code. Allergies: Coded Allergies: krysten (Intermediate, RASH 11/30/17) latex (BLISTERS 11/30/17) Pertinent Lab Results: SERVICE DATE: 01/13/18-2051 EXAM TYPE: RAD - XRY-CHEST XRAY, TWO VIEWS IMPRESSION: No consolidation. Bronchial wall thickening can be seen with a small airways process such as asthma or atypical/viral infection. SERVICE DATE: 01/13/18 EXAM TYPE: CAT - CT HEAD WO IV CONTRAST IMPRESSION: No acute intracranial pathology. Disposition Summary Disposition Principal Diagnosis: # unstable angina pending stress test outpatient # history of diabetes # history of TIA # history of hypertension # history of DVT # Hx of Chronic back pain Additional Diagnosis: as above Discharge Disposition: home health services Discharge Instructions General Discharge Information Code Status: Full Code Patient's Diet: Diabetic Patient's Activity: As tolerated Follow-Up Instructions/Appts: - Please follow up with your manager sound Dr. Chavez within a week for your stress test and echocardiography. - Please follow up with your primary care physician within 1-2 weeks of discharge. Inform your primary care physician of this admission to [facility]. - Continue your current medications per discharge instructions. - Please watch for these problems: Fever, Chills, Nausea, Vomiting, Shortness of Breath, Productive Cough, Chest Pain/Discomfort, Abdominal Pain, Active Bleeding or Bloody urine/stool. Medications at Discharge Discharge Medications: Continue taking these medications: Atorvastatin Calcium (Atorvastatin Calcium) 40 MG TABLET 1 Tablet ORAL DAILY Qty = 30 Comments: Last Taken: 01/16/18 Time: 0905 Hydralazine HCl (Hydralazine HCl) 10 MG TABLET 1 Tablet ORAL THREE TIMES DAILY Qty = 30 Comments: NOT GIVEN Sitagliptin Phosphate (Januvia) 100 MG TABLET 1 Tablet ORAL DAILY Qty = 30 Comments: NOT GIVEN IN HOSPITAL Metoprolol Tartrate (Metoprolol Tartrate) 50 MG TABLET 1 Tablet ORAL DAILY Qty = 30 Comments: NOT GIVEN Furosemide (Lasix) 40 MG TABLET 1 Tablet ORAL DAILY Qty = 30 Comments: NOT GIVEN Hyoscyamine Sulfate (Levsin-Sl) 0.125 MG TAB.SUBL 1-2 Tablet SUBLINGUAL EVERY 4 HOURS NEEDED as needed for abdominal pain Qty = 60 Comments: NOT GIVEN Insulin Aspart (Novolog) 100 UNIT/ML VIAL Units Inject into fatty tissue BEFORE MEALS AND AT BEDTIME Comments: Last Taken:01/16/18 Time:0419 Nicotine (Nicotine Patch) 14 MG/24 HOUR PATCH.TD24 1 Patch On the skin DAILY Qty = 30 Comments: NOT GIVEN Humulin 70-30 (Humulin 70-30 Vial) 100 UNIT/ML (70-30) VIAL 14 Units Inject into fatty tissue Every Morning Qty = 20 Comments: NOT GIVEN Clopidogrel Bisulfate (Clopidogrel) 75 MG TABLET 1 Tablet ORAL DAILY Qty = 30 Comments: NOT GIVEN Start taking the following new medications: Aspirin (Aspirin*) 81 MG TAB.CHEW 1 Tablet ORAL DAILY Qty = 30 No Refills Comments: Last Taken:01/16/18 Time:09 Copies To: Erick CATALAN,Brenton Fowler Attending MD Review Statement Documenting Attending: Marilia Harrison MD Other Findings: 52 o/m with atypical chest pain in high risk patient and accelrated hypertension. Patient admitted to telemetry monitoring. Cardiology consulted, plan for stress test as per cardiology outpatient. Continue with antiplatelet therapy. statin. Follow up o/p PCP in 3-5 days of dsicharge and cardiology in 2- 3 weeks of discharge. In case his recurrent chest pain he should be advised to call 911 or come to ER.
[2018-01-16] MEDS ORDERED: CLOPIDOGREL75 M1 PO (10:56)
--- NOTE | 2018-01-16 11:06 | Event Note ---
Event Note Event Note: Discussed w/ Dr Cloud about his anti-platelet medications. As per Dr. Cloud, Mr Haq is on DAPT for an indication of recurrent TIAs; "multiple hospitalizations for TIAs" as per Dr. Cloud. Discussed w/ him to follow up closely after discharge to coordinate his stress test and continue his anti-platelet medications after discussing w/ the neurologist.
--- NOTE | 2018-01-16 12:16 | PN- Cardiology ---
Subjective Subjective: Continues to deny any recurrent chest discomfort. Denies any shortness of breath or palpitations. He is ambulating without any symptoms. Objective Vital Signs and I&Os Vital Signs Date Time Temp Pulse Resp B/P B/P Pulse O2 O2 Flow FiO2 Mean Ox Delivery Rate 01/16 0905 66 156/110 01/16 0701 98.2 66 12 156/110 94 Room Air 01/15 2201 98.0 74 20 148/80 93 Room Air 01/15 2200 91 Room Air 01/15 2127 72 148/80 01/15 1541 180/100 01/15 1345 98.2 66 20 180/100 93 Room Air Intake & Output 01/16 1600 01/16 0800 01/16 0000 01/15 1600 01/15 0801/15 0000 Intake Total 110 680 110 650 Output Total 175 Balance 110 680 -65 650 Intake, IV 10 10 Intake, Oral 100 680 100 650 Output, Urine 175 Patient 265 lb 272 lb Weight Weight Bed scale Bed scale Measurement Method Physical Exam: General: no apparent distress. Alert. Overweight Eyes: No obvious scleral icterus. HEENT: No jugular venous distention or abnormal jugular venous pulsations. Cardiovascular: Normal intensity S1/S2. Regular Respiratory: Lungs clear to auscultation bilaterally. Abdomen: Soft, nontender with no guarding or rebound tenderness. Musculoskeletal: No clubbing or cyanosis noted Skin: Warm Neurologic: No gross focal deficits noted. Current Medications: Current Medications Sig/Glenda Start time Last Medication Dose Route Stop Time Status Admin Acetaminophen 325 MG Q6P PRN 01/14 0345 DCD PO Albuterol Sulfate 3 ML Q4P PRN 01/15 1130 DCD INH Aspirin 81 MG DAILY 01/14 1000 DCD 01/16 PO 0905 Atorvastatin Calcium 40 MG DAILY 01/14 1000 DCD 01/16 PO 0905 Azithromycin 250 MG DAILY 01/15 1000 DCD 01/16 PO 01/18 1001 0905 Dextrose/Sodium 1,000 ML Q13H 01/15 2300 DC 01/15 Chloride IV 01/16 1159 2303 Glycerin 2 SPRAY Q2P PRN 01/15 0245 DCD 01/15 PO 0323 Heparin Sodium 5,000 UNIT Q8 01/14 0600 DCD 01/16 (Porcine) [place] 0553 Insulin Aspart 0 Q4H 01/16 0400 DCD 01/16 [place] 0419 Insulin Aspart 0 Q4 01/[address] [facility] Insulin Aspart 0 EVERY FOUR HOURS 01/15 2200 IN 01/15 [place] 2127 Insulin Aspart 0 AT BEDTIME 01/14 220 DC 01/14 AK 212 Insulin Aspart 0 TIDAC 01/14 0800 DC 01/15 AK 01/15 2059 1703 Insulin Detemir 15 UNITS BID 01/14 2200 DCD 01/15 AK 212 Insulin Human Regular 0 Q6 01/16 0017 DC 01/16 AK 0026 Lidocaine 1 CINTIA ONCE ONE 01/16 0045 DC 01/16 TOP 01/16 0046 0059 Lisinopril 20 MG DAILY 01/16 1000 DCD 01/16 PO 0905 Lisinopril 10 MG ONCE ONE 01/15 1400 DC 01/15 PO 01/15 1401 1541 Lisinopril 10 MG DAILY 01/15 1000 DC 01/15 PO 1104 Metoprolol Tartrate 25 MG BID 01/14 2214 DC 01/15 PO 2127 Oxycodone/ 1 TAB ONCE ONE 01/16 0030 DC 01/16 Acetaminophen PO 01/16 0031 0037 Oxycodone/ 1 TAB Q6P PRN 01/14 0345 DCD 01/16 Acetaminophen PO 0905 Tramadol HCl 50 MG Q6 PRN 01/14 0345 DCD 01/16 PO 0024 Results Last 48 Hrs of Labs/Mics: Laboratory Tests 01/16/18 0720: Anion Gap 7, Estimated GFR > 60, BUN/Creatinine Ratio 26.0 H 01/16/18 0420: Urine Color YEL, Urine Clarity CLEAR, Urine pH 6.0, Ur Specific [place] >= 1.030 , Urine Protein NEG, Urine Ketones NEG, Urine Nitrite NEG, Urine Bilirubin NEG, Urine Urobilinogen 0.2, Ur Leukocyte Esterase NEG, Ur Microscopic EXAM NOT REQUIRED, Urine Hemoglobin NEG, Urine Glucose >=1000 H 01/15/18 0625: Anion Gap 10, Estimated GFR > 60, BUN/Creatinine Ratio 20.0, CBC w Diff NO MAN DIFF REQ, RBC 4.82, MCV 91.4, MCH 30.8, MCHC 33.6, RDW 13.7, MPV 8.8, Gran % 54.2, Lymphocytes % 36.8, Monocytes % 6.7, Eosinophils % 2.1, Basophils % 0.2, Absolute Granulocytes 5.0, Absolute Lymphocytes 3.4, Absolute Monocytes 0.6, Absolute Eosinophils 0.2, Absolute Basophils 0 01/15/18 0135: Urine Opiates Screen < 100, Methadone Screen < 40, Barbiturate Screen < 60, Ur Phencyclidine Scrn < 6.00, Amphetamines Screen < 100, U Benzodiazepines Scrn < 85, Urine Cocaine Screen < 50, Urine Cannabis Screen < 5.00, Urine Color YEL, Urine Clarity CLEAR, Urine pH 6.0, Ur Specific [place] 1.015, Urine Protein NEG, Urine Ketones NEG, Urine Nitrite NEG, Urine Bilirubin NEG, Urine Urobilinogen 0.2, Ur Leukocyte Esterase NEG, Ur Microscopic SEDIMENT EXAMINED, Urine RBC 5-10 H, Urine WBC 1-3 H, Ur Epithelial Cells FEW, Urine Bacteria MOD H, Urine Hemoglobin TRACE-LYSED H, Urine Glucose >=1000 H 01/14/18 1732: Troponin I < 0.01 Recent Imaging Studies: Telemetry tracings are personally reviewed and shows sinus rhythm Assessment/Plan Assessment/Plan 1. Atypical chest pain, resolved with negative troponins and no arrhythmias on telemetry 2. History of noncompliance 3. Uncontrolled diabetes mellitus 4. Uncontrolled hypertension 5. History of TIA maintained on antiplatelet therapy 6. History of prior cardiac catheterization without reports of obstructive coronary artery disease or PCI 7. Nicotine dependence The patient's resolved chest discomfort was atypical for cardiac etiology; troponins are negative with no evidence of arrhythmia on telemetry and he is ambulating without any exertional symptoms. Per the [facility] stress lab his stress test cannot be done until tomorrow and given that he has no evidence of acute coronary syndrome he prefers to have further cardiac evaluation as an outpatient. He is aware of the importance of close follow-up after discharge and is aware of the significant cardiac risks of not complying with follow-up care. He is instructed to follow-up in our office within 1 week of discharge but should return to the hospital immediately via 911 with any new or recurrent symptoms. He will be continued on medical therapy given his CAD risk equivalent. Case was discussed in detail with the patient and also the hospital team and we are all currently in agreement. Polo Chavez MD [facility] Continue telemetry? No
== END 2018-01-16 11:55 | disposition home health service (06) | DRG 198 ==
LOC: ERH 20:47 → ERHI 01-14 00:50 → ENRESERV 01-14 02:26 → 1NO 01-14 03:00
PROVIDERS: Internal Medicine Endocrinology, Diabetes & Metabolism; Pediatrics
DX: I25.110 Atherosclerotic heart disease of native coronary artery with unstable angina pectoris (principal); Z91.19 Patient's noncompliance with other medical treatment and regimen; E66.01 Morbid (severe) obesity due to excess calories; Z68.41 Body mass index [BMI] 40.0-44.9, adult; E11.65 Type 2 diabetes mellitus with hyperglycemia; E78.5 Hyperlipidemia, unspecified; I25.2 Old myocardial infarction; F17.210 Nicotine dependence, cigarettes, uncomplicated; I50.32 Chronic diastolic (congestive) heart failure; Z86.73 Personal history of transient ischemic attack (TIA), and cerebral infarction without residual deficits; Z91.040 Latex allergy status; Z79.4 Long term (current) use of insulin; Z86.718 Personal history of other venous thrombosis and embolism; I10 Essential (primary) hypertension; Z96.649 Presence of unspecified artificial hip joint; M54.9 Dorsalgia, unspecified; Z98.61 Coronary angioplasty status
CPT/HCPCS: 1NSP; 36592; 71046; 80307; 81001; 81003; 82436; 87070; 87804; 87804-59; 93005; 93010; J0456; J1644; J1815; J3490; J7042; J7060

== ENCOUNTER 2018-02-13 09:54 | Emergency (ER) | payer OTHER ==
[~2018-02-13] VITALS: Ht 167.6 cm; Wt 117.9 kg
[~2018-02-13 09:54] MED LIST changes: +ASPIRIN81 M4 PO; +CLOPIDOGREL75 M1 PO; +HUMULIN 70100 UNIT/1 SC; +NICOTINE PATCH1 EAC2 TOP
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
[2018-02-13 13:07] LABS: ABSOLUTE BASOPHIL COUNT 0.1 /CUMM (0.0-0.2); ABSOLUTE EOSINOPHIL COUNT 0.2 /CUMM (0.0-0.7); ABSOLUTE GRANULOCYTE CT 7.5 /CUMM (1.4-6.5); ABSOLUTE LYMPH COUNT 2.3 /CUMM (1.2-3.4); ABSOLUTE MONOCYTE COUNT 0.6 /CUMM (0.10-0.60); BASOPHIL % 0.6 % (0.0-2.0); GRANULOCYTE % 70.6 % (42.2-75.2); HEMATOCRIT 43.5 % (42-52); MEAN CORPUSCULAR HGB 31.5 PG (27.0-31.0); MEAN CORPUSCULAR HGB CONC 34.7 G/DL (33.0-37.0); MEAN CORPUSCULAR VOLUME 90.7 FL (80.0-94.0); MEAN PLATELET VOLUME 8.2 FL (7.4-10.4); PLATELET COUNT 293 /CUMM (130-400); RBC DISTRIBUTION WIDTH 13.7 % (11.5-14.5); RED BLOOD CELL CT 4.79 /CUMM (4.70-6.10); WHITE BLOOD CELL COUNT 10.6 /CUMM (4.8-10.8)
--- NOTE | 2018-02-13 15:13 | CT SCAN REPORT ---
EXAMINATION: CT HEAD WITHOUT CONTRAST CLINICAL INFORMATION: CVA. COMPARISON: Head CT 01/13/2018. TECHNIQUE: Contiguous axial imaging was performed from the skull base to vertex without intravenous administration of contrast. DLP: 620 mGy-cm. FINDINGS: There is no intracranial hemorrhage, large infarction, or mass lesion. There is no extra-axial collection. There is redemonstration of chronic lacunar infarct within the right caudate head and within the right lentiform nucleus. The ventricles are stable in size without evidence of hydrocephalus. The paranasal sinuses are clear. The mastoids and middle ear cavities are clear. IMPRESSION: - No acute intracranial abnormality. - Chronic infarct in the right caudate head and right lentiform nucleus.
[2018-02-13 16:27] VITALS: BP 148/90
[2018-02-15] MEDS ORDERED: DIFLUCAN150 M1 PO (01:26)
[2018-02-15] MEDS ORDERED: NYSTATIN-TRIAMC15 G1 TOP (01:26)
[2018-03-30] MEDS ORDERED: ZITHROMAX250 M2 PO (11:48)
[2018-03-30] MEDS ORDERED: DELTASONE20 MG PO (11:48)
[2018-04-16] MEDS ORDERED: PERCOCET 5-3251 EACH PO (23:29)
[2018-04-16] MEDS ORDERED: IBUPROFEN800 M1 PO (23:29)
[2018-04-16] MEDS ORDERED: CYCLOBENZAPRINE10 M1 PO (23:29)
[2018-05-27] MEDS ORDERED: PERCOCET 5-3251 EACH PO (23:29)
[2018-06-08] MEDS ORDERED: OMEPRAZOLE40 M1 PO (16:12)
[2018-06-08] MEDS ORDERED: OXYCODONE HCL5 M1 PO (16:12)
== END 2018-02-13 16:28 ==
LOC: ERH 09:54
PROVIDERS: Student in an Organized Health Care Education/Training Program
DX: R20.2 Paresthesia of skin (principal)
CPT/HCPCS: 93005; 93010; 96374; 96376

== ENCOUNTER 2018-04-10 18:51 | Emergency (ER) | payer OTHER ==
[~2018-04-10] VITALS: Ht 167.6 cm; Wt 113.4 kg
[~2018-04-10 18:51] MED LIST changes: +DELTASONE20 MG PO; +DIFLUCAN150 M1 PO; +NYSTATIN-TRIAMC15 G1 TOP
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
[2018-04-10 22:10] LABS: ABSOLUTE BASOPHIL COUNT 0.1 /CUMM (0.0-0.2); ABSOLUTE EOSINOPHIL COUNT 0.2 /CUMM (0.0-0.7); ABSOLUTE GRANULOCYTE CT 7.2 /CUMM (1.4-6.5); ABSOLUTE LYMPH COUNT 2.9 /CUMM (1.2-3.4); ABSOLUTE MONOCYTE COUNT 0.7 /CUMM (0.10-0.60); BASOPHIL % 0.5 % (0.0-2.0); EOSINOPHIL % 2.1 % (0-5); GRANULOCYTE % 64.6 % (42.2-75.2); HEMATOCRIT 44.6 % (42-52); MEAN CORPUSCULAR HGB 30.4 PG (27.0-31.0); MEAN CORPUSCULAR HGB CONC 33.6 G/DL (33.0-37.0); MEAN CORPUSCULAR VOLUME 90.6 FL (80.0-94.0); MEAN PLATELET VOLUME 8.2 FL (7.4-10.4); PLATELET COUNT 311 /CUMM (130-400); RBC DISTRIBUTION WIDTH 14.6 % (11.5-14.5); RED BLOOD CELL CT 4.92 /CUMM (4.70-6.10); WHITE BLOOD CELL COUNT 11.1 /CUMM (4.8-10.8)
--- NOTE | 2018-04-10 23:35 | RADIOLOGY REPORT ---
EXAMINATION: XR CHEST CLINICAL INFORMATION: Chest pain COMPARISON: 03/30/2018 TECHNIQUE: 2 views of the chest were obtained. FINDINGS: No focal consolidation, pulmonary edema, or pleural effusion. Stable cardiomediastinal silhouette. IMPRESSION: No acute cardiopulmonary findings. No change.
[2018-04-11] MEDS ORDERED: CLOTRIMAZOLE15 GM TOP (00:54)
[2018-04-11] MEDS ORDERED: DIFLUCAN150 M1 PO (00:54)
[2018-04-11 01:37] VITALS: BP 167/86
== END 2018-04-11 01:38 ==
LOC: ERH 18:51
PROVIDERS: Physician Assistant Medical
DX: N48.1 Balanitis (principal); I10 Essential (primary) hypertension; R07.89 Other chest pain; F17.210 Nicotine dependence, cigarettes, uncomplicated
CPT/HCPCS: 71046; 81001; 87491; 87591; 93005; 93010; 96372; 96374; 96375; 96376; J0456; J0696